=== PATIENT | female | born 1955 | race Caucasian/White ===

== ENCOUNTER 2017-02-18 10:53 | Emergency (ER) | payer MEDICAID, SELFPAY ==
[2017-02-18 10:53] VITALS: BP 112/59; PULSE 151; RESP 24; TEMP 36.2; O2SAT 91; BMI 18.6
--- NOTE | 2017-02-18 10:56 | PC.NURSE ---
fsbs 133
--- NOTE | 2017-02-18 10:58 | PC.NURSE ---
pt to ct
--- NOTE | 2017-02-18 11:04 | XR_ITS ---
XR chest AP HISTORY: ITS.REASON: abnormal heart rate ORDERING PHYSICIAN: Karo Shook MD PATIENT AGE: 61 years COMPARISON: 09/22/2015 FINDINGS: Normal heart size. Tripolar pacemaker is present from left subclavian approach.] Clip in Mediport catheter is present. The tip is difficult to visualize due to the overlying pacer wires.. There is some patchy density left lung base which may be due to an area of atelectasis or infiltrate. Clips present in the left supraclavicular region. There is an old left sixth rib fracture. No acute bony abnormalities. IMPRESSION: Left lower lobe atelectasis or infiltrate
--- NOTE | 2017-02-18 11:06 | CT_ITS ---
CT head/brain wo con HISTORY: Altered mental status, confusion, decreased consciousness, seizure versus CVA ITS.REASON: SEIZURE VS CVA ORDERING PHYSICIAN: Karo Shook MD PATIENT AGE: 61 years COMPARISON: 09/22/2015 TECHNIQUE: Axial images obtained without contrast. Brain and bone windows reviewed. FINDINGS: No midline shift, mass effect, intracranial hemorrhage, hydrocephalus, or extra-axial fluid collection is evident. There is generalized atrophy with periventricular ischemic gliotic change. There is slight increased cortical density in the right frontal area similar to the previous exam nonspecific. No acute intracranial hemorrhage. The calvarium has an unremarkable appearance. No mastoid effusion. No sinus air-fluid levels.. IMPRESSION: 1. No change from 09/22/2015 with no acute finding. 2. Atrophy with chronic ischemic change. 3. There is no evidence of intracranial hemorrhage, focal mass, or acute territorial infarction. A negative CT does not exclude an acute CVA. A follow-up head CT or MRI is recommended if neurological symptoms persist
[2017-02-18 11:09] LABS: POC Glucose,Bedside 133 mg/dL
--- NOTE | 2017-02-18 11:16 | HMH.EDGENADL ---
ED Disposition Clinical Impression: Defibrillator discharge, Sepsis, Seizure Pneumonia Qualifiers: Laterality: left Lung location: lower lobe of lung Disposition: Xfer Short-Term Hosp Condition on Discharge: Serious Instructions: DI for Altered Mental Status Referrals: Nickolas Pagan MD [Primary Care Provider] - Forms: Transfer Record - ED - Critical Care Critical Care Time: Yes Attestation: On , the high probability of a clinically significant, sudden or life threatening deterioration of the following system(s) required my full and direct attention, intervention and personal management. The time I documented below is in addition to time spent performing reported procedures but includes the following listed in this critical care notation. Total Critical Care Time: 60 Vital system(s) involved:: Circulatory Failure, Shock (Septic) My critical care processes included: Assessment & monitoring of V/S, Initial and Re-exams, Data Review/Interpretation, Coordinating Care, Medication Orders and management, Documentation Comment: consultation; d/w caregiver; d/w EMS; reassessments. Medical Decision Making Vital Signs: 02/18/17 10:53 02/18/17 11:48 02/18/17 12:00 Temperature 97.1 F L 100.3 F H Temperature Source Temporal Artery Scan Rectal Pulse Rate Pulse Rate [Apical] 151 H 133 H 125 H Respiratory Rate 24 20 20 Blood Pressure Blood Pressure [Left Arm] 112/59 116/80 117/71 Blood Pressure Mean [Left Arm] 76 92 86 Blood Pressure Source Blood Pressure Source [Left Arm] Automatic Cuff Automatic Cuff Automatic Cuff Blood Pressure Position Blood Pressure Position [Left Arm] Supine Supine Supine 02 Sat by Pulse Oximetry 91 L 97 97 Oxygen Delivery Method Room Air Room Air Room Air 02/18/17 13:01 Temperature 97.1 F L Temperature Source Temporal Artery Scan Pulse Rate 112 H Pulse Rate [Apical] Respiratory Rate 20 Blood Pressure 123/65 Blood Pressure [Left Arm] Blood Pressure Mean [Left Arm] Blood Pressure Source Automatic Cuff Blood Pressure Source [Left Arm] Blood Pressure Position Supine Blood Pressure Position [Left Arm] 02 Sat by Pulse Oximetry Oxygen Delivery Method Room Air - Lab Data Lab results reviewed: Yes: I reviewed the patient's lab results. Lab Results 02/18/17 10:55: POC Glucose 133 02/18/17 11:20: WBC 16.0 H, RBC 4.03 L, Hgb 14.8, Hct 45.1, MCV 112.0 H, MCH 36.7 H, MCHC 32.8, RDW 15.9, Plt Count 78 L, MPV 8.7, Neut % (Auto) 94.5 H, Lymph % (Auto) 3.1 L, [place] % (Auto) 1.5 L, Eos % (Auto) 0.7, Baso % (Auto) 0.3, Neut # (Auto) 15.1 H, Lymph # (Auto) 0.5 L, [place] # (Auto) 0.2, Eos # (Auto) 0.1, Baso # (Auto) 0.1, Total Counted 100, Neutrophils % (Manual) 71, Band Neutrophils % 20.0 H, Lymphocytes % (Manual) 7 L, Monocytes % (Manual) 2, Platelet Estimate Marked decrease, Macrocytosis 2+ 02/18/17 11:20: Sodium 136, Potassium 2.4 L*, Chloride 95 L, Carbon Dioxide 13 L, Anion Gap 30.4 H, BUN 18, Creatinine 1.55 H, Estimated Creat Clear 28, Estimated GFR 34 L, Est GFR ( Amer) 41 L, Glucose 142 H, Calcium 9.5, Magnesium 0.7 L, Total Bilirubin 1.0, AST 55 H, ALT 18, Alkaline Phosphatase 64, Troponin I 0.12 H, Total Protein 8.1, Albumin 3.0 L, Globulin 5.1 H, Albumin/Globulin Ratio 0.6 L, Plasma/Serum Alcohol 0 02/18/17 11:50: Urine Color Yellow, Urine Appearance Cloudy, Urine pH 6.0, Ur Specific [place] 1.020, Urine Protein 2+, Urine Glucose (UA) Negative, Urine Ketones Negative, Urine Blood 2+, Urine Nitrate Negative, Urine Bilirubin Negative, Urine Urobilinogen 0.2, Ur Leukocyte Esterase 2+ A, Urine RBC Occasional, Urine WBC 20-50, Ur Squamous Epith Cells 5-10, Urine Bacteria 4+ 02/18/17 11:53: Influenza Type A Ag Negative, Influenza Type B Ag Negative 02/18/17 : Urine Opiates Screen Negative, Ur Barbituates Screen Negative, Ur Phencyclidine Scrn Negative, Ur Amphetamines Screen Negative, U Methamphetamines Scrn Negative, U Benzodiazepines Scrn Negative, Urine Cocaine Screen Negative, U Marij
--- NOTE | 2017-02-18 11:21 | ED_ITS ---
ED Disposition Clinical Impression: Defibrillator discharge, Sepsis, Seizure Pneumonia Qualifiers: Laterality: left Lung location: lower lobe of lung Disposition: Xfer Short-Term Hosp Condition on Discharge: Serious Instructions: DI for Altered Mental Status Referrals: Nickolas Pagan MD [Primary Care Provider] - Forms: Transfer Record - ED - Critical Care Critical Care Time: Yes Attestation: On , the high probability of a clinically significant, sudden or life threatening deterioration of the following system(s) required my full and direct attention, intervention and personal management. The time I documented below is in addition to time spent performing reported procedures but includes the following listed in this critical care notation. Total Critical Care Time: 60 Vital system(s) involved:: Circulatory Failure, Shock (Septic) My critical care processes included: Assessment & monitoring of V/S, Initial and Re-exams, Data Review/Interpretation, Coordinating Care, Medication Orders and management, Documentation Comment: consultation; d/w caregiver; d/w EMS; reassessments. Medical Decision Making Vital Signs: 02/18/17 10:53 02/18/17 11:48 02/18/17 12:00 Temperature 97.1 F L 100.3 F H Temperature Source Temporal Artery Scan Rectal Pulse Rate Pulse Rate [Apical] 151 H 133 H 125 H Respiratory Rate 24 20 20 Blood Pressure Blood Pressure [Left Arm] 112/59 116/80 117/71 Blood Pressure Mean [Left Arm] 76 92 86 Blood Pressure Source Blood Pressure Source [Left Arm] Automatic Cuff Automatic Cuff Automatic Cuff Blood Pressure Position Blood Pressure Position [Left Arm] Supine Supine Supine 02 Sat by Pulse Oximetry 91 L 97 97 Oxygen Delivery Method Room Air Room Air Room Air 02/18/17 13:01 Temperature 97.1 F L Temperature Source Temporal Artery Scan Pulse Rate 112 H Pulse Rate [Apical] Respiratory Rate 20 Blood Pressure 123/65 Blood Pressure [Left Arm] Blood Pressure Mean [Left Arm] Blood Pressure Source Automatic Cuff Blood Pressure Source [Left Arm] Blood Pressure Position Supine Blood Pressure Position [Left Arm] 02 Sat by Pulse Oximetry Oxygen Delivery Method Room Air - Lab Data Lab results reviewed: Yes: I reviewed the patient's lab results. Lab Results 02/18/17 10:55: POC Glucose 133 02/18/17 11:20: WBC 16.0 H, RBC 4.03 L, Hgb 14.8, Hct 45.1, MCV 112.0 H, MCH 36.7 H, MCHC 32.8, RDW 15.9, Plt Count 78 L, MPV 8.7, Neut % (Auto) 94.5 H, Lymph % (Auto) 3.1 L, [place] % (Auto) 1.5 L, Eos % (Auto) 0.7, Baso % (Auto) 0.3, Neut # (Auto) 15.1 H, Lymph # (Auto) 0.5 L, [place] # (Auto) 0.2, Eos # (Auto) 0.1 , Baso # (Auto) 0.1, Total Counted 100, Neutrophils % (Manual) 71, Band Neutrophils % 20.0 H, Lymphocytes % (Manual) 7 L, Monocytes % (Manual) 2, Platelet Estimate Marked decrease, Macrocytosis 2+ 02/18/17 11:20: Sodium 136, Potassium 2.4 L*, Chloride 95 L, Carbon Dioxide 13 L , Anion Gap 30.4 H, BUN 18, Creatinine 1.55 H, Estimated Creat Clear 28, Estimated GFR 34 L, Est GFR ( Amer) 41 L, Glucose 142 H, Calcium 9.5, Magnesium 0.7 L, Total Bilirubin 1.0, AST 55 H, ALT 18, Alkaline Phosphatase 64 , Troponin I 0.12 H, Total Protein 8.1, Albumin 3.0 L, Globulin 5.1 H, Albumin/ Globulin Ratio 0.6 L, Plasma/Serum Alcohol 0 02/18/17 11:50: Urine Color Yellow, Urine Appearance Cloudy, Urine pH 6.0, Ur Specifi
--- NOTE | 2017-02-18 11:28 | PC.NURSE ---
Addendum entered by Mireille Adams RN 02/18/17 11:29: Pt return from ct at this time Original Note: pt to ct
[2017-02-18 11:31] LABS: Basophils # 0.1 K/mm3 (0-0.2); Basophils % 0.3 % (0.1-2.0); Eosinophils # 0.1 K/mm3 (0.0-0.4); Eosinophils % 0.7 % (0.1-12.0); Hematocrit 45.1 % (37.0-47.0); Hemoglobin 14.8 g/dL (12.2-16.2); Lymphocytes # 0.5 K/mm3 (0.7-4.5); Lymphocytes % 3.1 K/mm3 (10-50); Mean Corpuscular HGB Conc 32.8 g/dL (31.8-35.4); Mean Corpuscular Hemoglobin 36.7 pg (27.0-31.2); Mean Platelet Volume 8.7 fl (7.4-10.4); Monocytes # 0.2 K/mm3 (0.1-1.0); Monocytes % 1.5 % (1.7-9.3); Neutrophils # 15.1 K/mm3 (1.8-7.8); Neutrophils % 94.5 % (37.0-80.0); Platelet Count 78 K/mm3 (142-424); Red Blood Count 4.03 M/mm3 (4.20-5.40); Red Cell Distribution Width 15.9 % (11.5-17.5)
[2017-02-18 11:39] LABS: MANUAL DIFFERENTIAL MANUAL DIFFERENTIAL (MANUAL DIFF)
[2017-02-18 11:48] VITALS: BP 116/80; PULSE 133; RESP 20; TEMP 37.9; O2SAT 97
[2017-02-18 11:55] LABS: Microscopic, Urine URINE MICROSCOPIC (MICROSCOPIC)
[2017-02-18 12:00] VITALS: BP 117/71; PULSE 125; RESP 20; O2SAT 97
[2017-02-18 12:01] LABS: Appearance,Urine CLOUDY (Clear); Bilirubin,Urine Negative (Negative); Blood, Urine 2+ (Negative); Color,Urine YELLOW (Yellow); Glucose,Urine (UA) Negative (Negative); Ketones,Urine Negative (Negative); Leukocyte Esterase,Urine 2+ (Negative); Nitrate,Urine Negative (Negative); Protein,Urine 2+ (Negative); Urobilinogen,Urine 0.2 EU/dl (0.2)
--- NOTE | 2017-02-18 12:11 | PC.NURSE ---
contacting [facility] per ER MD request to speak with [facility]
--- NOTE | 2017-02-18 12:18 | PC.NURSE ---
Addendum entered by Mireille Adams RN 02/18/17 12:19: Speaking with Dr. Webster at [facility]. Original Note: ZEKE GAITAN speaking with Dr. Webster.
[2017-02-18 12:19] LABS: Albumin/Globulin Ratio 0.6 (1.1-1.8); Alkaline Phosphatase 64 U/L (46-116); Blood Urea Nitrogen 18 mg/dL (7-18); Calcium 9.5 mg/dL (8.5-10.1); Carbon Dioxide 13 mmol/L (21.0-32.0); Creatinine Clearance Estimated 28 mL/min (0-300); Creatinine,Serum 1.55 mg/dL (0.55-1.02); Estimated Glomerular Filt Rate 34 ml/min (>60); GFR (African American) 41 ML/MIN (>60); Globulin 5.1 gm/dl (1.3-3.2); Glucose 142 mg/dL (74-106); Total Protein,Serum 8.1 gm/dL (6.4-8.2); Troponin I 0.12 ng/ml (0.00-0.06)
--- NOTE | 2017-02-18 12:22 | PC.NURSE ---
Pt accepted to [facility]
[2017-02-18 12:23] LABS: Lactic Acid 13.5 mmol/L (0.4-2.0)
--- NOTE | 2017-02-18 12:31 | PC.NURSE ---
notified [facility] of transfer to er
[2017-02-18 12:32] LABS: Anion Gap 30.4 mEq/L (5-15); Aspartate Amino Transferase 55 U/L (15-37); Chloride 95 mmol/L (98-107); Sodium 136 mmol/L (136-145)
[2017-02-18 12:35] LABS: Ethyl Alcohol 0 mg/dL (0-99); Magnesium 0.7 mg/dL (1.4-2.2); Potassium 2.4 mmoL/L (3.5-5.1)
[2017-02-18 12:44] LABS: RBC,Urine Occasional #/hpf (0-3); WBC,Urine 20-50 #/hpf (0-3)
[2017-02-18 12:45] LABS: Bacteria,Urine 4+ /lpf
[2017-02-18 12:48] LABS: Amphetamine/Metha Screen,Urine Negative ng/mL (<1000); Barbiturates Screen,Urine Negative ng/mL (<200); Benzodiazepines Screen,Urine Negative ng/mL (200); Cannabinoid Screen,Urine Negative ng/mL (<50); Cocaine Screen,Urine Negative ng/g (<300); Methadone Screen,Urine Negative ng/mL (<300); Opiate Screen,Urine Negative ng/mL (<300); Phencyclidine Screen,Urine Negative ng/mL (<25)
[2017-02-18 12:59] LABS: Reflex Lactic Add Lactic Reflex
[2017-02-18 13:01] VITALS: BP 123/65; PULSE 112; RESP 20; TEMP 36.2; O2SAT 95
[2017-02-18 13:02] LABS: Lymphocytes % 7 % (10-50); Monocytes % 2 % (2-9); Neutrophils % 71 % (42-76); Total Cells Counted 100
[2017-02-18 13:03] LABS: Alanine Aminotransferase 18 U/L (12-78); Platelet Estimate Marked Decrease
[2017-02-18 13:04] LABS: Macrocytosis 2+
--- NOTE | 2017-02-18 13:05 | PC.NURSE ---
report given to [facility] at this time.
--- NOTE | 2017-02-18 13:08 | PC.NURSE ---
report called to YONI Tobar at [facility].
== END 2017-02-18 13:08 | disposition short-term general hospital (02) ==
PROVIDERS: Emergency Provider Emergency Medicine; Family Provider Family Medicine; PCP Family Medicine
DX: T82.118A Breakdown (mechanical) of other cardiac electronic device, initial encounter (principal); A41.9 Sepsis, unspecified organism; R56.9 Unspecified convulsions; R00.0 Tachycardia, unspecified; R41.82 Altered mental status, unspecified; F10.10 Alcohol abuse, uncomplicated; Z79.899 Other long term (current) drug therapy; Z88.0 Allergy status to penicillin; Z88.2 Allergy status to sulfonamides; Z91.040 Latex allergy status
CPT/HCPCS: 70450; 71045; 80053; 80305; 81001; 82962; 83605; 83735; 84484; 85007; 85025; 87040; 87077; 87086; 87088; 87186; 87275; 87276; 93005; 93041; 96365; 96367; 96374; 96375; 99285

== ENCOUNTER 2017-03-09 15:48 | Outpatient (CLI) | payer MEDICAID, SELFPAY ==
[2017-03-09 15:50] VITALS: BP 108/55; PULSE 68; RESP 20; TEMP 36.3; O2SAT 95
[2017-03-09 16:19] VITALS: BMI 16.4
[2017-03-09 18:35] LABS: Thyroid Stimulating Hormone 3.06 uIU/ml (0.358-3.740)
[2017-03-13 10:52] LABS: Vitamin B12 >2000 pg/mL (232-1245)
== END 2017-03-09 16:00 | disposition home or self-care (01) ==
LOC: INF 15:49
PROVIDERS: PCP Family Medicine; Visit Provider Family Medicine
DX: E03.9 Hypothyroidism, unspecified (principal); D64.9 Anemia, unspecified; I42.6 Alcoholic cardiomyopathy; I95.9 Hypotension, unspecified
CPT/HCPCS: 82607; 84443; J1642

== ENCOUNTER 2017-03-25 12:16 | Outpatient (CLI) | payer MEDICAID, SELFPAY ==
[2017-03-25 12:49] VITALS: BMI 16.9
[2017-03-25 13:38] LABS: Alanine Aminotransferase 15 U/L (12-78); Albumin Level 3.2 gm/dL (3.4-5.0); Albumin/Globulin Ratio 0.7 (1.1-1.8); Alkaline Phosphatase 64 U/L (46-116); Anion Gap 15.7 mEq/L (5-15); Aspartate Amino Transferase 12 U/L (15-37); Bilirubin,Total 0.4 mg/dL (0.2-1.0); Blood Urea Nitrogen 10 mg/dL (7-18); Calcium 8.4 mg/dL (8.5-10.1); Carbon Dioxide 24 mmol/L (21.0-32.0); Chloride 103 mmol/L (98-107); Creatinine Clearance Estimated 45 mL/min (0-300); Creatinine,Serum 0.61 mg/dL (0.55-1.02); Estimated Glomerular Filt Rate 99 ml/min (>60); GFR (African American) 120 ML/MIN (>60); Globulin 4.6 gm/dl (1.3-3.2); Glucose 89 mg/dL (74-106); Potassium 3.7 mmoL/L (3.5-5.1); Sodium 139 mmol/L (136-145); Total Protein,Serum 7.8 gm/dL (6.4-8.2)
== END 2017-03-25 13:35 | disposition home or self-care (01) ==
LOC: LAB 12:19 → INF 12:21
PROVIDERS: PCP Family Medicine; Visit Provider Family Medicine
DX: I95.9 Hypotension, unspecified (principal)
CPT/HCPCS: 80053; 93225; 93226; J1642

== ENCOUNTER 2018-04-16 13:50 | Outpatient (CLI) | payer MEDICAID, SELFPAY ==
[2018-04-16 14:05] VITALS: BMI 16.9
[2018-04-16 14:44] LABS: Alanine Aminotransferase 21 U/L (12-78); Albumin Level 3.6 gm/dL (3.4-5.0); Albumin/Globulin Ratio 0.8 (1.1-1.8); Alkaline Phosphatase 66 U/L (46-116); Anion Gap 18.7 mEq/L (5-15); Aspartate Amino Transferase 35 U/L (15-37); Bilirubin,Total 0.8 mg/dL (0.2-1.0); Blood Urea Nitrogen 18 mg/dL (7-18); Calcium 9.2 mg/dL (8.5-10.1); Carbon Dioxide 23 mmol/L (21.0-32.0); Chloride 93 mmol/L (98-107); Creatinine Clearance Estimated 44 mL/min (50-200); Creatinine,Serum 0.81 mg/dL (0.55-1.02); Estimated Glomerular Filt Rate 71 ml/min (>60); GFR (African American) 86 ML/MIN (>60); Globulin 4.3 gm/dl (1.3-3.2); Glucose 86 mg/dL (74-106); Potassium 4.7 mmoL/L (3.5-5.1); Sodium 130 mmol/L (136-145); Total Protein,Serum 7.9 gm/dL (6.4-8.2)
[2018-04-16 15:13] LABS: Thyroid Stimulating Hormone 6.49 uIU/ml (0.358-3.740)
[2018-04-19 08:01] LABS: Vitamin B12 353 pg/mL (232-1245)
== END 2018-04-16 14:25 | disposition home or self-care (01) ==
LOC: INF 14:01
PROVIDERS: Visit Provider Family Medicine
DX: E03.9 Hypothyroidism, unspecified (principal); I95.9 Hypotension, unspecified; D64.9 Anemia, unspecified; I42.6 Alcoholic cardiomyopathy
CPT/HCPCS: 80053; 82607; 84443; J1642

== ENCOUNTER 2018-04-27 00:52 | Inpatient (IN) ==
[2018-04-27 01:21] LABS: Basophils # 0.1 K/mm3 (0-0.2); Basophils % 0.6 % (0.1-2.0); Eosinophils # 0.3 K/mm3 (0.0-0.4); Eosinophils % 2.7 % (0.1-12.0); Hematocrit 36.5 % (37.0-47.0); Hemoglobin 12.4 g/dL (12.2-16.2); Lymphocytes # 3.7 K/mm3 (0.7-4.5); Lymphocytes % 33.6 % (10-50); Mean Corpuscular Hemoglobin 37.6 pg (27.0-31.2); Mean Corpuscular Volume 110.5 fl (81-99); Mean Platelet Volume 7.1 fl (7.4-10.4); Monocytes # 0.5 K/mm3 (0.1-1.0); Monocytes % 4.6 % (1.7-9.3); Neutrophils # 6.4 K/mm3 (1.8-7.8); Neutrophils % 58.5 % (37.0-80.0); Platelet Count 197 K/mm3 (142-424); Red Cell Distribution Width 15.9 % (11.5-17.5)
--- NOTE | 2018-04-27 01:39 | Emergency Department Note ---
ED Disposition Clinical Impression: Colitis, Alcoholism, Hyponatremia, Low body mass index (BMI) Pancreatitis, acute Qualifiers: Pancreatitis type: alcohol induced Acute pancreatitis complication: no infection or necrosis Qualified Code(s): K85.20 - Alcohol induced acute pancreatitis without necrosis or infection Disposition: Admitted as Observation Condition on Discharge: Fair Referrals: Provider,Referral, [Primary Care Provider] - - Critical Care Critical Care Time: No Attestation: On 04/27/18, the high probability of a clinically significant, sudden or life threatening deterioration of the following system(s) required my full and direct attention, intervention and personal management. The time I documented below is in addition to time spent performing reported procedures but includes the following listed in this critical care notation. Medical Decision Making - Medical Records Medical records reviewed: Yes: I reviewed the patient's medical records. - Juan José Inquiry Pt receiving controlled substance: No Vital Signs: 04/27/18 00:53 04/27/18 01:46 04/27/18 02:59 Temperature 97.8 F 98.7 F 97.9 F Temperature Source Oral Rectal Oral Pulse Rate [Right] 82 99 H Respiratory Rate 22 16 Blood Pressure [Right Arm] 178/98 H 135/82 Blood Pressure Mean [Right Arm] 124 99 Blood Pressure Source [Right Arm] Automatic Cuff Blood Pressure Position [Right Arm] Supine 02 Sat by Pulse Oximetry 100 89 L Oxygen Delivery Method Room Air 04/27/18 04:00 04/27/18 05:00 04/27/18 06:00 Temperature Temperature Source Pulse Rate [Right] 84 82 83 Respiratory Rate Blood Pressure [Right Arm] 124/84 131/74 133/79 Blood Pressure Mean [Right Arm] 97 93 97 Blood Pressure Source [Right Arm] Blood Pressure Position [Right Arm] 02 Sat by Pulse Oximetry 98 92 L 93 L Oxygen Delivery Method - Lab Data Lab results reviewed: Yes: I reviewed the patient's lab results. Lab Results 04/27/18 01:15: WBC 11.0 H, RBC 3.30 L, Hgb 12.4, Hct 36.5 L, MCV 110.5 H, MCH 37.6 H, MCHC 34.0, RDW 15.9, Plt Count 197, MPV 7.1 L, Neut % (Auto) 58.5, Lymph % (Auto) 33.6, [place] % (Auto) 4.6, Eos % (Auto) 2.7, Baso % (Auto) 0.6, Neut # (Auto) 6.4, Lymph # (Auto) 3.7, [place] # (Auto) 0.5, Eos # (Auto) 0.3, Baso # (Auto) 0.1 04/27/18 01:15: Sodium 128 L, Potassium 4.3, Chloride 91 L, Carbon Dioxide 21, Anion Gap 20.3 H, BUN 10, Creatinine 0.68, Estimated Creat Clear 41, Estimated GFR 87, Est GFR ( Amer) 105, Glucose 111 H, Calcium 9.6, Total Bilirubin 0.5, AST 30, ALT 13, Alkaline Phosphatase 72, C-Reactive Protein 3.1 H, Total Protein 8.3 H, Albumin 3.8, Globulin 4.5 H, Albumin/Globulin Ratio 0.8 L, Amylase 140 H, Plasma/Serum Alcohol 45 04/27/18 01:15: ESR 34 H 04/27/18 01:15: Lipase 1072 H 04/27/18 01:45: Urine Color Yellow, Urine Appearance Clear, Urine pH 7.5, Ur Specific [place] 1.015, Urine Protein 2+, Urine Glucose (UA) Negative, Urine Ketones Negative, Urine Blood 1+, Urine Nitrate Negative, Urine Bilirubin Negative, Urine Urobilinogen 0.2, Ur Leukocyte Esterase Trace, Urine RBC 10-20, Urine WBC 3-5, Ur Squamous Epith Cells Occasional, Urine Bacteria 1+ 04/27/18 01:45: Stool Occult Blood Positive A Result diagrams: 04/27/18 01:15 04/27/18 01:15 Orders (Tests/Meds): ED MEDICATIONS Generic Name Dose Route Start Last Admin Trade Name Freq PRN Reason Stop Dose Admin Sodium Chloride 1,000 mls @ 999 mls/hr 04/27/18 01:15 04/27/18 01:22 Sod Chlor 0.9% 1000ml Bag IV 04/27/18 02:15 999 mls/hr .[id number] CORBIN Administration Discontinued Medications Generic Name Dose Route Start Last Admin Trade Name Freq PRN Reason Stop Dose Admin Diatrizoate Meglum/Diatrizoate Sod 30 ml 04/27/18 01:34 04/27/18 01:48 Gastrografin 66%-10% 30ml PO 04/27/18 01:35 30 ml ONCE ONE Administration Ioversol 75 ml 04/27/18 05:03 04/27/18 05:04 Rad-Optiray 350 100ml Vial IV 04/27/18 05:04 75 ml ONCE ONE Administration Ondansetron HCl 4 mg 04/27/18 01:46 04/27/18 01:47 Zofran 4mg/2ml Vial IV 04/27/18 01:47 4 mg ONCE ONE Administration Sodium Chloride 10 ml 04/27/18 05:03 04/27/18 05:04 Rad-Saline Flush 10ml Syringe IV 04/27/18 05:04 10 ml ONCE ONE Administration ORDERS Category Date Time Status CT abdomen pelvis w con Stat Cat Scan 04/27/18 01:34 Taken Lactic Acid Stat Lab 04/27/18 06:08 Ordered Magnesium Stat Lab 04/27/18 06:13 Ordered - CT Data CT Scan: Abdomen, Pelvis Time Received: 06:[address] Reviewed: Yes: I have viewed the radiologist's interpretation Preliminary Findings: Abnormal (colitis ) - Physician Consults Physician Consulted: ayesha Reason -: Admission General Adult HPI - General Chief complaint: PAIN Stated complaint: rectal bleeding Time Seen by Provider: 04/27/18 01:10 Mode of Arrival: EMS Source of Information: Patient, EMS, Medical Record Limitations: No Limitations Description of Symptoms (Recalled from ER Triage Doc. by RN): Pt states she had pain inher rectum with bleeding for a month, worse tonight - History of Present Illness HPI narrative: pt with c/o of rectal bleeding and rectal pain worse tonight but has hx of sx over the last few weeks - also has hx of etoh daily use- Onset (ago): day(s) Location: buttocks Severity: moderate Associated symptoms: denies other symptoms Treatments prior to arrival: none - Related Data Home Medications Medication Instructions Recorded Confirmed Carvedilol [Carvedilol 12.5mg Tab] 12.5 mg PO BID 02/18/17 04/27/18 Cholecalciferol (Vitamin D3) 2,000 iunits PO DAILY 02/18/17 04/27/18 [Vitamin D3] Estradiol 1 mg PO DAILY 02/18/17 04/27/18 Gabapentin [Gabapentin 300mg Cap] 300 mg PO TID 02/18/17 04/27/18 Levothyroxine Sodium 125 mcg PO DAILY 02/18/17 04/27/18 [Levothyroxine 125mcg (0.125mg) Tab] Oxazepam [Serax 10mg Capsule] 10 mg PO BID 02/18/17 04/27/18 Oxybutynin Chloride [Ditropan 5mg 10 mg PO TID 04/16/18 04/27/18 tablet] Allergies Allergy/AdvReac Type Severity Reaction Status Date / Time lisinopril [LISINOPRIL] Allergy Severe S-SWELLS-OR Verified 04/27/18 01:05 AL/THROAT Penicillins [PENICILLINS] Allergy Severe S-SWELLS-OR Verified 04/27/18 01:05 AL/THROAT Sulfa (Sulfonamide Allergy Severe S-SKIN Verified 04/27/18 01:05 Antibiotics) ERUPTIONS [SULFA (SULFONAMIDE ANTIBIOTICS)] sulfamethoxazole Allergy Severe S-SKIN Verified 04/27/18 01:05 [From BACTRIM] ERUPTIONS trimethoprim [From BACTRIM] Allergy Severe S-SKIN Verified 04/27/18 01:05 ERUPTIONS latex [LATEX] Allergy Intermediate I-RASH Verified 04/27/18 01:05 BANANAS (FOOD) Allergy Severe THROAT Uncoded 01/27/17 15:12 SWELLS [facility] History - Hepatitis A Screen Drug use history?: No High risk sexual behaviors?: No History of sexually transmitted infection?: No Currently employed?: No Childcare worker?: No Do you have indoor plumbing?: Yes Do you have electricity?: Yes Attestation statement:: This patient has been screened for Hepatitis A risk factors. I have reviewed the patient's past medical history: Yes Medical History: Denies:: Diabetes Mellitus Type 1, Diabetes Mellitus Type 2 - Social History Smoking Status: Current every day smoker Tobacco Type: cigarettes # Packs/Day (cigarettes): 1 Alcohol Intake: current Alcohol Intake Frequency:: 3 or more drinks per day Occupational Status: disabled - Psychiatric History Expresses thoughts of harming self/others: None Suicide Plan Description: No Plan ROS Obtained: Yes All systems reviewed & no additional complaints - Constitutional Constitutional: Denies fever(s), Reports weakness - Eyes Eyes: Denies change in vision - ENT Ears, Nose, Mouth, and Throat: Denies dizziness - Cardiovascular Cardiovascular: Denies chest pain - Respiratory Respiratory: No cough - Gastrointestinal Gastrointestingal: Reports: bright red blood in stools, other (rectal pain). Denies: abdominal pain, diarrhea - Genitourinary Female Genitourinary: Denies dysuria - Musculoskeletal Musculoskeletal: Denies joint swelling - Integumentary/Breasts Skin/Breast: Denies rash - Neurologic Neurologic: Denies seizure-like activity Physical Exam - General General appearance: in no apparent distress, cachectic - Head Head exam: normocephalic - Eye Eye exam: Present: PERRL, EOMI. Absent: scleral icterus - ENT ENT exam: Present: mucous membranes dry - Neck Neck exam: Present: trachea midline - Respiratory Respiratory exam: Present: normal lung sounds bilaterally. Absent: respiratory distress - Cardiovascular Cardiovascular exam: Present: regular rate, systolic murmur, +S4 - Abdominal Exam Abdominal exam: Present: soft Abdominal tenderness: Present: LLQ, moderate - Rectal Exam Rectal exam: Present: heme (+) stool. Absent: hemorrhoids - Extremities Exam Extremities exam: Absent: calf tenderness - Neurological Exam Neurological exam: Present: alert, CN II-XII intact - Psychiatric Psychiatric exam: Present: anxious - Skin Skin exam: Absent: rash
[2018-04-27 01:40] LABS: Albumin Level 3.8 gm/dL (3.4-5.0); Albumin/Globulin Ratio 0.8 (1.1-1.8); Anion Gap 20.3 mEq/L (5-15); Bilirubin,Total 0.5 mg/dL (0.2-1.0); Calcium 9.6 mg/dL (8.5-10.1); Globulin 4.5 gm/dl (1.3-3.2); Potassium 4.3 mmoL/L (3.5-5.1); Total Protein,Serum 8.3 gm/dL (6.4-8.2)
[2018-04-27 01:51] LABS: C-Reactive Protein 3.1 mg/L (0.0-0.9)
[2018-04-27 01:54] LABS: Microscopic, Urine URINE MICROSCOPIC (MICROSCOPIC)
[2018-04-27 01:55] LABS: Appearance,Urine CLEAR (Clear); Bilirubin,Urine Negative (Negative); Blood, Urine 1+ (Negative); Color,Urine YELLOW (Yellow); Glucose,Urine (UA) Negative (Negative); Ketones,Urine Negative (Negative); Leukocyte Esterase,Urine TRACE (Negative); PH,Urine 7.5 (5.0-8.5); Protein,Urine 2+ (Negative); Specific Gravity, Urine 1.015 (1.005-1.030); Urobilinogen,Urine 0.2 EU/dl (0.2)
[2018-04-27 02:02] LABS: Bacteria,Urine 1+ /lpf; Squamous Epithelial Cell,Urine Occasional #/hpf (0-5)
--- NOTE | 2018-04-27 07:41 | Pharmacy Consult Notes ---
[facility] Pharmacy VTE Monitoring - Patient Demographics Admission date: 04/27/18 Report Date: 04/27/18 Time: 07:41 Allergies/Adverse Reactions: Patient Allergies lisinopril [LISINOPRIL] Allergy (Severe, Verified 04/27/18 01:05) [id number]/THROAT Penicillins [PENICILLINS] Allergy (Severe, Verified 04/27/18 01:05) [id number]/THROAT Sulfa (Sulfonamide Antibiotics) [SULFA (SULFONAMIDE ANTIBIOTICS)] Allergy (Severe, Verified 04/27/18 01:05) S-SKIN ERUPTIONS sulfamethoxazole [From BACTRIM] Allergy (Severe, Verified 04/27/18 01:05) S-SKIN ERUPTIONS trimethoprim [From BACTRIM] Allergy (Severe, Verified 04/27/18 01:05) S-SKIN ERUPTIONS latex [LATEX] Allergy (Intermediate, Verified 04/27/18 01:05) I-RASH BANANAS (FOOD) Allergy (Severe, Uncoded 01/27/17 15:12) THROAT SWELLS Height: 1.7 m Weight: 45.359 kg Patient Problems: Current Active Problems Alcoholism (Acute) Pancreatitis, acute (Acute) Colitis (Acute) Hyponatremia (Acute) Low body mass index (BMI) (Acute) - VTE Risk Labs: VTE Related Lab Results Hgb 12.4 g/dL (12.2-16.2) 04/27/18 01:15 Hct 36.5 % (37.0-47.0) L 04/27/18 01:15 Plt Count 197 K/mm3 (142-424) 04/27/18 01:15 BUN 10 mg/dL (7-18) 04/27/18 01:15 Creatinine 0.68 mg/dL (0.55-1.02) 04/27/18 01:15 Estimated Creat Clear 41 mL/min (50-200) 04/27/18 01:15 Clinical Trial Participant: No - Prophylaxis VTE Prophylaxis Ordered?: Yes Types of VTE Prophylaxis: TEDS Knee High
--- NOTE | 2018-04-27 10:29 | History & Physical Report ---
*Admission Date: 04/27/18 *Chief complaint: Rectal bleeding *History of present illness: Ms. Ramirez is a 62-year-old female with a history of hypertension, alcohol abuse, peripheral neuropathy, cardiomyopathy, biventricular ICD implant, hypothyroidism, COPD, history of oral cancer, and anxiety and depression who presented to [facility] about 12 midnight complaining of rectal bleeding. She states she has been having rectal bleeding intermittently for the last month and she noticed yesterday an increase in the bleeding. She states the blood filled the toilet and was also on the toilet paper after wiping. She states she she had pain around the rectum which extended up through her abdomen to her lower chest. She ate and drank as usual yesterday. She did have some dry heaves from sinus drainage. Patient is noted to be an alcoholic. She states she drinks from the time she gets up until the time she goes to bed. Her choice is vodka with water and ice. She does smoke a pack and half of cigarettes a day. After admission patient denies any rectal pain. Rectal per Dr. Pagan revealed no hemorrhoids and no blood. Pancreatic enzymes are elevated. Patient denies any nausea or vomiting at present. She states she has been constipated and with the blood she has had some hard stool. CT of the abdomen revealed colitis of the distal descending colon and rectum. She was thus admitted and started on Flagyl, IV fluids, potassium and Levaquin. [facility] History Medical History: Reports:: Anxiety, Cancer (Mouth), Cardiomyopathy, Depression, Internal Pacemaker Denies:: Diabetes Mellitus Type 1, Diabetes Mellitus Type 2, MRSA *Have you ever received a pneumonia vaccine?: No *Have you received a flu vaccine this season?: Yes Other Medical History: Reports: Thyroid Disease Laterality Cases: Bilateral: Cataract, Myringotomy (Ear Tubes) Other Surgeries: Yes: Hysterectomy-Total, Pacemaker Amputation: No Comment: Bottom teeth extraction: Needle biopsy of both breast; Bartholin's duct cyst removal of the left labia; left radical neck dissection with trach; explor atory lap with right colon; incision and drainage of the left neck; biopsy on jaw; bilateral left. - *Social History Educational Level: Attended High School Smoking Status: Current every day smoker Tobacco Type: cigarettes # Packs/Day (cigarettes): 2 Alcohol Intake: current Alcohol Intake Frequency:: 3 or more drinks per day (Drinks from the time she gets up until the time she goes to bed; drinks vodka with water and ice) *Occupational Status:: disabled *Travel in the last 8 weeks: None - Psychiatric History Expresses thoughts of harming self/others: None Suicide Plan Description: No Plan Family Hx:: Cancer Review of Systems - Constitutional Denies body ache(s), Denies fever(s), Denies headache(s) - ENT Reports nasal congestion, Reports post nasal drip, Reports sore throat, Denies ear pain Comments: States she has terrible sinus issues with postnasal drainage, rhinorrhea, and thus a sore throat. - *Cardiovascular Denies chest pain, Denies shortness of breath - *Respiratory Reports cough (Chronic), Reports shortness of breath (Wears oxygen at night), Denies chest congestion - *Gastrointestinal Reports abdominal pain (Along with rectal pain), Reports change in bowel habits, Reports change in stools, Reports constipation, Reports nausea, Denies bloating, Denies coffee ground vomit, Denies heartburn, Denies vomiting blood, Denies black, tarry stools, Denies vomiting - *Genitourinary Reports urinary incontinence, Denies painful urination - *Musculoskeletal Reports decreased muscle mass, Reports muscle weakness - *Neurologic Reports weakness, Denies dizziness, Denies seizure-like activity - Psychiatric Reports depression Meds Home Medications Medication Instructions Recorded Confirmed Type Carvedilol [Carvedilol 12.5mg Tab] 12.5 mg PO BID 02/18/17 04/27/18 History Estradiol 1 mg PO DAILY 02/18/17 04/27/18 History Levothyroxine Sodium 125 mcg PO DAILY 02/18/17 04/27/18 History [Levothyroxine 125mcg (0.125mg) Tab] Oxybutynin Chloride [Ditropan 5mg 5 mg PO TID 04/16/18 04/27/18 History tablet] Albuterol Sulfate [Albuterol HFA 2 puffs IH Q6HP PRN 04/27/18 04/27/18 History Inhaler] Ergocalciferol (Vitamin D2) 2,000 unit PO DAILY 04/27/18 04/27/18 History [Vitamin D2] Ferrous Sulfate 325 mg PO BID 04/27/18 04/27/18 History Gabapentin [Gabapentin 300mg Cap] 300 mg PO TID 04/27/18 04/27/18 History Oxazepam [Serax 10mg Capsule] 10 mg PO BID 04/27/18 04/27/18 History Raloxifene HCl 60 mg PO DAILY 04/27/18 04/27/18 History Sertraline HCl [Zoloft 100mg 100 mg PO BID 04/27/18 04/27/18 History tablet] Spironolactone 25 mg PO DAILY 04/27/18 04/27/18 History Sucralfate [Sucralfate 1gm 2 gm PO BID 04/27/18 04/27/18 History Tab] Allergies Allergy/AdvReac Type Severity Reaction Status Date / Time lisinopril [LISINOPRIL] Allergy Severe S-SWELLS-OR Verified 04/27/18 01:05 AL/THROAT Penicillins [PENICILLINS] Allergy Severe S-SWELLS-OR Verified 04/27/18 01:05 AL/THROAT Sulfa (Sulfonamide Allergy Severe S-SKIN Verified 04/27/18 01:05 Antibiotics) ERUPTIONS [SULFA (SULFONAMIDE ANTIBIOTICS)] sulfamethoxazole Allergy Severe S-SKIN Verified 04/27/18 01:05 [From BACTRIM] ERUPTIONS trimethoprim [From BACTRIM] Allergy Severe S-SKIN Verified 04/27/18 01:05 ERUPTIONS latex [LATEX] Allergy Intermediate I-RASH Verified 04/27/18 01:05 BANANAS (FOOD) Allergy Severe THROAT Uncoded 01/27/17 15:12 SWELLS Exam Vital signs and Labs for Last 24 Hours: Temp Pulse Resp BP Pulse Ox 97.7 F 92 H 20 112/41 L 98 04/27/18 07:20 04/27/18 07:20 04/27/18 07:20 04/27/18 07:20 04/27/18 08:02 Laboratory Results - last 24 hr 04/27/18 01:15: WBC 11.0 H, RBC 3.30 L, Hgb 12.4, Hct 36.5 L, MCV 110.5 H, MCH 37.6 H, MCHC 34.0, RDW 15.9, Plt Count 197, MPV 7.1 L, Neut % (Auto) 58.5, Lymph % (Auto) 33.6, [place] % (Auto) 4.6, Eos % (Auto) 2.7, Baso % (Auto) 0.6, Neut # (Auto) 6.4, Lymph # (Auto) 3.7, [place] # (Auto) 0.5, Eos # (Auto) 0.3, Baso # (Auto) 0.1 04/27/18 01:15: Sodium 128 L, Potassium 4.3, Chloride 91 L, Carbon Dioxide 21, Anion Gap 20.3 H, BUN 10, Creatinine 0.68, Estimated Creat Clear 41, Estimated GFR 87, Est GFR ( Amer) 105, Glucose 111 H, Calcium 9.6, Total Bilirubin 0.5, AST 30, ALT 13, Alkaline Phosphatase 72, C-Reactive Protein 3.1 H, Total Protein 8.3 H, Albumin 3.8, Globulin 4.5 H, Albumin/Globulin Ratio 0.8 L, Amylase 140 H, Plasma/Serum Alcohol 45 04/27/18 01:15: ESR 34 H 04/27/18 01:15: Lipase 1072 H 04/27/18 01:40: Magnesium 0.6 L, TSH 5.00 H, Thyroxine (T4) 12.3 04/27/18 01:45: Urine Color Yellow, Urine Appearance Clear, Urine pH 7.5, Ur Specific [place] 1.015, Urine Protein 2+, Urine Glucose (UA) Negative, Urine Ketones Negative, Urine Blood 1+, Urine Nitrate Negative, Urine Bilirubin Negative, Urine Urobilinogen 0.2, Ur Leukocyte Esterase Trace, Urine RBC 10-20, Urine WBC 3-5, Ur Squamous Epith Cells Occasional, Urine Bacteria 1+ 04/27/18 01:45: Stool Occult Blood Positive A 04/27/18 06:15: Lactate 0.7 I & O for Last 24 hours: Intake & Output 04/24/18 04/25/18 04/26/18 04/27/18 11:59 11:59 11:59 11:59 Intake Total 3600 / 3600 Output Total 900 / 900 Balance 2700 / 2700 Weight 100 lb Radiology Reports for the Last 24 Hours: 04/27/2018 CT of abdomen and pelvis IMPRESSION: 1. Aranda catheter present with suspected cystitis 2. Colitis of the distal descending, colon, and rectum 3. Prior right hemicolectomy with pulmonary stool filled distal segment of the small bowel at the ileocolic anastomosis which could be related to an atonic segment or stricture at the ileocolic anastomosis 04/27/2018 chest x-ray IMPRESSION: COPD, no change with no acute finding. - Constitutional no acute distress Comments: Appears comfortable and is conversant - *Routine HEENT Exam Head: Present: atraumatic Eye: Present: PERRL. Absent: conjunctival icterus, scleral injection, conjunctivae pink ENT: Present: mucous membranes moist, oropharynx clear - *Routine Neck Exam Absent: carotid bruit, lymphadenopathy, thyromegaly, tenderness - *Routine Respiratory Exam Present: CTA bilaterally (Anteriorly and posteriorly) - *Routine Cardiovascular Exam Present: RRR - *Routine Abdominal Exam Present: soft, normoactive bowel sounds, tenderness (Epigastrium). Absent: distended - *Routine Rectal Exam Comments: Rectal exam per Dr. Pagan revealed no blood and no hemorrhoids - *Routine Extremities Exam Absent: edema, calf tenderness - *Routine Neurological Exam Present: alert, oriented X3 Assessment and Plan (1) Alcoholism Current visit: Yes Status: Acute Category: Medical Code(s): F10.20 - Alcohol dependence, uncomplicated (2) Colitis Current visit: Yes Status: Acute Category: Medical Code(s): K52.9 - Noninfective gastroenteritis and colitis, unspecified (3) Hyponatremia Current visit: Yes Status: Acute Category: Medical Code(s): E87.1 - Hypo- osmolality and hyponatremia (4) Low body mass index (BMI) Current visit: Yes Status: Acute Category: Medical (5) Pancreatitis, acute Current visit: Yes Status: Acute Qualifiers: Pancreatitis type: alcohol induced Acute pancreatitis complication: no infection or necrosis Qualified Code(s): K85.20 - Alcohol induced acute pancreatitis without necrosis or infection Category: Medical Code(s): K85.90 - Acute pancreatitis without necrosis or infection, unspecified (6) Alcohol intoxication Current visit: No Status: Acute Category: Medical Code(s): F10.929 - Alcohol use, unspecified with intoxication, unspecified (7) Hypothyroidism Current visit: Yes Status: Chronic Category: Medical Code(s): E03.9 - Hypothyroidism, unspecified (8) Peripheral neuropathy Current visit: Yes Status: Chronic Category: Medical Code(s): G62.9 - Polyneuropathy, unspecified (9) Cardiomyopathy Current visit: Yes Status: Chronic Category: Medical Code(s): I42.9 - Cardiomyopathy, unspecified - Assessment and plan all Dx Assessment and Plan for all problems:: TSH was found to be high and Synthroid was increased to 150 mcg daily. She will remain on Levaquin and Flagyl for now as well as NS IV fluids at 100 cc/h to increase sodium. She will be started back on her carvedilol, Ventolin, sertrali ne, sucralfate and Aldactone. Will monitor H&H as well as stools. We will start a low-fat diet.
--- NOTE | 2018-04-28 08:08 | Progress Note ---
Internal Medicine - PN: Subj *Date: 04/28/18 *Time: 08:05 Interval history: Patient states she has been awake most of the night. She states she is then on the bedside commode for about 4 hours with frequent diarrhea. She noted blood in the stool and blood when she wiped. She did have an episode with a prolapsed rectum which she says happens all the time at home. If she sits on a firm surface is reduced. She said some nausea and dry heaves due to her sinus drainage. She describes leg cramps and soreness. She has had abdominal cramping as well. She denies chest pain and shortness of breath. She did not want to eat her breakfast this morning due to the nausea. Exam Vital signs and Labs for Last 24 Hours: Temp Pulse Resp BP Pulse Ox 98.0 F 95 H 16 103/63 L 95 04/28/18 04:00 04/28/18 04:00 04/28/18 04:00 04/28/18 04:00 04/28/18 04:00 I & O for Last 24 hours: Intake & Output 04/25/18 04/26/18 04/27/18 04/28/18 11:59 11:59 11:59 11:59 Intake Total 3600 / 3600 2520 / 2520 Output Total 900 / 900 1200 / 1200 Balance 2700 / 2700 1320 / 1320 Weight 100 lb 110 lb 6 oz - Constitutional no acute distress Comments: Frail - *Routine Respiratory Exam Comments: Rhonchi which clear with cough - *Routine Cardiovascular Exam Present: RRR - *Routine Abdominal Exam Present: soft, normoactive bowel sounds, tenderness (Diffuse). Absent: distended - *Routine Extremities Exam Present: calf tenderness. Absent: edema, palpable cord - *Routine Neurological Exam Present: alert, oriented X3 Assessment and Plan (1) Alcoholism Current visit: Yes Status: Acute Category: Medical Code(s): F10.20 - Alcohol dependence, uncomplicated (2) Colitis Current visit: Yes Status: Acute Category: Medical Code(s): K52.9 - Noninfective gastroenteritis and colitis, unspecified (3) Hyponatremia Current visit: Yes Status: Acute Category: Medical Code(s): E87.1 - Hypo- osmolality and hyponatremia (4) Low body mass index (BMI) Current visit: Yes Status: Acute Category: Medical (5) Pancreatitis, acute Current visit: Yes Status: Acute Qualifiers: Pancreatitis type: alcohol induced Acute pancreatitis complication: no infection or necrosis Qualified Code(s): K85.20 - Alcohol induced acute pancreatitis without necrosis or infection Category: Medical Code(s): K85.90 - Acute pancreatitis without necrosis or infection, unspecified (6) Alcohol intoxication Current visit: No Status: Acute Category: Medical Code(s): F10.929 - Alcohol use, unspecified with intoxication, unspecified (7) Hypothyroidism Current visit: Yes Status: Chronic Category: Medical Code(s): E03.9 - Hypothyroidism, unspecified (8) Peripheral neuropathy Current visit: Yes Status: Chronic Category: Medical Code(s): G62.9 - Polyneuropathy, unspecified (9) Cardiomyopathy Current visit: Yes Status: Chronic Category: Medical Code(s): I42.9 - Cardiomyopathy, unspecified - Assessment and plan all Dx Assessment and Plan for all problems:: Stat labs ordered. We will continue with IV fluids and antibiotics
[2018-04-28 08:57] LABS: Basophils % 0.5 % (0.1-2.0); Eosinophils # 0.2 K/mm3 (0.0-0.4); Eosinophils % 3.1 % (0.1-12.0); Hematocrit 30.7 % (37.0-47.0); Hemoglobin 10.2 g/dL (12.2-16.2); Lymphocytes # 1.4 K/mm3 (0.7-4.5); Lymphocytes % 21.2 % (10-50); Mean Corpuscular HGB Conc 33.2 g/dL (31.8-35.4); Mean Corpuscular Hemoglobin 37.5 pg (27.0-31.2); Mean Corpuscular Volume 112.9 fl (81-99); Mean Platelet Volume 8.2 fl (7.4-10.4); Monocytes # 0.4 K/mm3 (0.1-1.0); Monocytes % 5.7 % (1.7-9.3); Neutrophils # 4.6 K/mm3 (1.8-7.8); Neutrophils % 69.4 % (37.0-80.0); Platelet Count 125 K/mm3 (142-424); Red Blood Count 2.72 M/mm3 (4.20-5.40); Red Cell Distribution Width 15.7 % (11.5-17.5); White Blood Count 6.7 K/mm3 (4.8-10.8)
[2018-04-28 09:08] LABS: Albumin Level 2.6 gm/dL (3.4-5.0); Albumin/Globulin Ratio 0.7 (1.1-1.8); Anion Gap 14.2 mEq/L (5-15); Bilirubin,Total 0.5 mg/dL (0.2-1.0); Globulin 3.9 gm/dl (1.3-3.2); Potassium 4.2 mmoL/L (3.5-5.1); Total Protein,Serum 6.5 gm/dL (6.4-8.2)
--- NOTE | 2018-04-29 08:31 | Progress Note ---
Internal Medicine - PN: Subj *Date: 04/29/18 *Time: 08:29 Interval history: Patient states she is still nauseated this morning and does not want to eat her breakfast. She still complaining of some pain in her upper abdomen. She denies any vomiting. She still has had some diarrhea. She states she did rest last night. Exam Vital signs and Labs for Last 24 Hours: Temp Pulse Resp BP Pulse Ox 98.9 F 103 H 18 135/73 93 L 04/29/18 08:00 04/29/18 08:00 04/29/18 08:00 04/29/18 08:00 04/29/18 08:00 Laboratory Results - last 24 hr 04/28/18 08:40: WBC 6.7 D, RBC 2.72 L, Hgb 10.2 L, Hct 30.7 L, MCV 112.9 H, MCH 37.5 H, MCHC 33.2, RDW 15.7, Plt Count 125 L D, MPV 8.2, Neut % (Auto) 69.4, Lymph % (Auto) 21.2, [place] % (Auto) 5.7, Eos % (Auto) 3.1, Baso % (Auto) 0.5, Neut # (Auto) 4.6, Lymph # (Auto) 1.4, [place] # (Auto) 0.4, Eos # (Auto) 0.2, Baso # (Auto) 0.0 04/28/18 08:40: Sodium 130 L, Potassium 4.2, Chloride 97 L, Carbon Dioxide 23, Anion Gap 14.2, BUN 8, Creatinine 0.67, Estimated Creat Clear 45, Estimated GFR 89, Est GFR ( Amer) 107, Glucose 97, Calcium 8.0 L D, Total Bilirubin 0.5, AST 19 D, ALT 9 L D, Alkaline Phosphatase 49, Total Protein 6.5, Albumin 2.6 L D, Globulin 3.9 H, Albumin/Globulin Ratio 0.7 L, Amylase 84 04/28/18 08:40: Lipase 498 H 04/28/18 10:43: Stl Aeromonas (PCR) Not detected, Stl C. cayetanensis PCR Not detected, Stool Rotavirus (PCR) Not detected, Stl Adenov F 40/41 PCR Not detecte d, Stool Astrovirus (PCR) Not detected, Stool Campylobacter PCR Not detected, Stl C.difficile Tox PCR Not detected, Stool Cryptosporidium PCR Not detected, Stl E.coli Shiga Tox PCR Not detected, Stool E coli O157 PCR Not detected, Stl Enterotoxigenic E PCR Not detected, Stool EPEC (PCR) Not detected, Stool EAEC (PCR) Not detected, Stl E. histolytica PCR Not detected, Stool Giardia Lamblia PCR Not detected, Stool Salmonella PCR Not detected, Stool Sapovirus (PCR) Not detected, Stl P. shigelloides PCR Not detected, Stl Shigella/EIEC PCR Not detected, St Y.enterocolitica PCR Not detected, Stool Vibrio (PCR) Not detected, Stl Vibrio cholerae PCR Not detected, Stl Norovirus GI/GII PCR Not detected I & O for Last 24 hours: Intake & Output 04/26/18 04/27/18 04/28/18 04/29/18 11:59 11:59 11:59 11:59 Intake Total 3600 / 3600 2840 / 2840 3211 / 3211 Output Total 900 / 900 1200 / 1200 400 / 400 Balance 2700 / 2700 1640 / 1640 2811 / 2811 Weight 100 lb 110 lb 6 oz 110 lb 5.991 oz - Constitutional no acute distress - *Routine Respiratory Exam Present: rhonchi (clears with cough). Absent: crackles - *Routine Cardiovascular Exam Present: RRR - *Routine Abdominal Exam Present: soft, normoactive bowel sounds, tenderness (epigastric area) - *Routine Extremities Exam Absent: cyanosis, clubbing, edema Assessment and Plan (1) Alcoholism Current visit: Yes Status: Acute Category: Medical Code(s): F10.20 - Alcohol dependence, uncomplicated (2) Colitis Current visit: Yes Status: Acute Category: Medical Code(s): K52.9 - Noninfective gastroenteritis and colitis, unspecified (3) Hyponatremia Current visit: Yes Status: Acute Category: Medical Code(s): E87.1 - Hypo- osmolality and hyponatremia (4) Low body mass index (BMI) Current visit: Yes Status: Acute Category: Medical (5) Pancreatitis, acute Current visit: Yes Status: Acute Qualifiers: Pancreatitis type: alcohol induced Acute pancreatitis complication: no infection or necrosis Qualified Code(s): K85.20 - Alcohol induced acute pancreatitis without necrosis or infection Category: Medical Code(s): K85.90 - Acute pancreatitis without necrosis or inf ection, unspecified (6) Alcohol intoxication Current visit: No Status: Acute Category: Medical Code(s): F10.929 - Alcohol use, unspecified with intoxication, unspecified (7) Hypothyroidism Current visit: Yes Status: Chronic Category: Medical Code(s): E03.9 - Hypothyroidism, unspecified (8) Peripheral neuropathy Current visit: Yes Status: Chronic Category: Medical Code(s): G62.9 - Polyneuropathy, unspecified (9) Cardiomyopathy Current visit: Yes Status: Chronic Category: Medical Code(s): I42.9 - Cardiomyopathy, unspecified - Assessment and plan all Dx Assessment and Plan for all problems:: Will continue antibiotics and discuss further care with Dr. urbina.
--- NOTE | 2018-04-29 21:43 | Discharge Summary ---
General - General Admission date:: 04/27/18 Discharge date: 04/29/18 HPI HPI: Ms. Ramirez is a 62-year-old female with a history of hypertension, alcohol abuse, peripheral neuropathy, cardiomyopathy, biventricular ICD implant, hypothyroidism, COPD, history of oral cancer, and anxiety and depression who presented to [facility] about 12 midnight complaining of rectal bleeding. She states she has been having rectal bleeding intermittently for the last month and she noticed yesterday an increase in the bleeding. She states the blood filled the toilet and was also on the toilet paper after wiping. She states she she had pain around the rectum which extended up through her abdomen to her lower chest. She ate and drank as usual yesterday. She did have some dry heaves from sinus drainage. Patient is noted to be an alcoholic. She states she drinks from the time she gets up until the time she goes to bed. Her choice is vodka with water and ice. She does smoke a pack and half of cigarettes a day. After admission patient denies any rectal pain. Rectal per Dr. Pagan revealed no hemorrhoids and no blood. Pancreatic enzymes are elevated. Patient denies any nausea or vomiting at present. She states she has been constipated and with the blood she has had some hard stool. CT of the abdomen revealed colitis of the distal descending colon and rectum. She was thus admitted and started on Flagyl, IV fluids, potassium and Levaquin. Hospital Course Hospital Course: The patient's CT scan showed colitis of the distal descending colon and rectum. She was started on Levaquin and Flagyl as well as IV fluids due to hyponatremia. Her TSH was found to be elevated, therefore her Synthroid was increased to 150 mcg daily. She was started back on some of her home medications. She was also started on a low-fat diet. Her amylase and lipase were found to be elevated and her stool was positive for blood. The patient stated she was unable to sleep and had been having frequent diarrhea with blood in the stool. She did have an episode with a prolapsed rectum, which she said happens all the time at home, and if she sits on a firm surface, it is reduced. She complained of nausea and dry heaves as well as leg cramps and soreness. She had abdominal cramping as well. IV fluids and antibiotics were continued. Lorazepam and Phenergan were scheduled. Her amylase normalized and her lipase decreased. Her sodium improved and her white blood cell count normalized. A diarrhea panel was negative. She began feeling better and was able to rest and eat a small amount. She denied any further nausea and vomiting but still had some diarrhea. She was stable to be discharged home on continued Levaquin for her colitis and will follow-up in the office with Dr. Pagan. Objective Vital signs: Temp Pulse Resp BP Pulse Ox 98.9 F 103 H 18 135/73 93 L 04/29/18 08:00 04/29/18 08:00 04/29/18 08:00 04/29/18 08:00 04/29/18 08:00 Narrative: - Constitutional no acute distress Comments: Appears comfortable and is conversant - *Routine HEENT Exam Head: Present: atraumatic Eye: Present: PERRL. Absent: conjunctival icterus, scleral injection, conjunctivae pink ENT: Present: mucous membranes moist, oropharynx clear - *Routine Neck Exam Absent: carotid bruit, lymphadenopathy, thyromegaly, tenderness - *Routine Respiratory Exam Present: CTA bilaterally (Anteriorly and posteriorly) - *Routine Cardiovascular Exam Present: RRR - *Routine Abdominal Exam Present: soft, normoactive bowel sounds, tenderness (Epigastrium). Absent: distended - *Routine Rectal Exam Comments: Rectal exam per Dr. Pagan revealed no blood and no hemorrhoids - *Routine Extremities Exam Absent: edema, calf tenderness - *Routine Neurological Exam Present: alert, oriented X3 DS: Diagnosis - Discharge Diagnosis (1) Alcoholism Status: Acute (2) Colitis Status: Acute (3) Hyponatremia Status: Acute (4) Low body mass index (BMI) Status: Acute (5) Pancreatitis, acute Status: Acute (6) Alcohol intoxication Status: Acute (7) Hypothyroidism Status: Chronic (8) Peripheral neuropathy Status: Chronic (9) Cardiomyopathy Status: Chronic Discharge Plan - Patient Discharge Instructions ACTIVITY: Limited activity DIET: low fat, low cholesterol Patient Instructions: Peripheral Neuropathy, DI for Pancreatitis, DI for Alcohol Abuse, DI for Hyponatremia, DI for Rectal Bleeding, DI for Colitis - Follow up Plan Follow up with: Berta Pagan MD [Staff Physician] - 05/04/18 Disposition: Home, Self-Nursing Home Medications: Home Medications Medication Instructions Recorded Confirmed Type Carvedilol [Carvedilol 12.5mg Tab] 12.5 mg PO BID 02/18/17 04/27/18 History Estradiol 1 mg PO DAILY 02/18/17 04/27/18 History Oxybutynin Chloride [Ditropan 5mg 5 mg PO TID 04/16/18 04/27/18 History tablet] Albuterol Sulfate [Albuterol HFA 2 puffs IH Q6HP PRN 04/27/18 04/27/18 History Inhaler] Ergocalciferol (Vitamin D2) 2,000 unit PO DAILY 04/27/18 04/27/18 History [Vitamin D2] Ferrous Sulfate 325 mg PO BID 04/27/18 04/27/18 History Gabapentin [Gabapentin 300mg Cap] 300 mg PO TID 04/27/18 04/27/18 History Oxazepam [Serax 10mg Capsule] 10 mg PO BID 04/27/18 04/27/18 History Raloxifene HCl 60 mg PO DAILY 04/27/18 04/27/18 History Sertraline HCl [Zoloft 100mg 100 mg PO BID 04/27/18 04/27/18 History tablet] Spironolactone 25 mg PO DAILY 04/27/18 04/27/18 History Sucralfate [Sucralfate 1gm 2 gm PO BID 04/27/18 04/27/18 History Tab] Levothyroxine Sodium [Synthroid 150 mcg PO DAILYDM #30 tablet 04/29/18 Rx 150mcg (0.15mg) tablet] Promethazine HCl [Phenergan 25mg 25 mg PO TID #30 tablet 04/29/18 Rx tab] levoFLOXacin [Levaquin 500mg 500 mg PO DAILY #5 tab 04/29/18 Rx tab] Prescriptions/Medication Reconciliation: New Levothyroxine Sodium [Synthroid 150mcg (0.15mg) tablet] 150 mcg PO DAILYDM #30 tablet Promethazine HCl [Phenergan 25mg tab] 25 mg PO TID #30 tablet levoFLOXacin [Levaquin 500mg tab] 500 mg PO DAILY #5 tab Continue Carvedilol [Carvedilol 12.5mg Tab] 12.5 mg PO BID Estradiol 1 mg PO DAILY Spironolactone 25 mg PO DAILY Sertraline HCl [Zoloft 100mg tablet] 100 mg PO BID Ergocalciferol (Vitamin D2) [Vitamin D2] 2,000 unit PO DAILY Ferrous Sulfate 325 mg PO BID Albuterol Sulfate [Albuterol HFA Inhaler] 2 puffs IH Q6HP PRN PRN Reason: Shortness Of Breath Or Wheezing Gabapentin [Gabapentin 300mg Cap] 300 mg PO TID Oxybutynin Chloride [Ditropan 5mg tablet] 5 mg PO TID Sucralfate [Sucralfate 1gm Tab] 2 gm PO BID Raloxifene HCl 60 mg PO DAILY Oxazepam [Serax 10mg Capsule] 10 mg PO BID Discontinued Levothyroxine Sodium [Levothyroxine 125mcg (0.125mg) Tab] 125 mcg PO DAILY
== END 2018-04-29 10:50 | disposition home or self-care (01) | DRG 391 ==
LOC: 2ND 00:52 → ER 00:52 → 2ND 07:27
PROVIDERS: ADMIT Emergency Medicine; ATTEND Family Medicine
CPT/HCPCS: 71010; 71045; 74177; 80053; 81001; 82150; 82272; 83605; 83690; 83735; 84436; 84443; 85025; 85651; 86140; 87507; 93005; 96365; 96367; 96375; 99285; G0328; J1642; J1956; J2405; Q9967

== ENCOUNTER → 2018-05-18 10:00 | Outpatient (CLI) | payer MEDICAID, SELFPAY | PROVIDERS: PCP Family Medicine; Visit Provider Family Medicine | DX: D64.9 Anemia, unspecified (principal) | CPT/HCPCS: 88305 ==

== ENCOUNTER 2018-06-13 16:30 | Inpatient (IN) ==
--- NOTE | 2018-06-13 16:42 | Emergency Department Note ---
ED Disposition Clinical Impression: Hypomagnesemia, Dehydration Alcohol withdrawal Qualifiers: Complication of substance-induced condition: with unspecified complication Qualified Code(s): F10.239 - Alcohol dependence with withdrawal, unspecified Vomiting Qualifiers: Vomiting type: unspecified Vomiting Intractability: non-intractable Nausea presence: with nausea Qualified Code(s): R11.2 - Nausea with vomiting, unspecified Aspiration pneumonia Qualifiers: Aspiration pneumonia type: unspecified Laterality: right Lung location: lower lobe of lung Qualified Code(s): J69.0 - Pneumonitis due to inhalation of food and vomit Disposition: Admitted as Observation Condition on Discharge: [facility] - Critical Care Critical Care Time: No Attestation: On 06/13/18, the high probability of a clinically significant, sudden or life threatening deterioration of the following system(s) required my full and direct attention, intervention and personal management. The time I documented below is in addition to time spent performing reported procedures but includes the following listed in this critical care notation. Medical Decision Making - Juan José Inquiry Pt receiving controlled substance: Yes Juan José was queried for this patient: No Reason not queried -: Emergent pt cond-no time Risks and benefits of using a controlled substance: were not discussed with pt by me Comment: Ativan for Etoh withdrawal Vital Signs: 06/13/18 16:30 06/13/18 16:46 06/13/18 17:00 Pulse Rate [Right Brachial] 75 75 77 Respiratory Rate 18 16 Blood Pressure [Right Arm] 98/67 L 99/62 L Blood Pressure Mean [Right Arm] 77 74 Blood Pressure Source [Right Arm] Automatic Cuff Blood Pressure Position [Right Arm] Sitting 02 Sat by Pulse Oximetry 95 98 94 L Oxygen Delivery Method Room Air Room Air Oxygen Flow Rate (LPM) 06/13/18 18:00 06/13/18 18:30 06/13/18 19:00 Pulse Rate [Right Brachial] 73 77 73 Respiratory Rate 16 Blood Pressure [Right Arm] 92/55 L 94/70 L 102/70 L Blood Pressure Mean [Right Arm] 67 78 80 Blood Pressure Source [Right Arm] Automatic Cuff Automatic Cuff Blood Pressure Position [Right Arm] Sitting Sitting 02 Sat by Pulse Oximetry 94 L 100 100 Oxygen Delivery Method Nasal Cannula Nasal Cannula Oxygen Flow Rate (LPM) 2 2 - Lab Data Lab Results 06/13/18 16:45: WBC 8.6, RBC 3.39 L, Hgb 12.0 L, Hct 35.7 L, MCV 105.5 H, MCH 35.6 H, MCHC 33.7, RDW 16.3, Plt Count 107 L, MPV 7.7, Neut % (Auto) 63.6, Lymph % (Auto) 27.4, [place] % (Auto) 5.1, Eos % (Auto) 3.2, Baso % (Auto) 0.7, Neut # (Auto) 5.5, Lymph # (Auto) 2.4, [place] # (Auto) 0.4, Eos # (Auto) 0.3, Baso # (Auto) 0.1 06/13/18 16:45: PT 10.0, INR 0.97 06/13/18 17:15: Sodium 127 L, Potassium 3.5, Chloride 89 L, Carbon Dioxide 25, Anion Gap 16.5 H, BUN 20 H, Creatinine 1.64 H, Estimated Creat Clear 25, Estimated GFR 32 L, Est GFR ( Amer) 38 L, Glucose 74, Calcium 8.2 L, Total Bilirubin 0.8, AST 46 H, ALT 23, Alkaline Phosphatase 59, Total Protein 7.6, Albumin 3.2 L, Globulin 4.4 H, Albumin/Globulin Ratio 0.7 L, Plasma/Serum Alcohol 87 06/13/18 17:15: Magnesium 0.5 L Result diagrams: 06/13/18 16:45 06/13/18 17:15 Orders (Tests/Meds): ED MEDICATIONS Generic Name Dose Route Start Last Admin Trade Name Freq PRN Reason Stop Dose Admin Multivitamins 10 ml/ Thiamine 1,015 mls @ 150 mls/hr 06/13/18 17:15 06/13/18 17:15 HCl 100 mg/ Magnesium Sulfate IV 06/14/18 00:00 150 mls/hr 2 gm/ Lactated Ringer's .[id number] CORBIN Administration Levofloxacin/Dextrose 750 mg in 150 mls @ 100 mls/hr 06/13/18 19:15 Levofloxacin 750mg/150ml Premix IV 06/27/18 19:14 Q24H [facility] Protocol Clindamycin Phosphate 900 mg/ 106 mls @ 100 mls/hr 06/13/18 19:15 Sodium Chloride IV 06/27/18 19:14 Q8H [facility] Protocol Discontinued Medications Generic Name Dose Route Start Last Admin Trade Name Freq PRN Reason Stop Dose Admin Folic Acid 1 mg 06/13/18 17:01 06/13/18 17:15 Folic Acid 1mg Tablet PO 06/13/18 17:02 1 mg ONCE ONE Administration Lorazepam 1 mg 06/13/18 17:02 06/13/18 17:15 Ativan 2mg/Ml Vial IV 06/13/18 17:03 1 mg ONCE ONE Administration Sodium Chloride 1,000 ml 06/13/18 17:49 Sod Chlor 0.9% 1000ml Bag IV 06/13/18 17:50 BOLUS ONE ORDERS Category Date Time Status CT head/brain wo con Stat Cat Scan 06/13/18 17:00 Taken Chest XR 2 view (NOT portable) [XR chest 2V] Stat Exams 06/13/18 18:24 Taken XR chest portable Stat Exams 06/13/18 18:12 Taken - Radiology Data #1 Image(s): Chest Image Reviewed: Yes I reviewed the patient's radiology image Atelectasis and airspace disease right base - CT Data CT Scan: Head Time Received: 17:[address] Reviewed: Yes: I have viewed the radiologist's interpretation Findings Narrative: CT scan interpreted by [facility] radiologist. Faxed report received and reviewed: Negative for acute intracranial pathology. - ECG Data Tracing #1 EKG interpreted by Miller Wei MD: Rhythm: Ventricular paced rhythm Rate: 72 No evidence of acute ischemia or injury - Physician Consults Physician Consulted: Ej Time: 18:17 Reason -: Admission Comment/Response: Agrees to admit the patient to the hospital. We discussed the patient's clinical information, including history, exam, laboratory and radiology results and ED course. Per hospital procedure, I will write temporary bridge inpatient orders on the patient. Specific orders requested by the admitting physician: Continue IV fluids. Alcohol withdrawal protocol. Additional Consult: Ej Time: 19:12 Reason -: Pt condition Comment/Response: Discussed x-ray findings, risk for aspiration given seizures and vomiting and an alcoholic. Will start Levaquin and clindamycin. Medical Decision Narrative: 6:25 PM: O2 saturation 80s on room air with good waveform. Patient denies shortness of breath. Says she has oxygen that she wears at home at night, 4 L. Placed on nasal cannula oxygen. Chest x-ray ordered. General Adult HPI - General Stated complaint: Seizure Time Seen by Provider: 06/13/18 16:44 - History of Present Illness HPI narrative: Patient states that she had 3 or 4 seizures this morning. She has had alcohol- related seizures in the past, but she says usually just one at a time. States she has been sick for about 3 days with vomiting. Trying to replenish with water. She is an alcoholic with chronic daily alcohol consumption. She says she was only able to drink 1 shot today. She was having the shakes today and feels like she is having withdrawal. Possibly some diarrhea, "some people my call it that". - Related Data Home Medications Medication Instructions Recorded Confirmed Carvedilol [Carvedilol 12.5mg Tab] 12.5 mg PO BID 02/18/17 06/13/18 Gabapentin [Gabapentin 300mg Cap] 300 mg PO TID 04/27/18 06/13/18 Spironolactone 25 mg PO DAILY 04/27/18 06/13/18 Levothyroxine Sodium [Synthroid 150 mcg PO DAILYDM 06/13/18 06/13/18 150mcg (0.15mg) tablet] Allergies Allergy/AdvReac Type Severity Reaction Status Date / Time lisinopril [LISINOPRIL] Allergy Severe S-SWELLS-OR Verified 04/27/18 01:05 AL/THROAT Penicillins [PENICILLINS] Allergy Severe S-SWELLS-OR Verified 04/27/18 01:05 AL/THROAT Sulfa (Sulfonamide Allergy Severe S-SKIN Verified 04/27/18 01:05 Antibiotics) ERUPTIONS [SULFA (SULFONAMIDE ANTIBIOTICS)] sulfamethoxazole Allergy Severe S-SKIN Verified 04/27/18 01:05 [From BACTRIM] ERUPTIONS trimethoprim [From BACTRIM] Allergy Severe S-SKIN Verified 04/27/18 01:05 ERUPTIONS latex [LATEX] Allergy Intermediate I-RASH Verified 04/27/18 01:05 metronidazole AdvReac Severe Gastrointestinal Verified 04/29/18 10:12 Upset BANANAS (FOOD) Allergy Severe THROAT Uncoded 01/27/17 15:12 [facility] History - Hepatitis A Screen Attestation statement:: This patient has been screened for Hepatitis A risk factors. I have reviewed the patient's past medical history: Yes Medical History: Reports:: Anxiety, Cancer (Mouth), Cardiomyopathy, Depression, Internal Pacemaker Denies:: Diabetes Mellitus Type 1, Diabetes Mellitus Type 2, MRSA Other Medical History: Reports: Thyroid Disease Laterality Cases: Bilateral: Myringotomy (Ear Tubes) Other Surgeries: Yes: Hysterectomy-Total, Pacemaker Amputation: No Comment: Bottom teeth extraction: Needle biopsy of both breast; Bartholin's duct cyst removal of the left labia; left radical neck dissection with trach; exploratory lap with right colon; incision and drainage of the left neck; biopsy on jaw; bilateral left. - Social History Smoking Status: Current every day smoker Tobacco Type: cigarettes # Packs/Day (cigarettes): 2 Alcohol Intake: current Alcohol Intake Frequency:: 3 or more drinks per day (Drinks from the time she ge ts up until the time she goes to bed; drinks vodka with water and ice) Occupational Status: disabled - Psychiatric History Pschychiatric History:: Reports:: Anxiety, Depression Family Hx:: Cancer ROS Obtained: Yes All systems reviewed & no additional complaints - Constitutional Constitutional: Denies fever(s) - ENT Ears, Nose, Mouth, and Throat: Denies nasal discharge, Denies sore throat - Cardiovascular Cardiovascular: Denies chest pain - Respiratory Respiratory: No cough, No dyspnea - Gastrointestinal Gastrointestingal: Reports: diarrhea, bright red blood in stools (Admitted to this hospital 04/27/2018 for rectal bleeding/colitis. Continues), nausea, vomiting. Denies: abdominal pain - Neurologic Neurologic: Reports convulsions, Denies headache(s) Physical Exam - General General appearance: alert, in no apparent distress - Head Head exam: atraumatic, normocephalic - Eye Eye exam: Present: normal appearance, EOMI - ENT ENT exam: Present: mucous membranes moist - Neck Neck exam: Present: normal inspection, trachea midline - Chest Chest inspection: Present: normal inspection, symmetric chest wall rise - Respiratory Respiratory exam: Present: normal lung sounds bilaterally. Absent: respiratory distress - Cardiovascular Cardiovascular exam: Present: regular rate, normal rhythm, normal heart sounds - Abdominal Exam Abdominal exam: Present: soft. Absent: distention, tenderness - Extremities Exam Extremities exam: Present: normal inspection - Neurological Exam Neurological exam: Present: alert, oriented X3, CN II-XII intact. Absent: motor sensory deficit - Psychiatric Psychiatric exam: Present: normal affect, normal mood - Skin Skin exam: Present: warm, dry
[2018-06-13 16:59] LABS: Basophils # 0.1 K/mm3 (0-0.2); Basophils % 0.7 % (0.1-2.0); Eosinophils # 0.3 K/mm3 (0.0-0.4); Eosinophils % 3.2 % (0.1-12.0); Hematocrit 35.7 % (37.0-47.0); Lymphocytes # 2.4 K/mm3 (0.7-4.5); Lymphocytes % 27.4 % (10-50); Mean Corpuscular HGB Conc 33.7 g/dL (31.8-35.4); Mean Corpuscular Hemoglobin 35.6 pg (27.0-31.2); Mean Corpuscular Volume 105.5 fl (81-99); Mean Platelet Volume 7.7 fl (7.4-10.4); Monocytes # 0.4 K/mm3 (0.1-1.0); Monocytes % 5.1 % (1.7-9.3); Neutrophils # 5.5 K/mm3 (1.8-7.8); Neutrophils % 63.6 % (37.0-80.0); Platelet Count 107 K/mm3 (142-424); Red Blood Count 3.39 M/mm3 (4.20-5.40); Red Cell Distribution Width 16.3 % (11.5-17.5); White Blood Count 8.6 K/mm3 (4.8-10.8)
[2018-06-13 17:15] LABS: INR 0.97 (0.9-1.1)
[2018-06-13 17:45] LABS: Albumin Level 3.2 gm/dL (3.4-5.0); Albumin/Globulin Ratio 0.7 (1.1-1.8); Anion Gap 16.5 mEq/L (5-15); Bilirubin,Total 0.8 mg/dL (0.2-1.0); Calcium 8.2 mg/dL (8.5-10.1); Globulin 4.4 gm/dl (1.3-3.2); Potassium 3.5 mmoL/L (3.5-5.1); Total Protein,Serum 7.6 gm/dL (6.4-8.2)
[2018-06-13 23:20] LABS: Amphetamine/Metha Screen,Urine Negative ng/mL (<1000); Barbiturates Screen,Urine Negative ng/mL (<200); Benzodiazepines Screen,Urine Negative ng/mL (<200); Cannabinoid Screen,Urine Negative ng/mL (<50); Cocaine Screen,Urine Negative ng/mL (<300); Methadone Screen,Urine Negative ng/mL (<300); Opiate Screen,Urine Negative ng/mL (<300); Phencyclidine Screen,Urine Negative ng/mL (<25)
[2018-06-14 05:48] LABS: Anion Gap 13.3 mEq/L (5-15); Potassium 3.3 mmoL/L (3.5-5.1)
[2018-06-14 05:50] LABS: Calcium 6.9 mg/dL (8.5-10.1)
--- NOTE | 2018-06-14 07:39 | Pharmacy Consult Notes ---
[facility] Pharmacy VTE Monitoring - Patient Demographics Admission date: 06/13/18 Report Date: 06/14/18 Time: 07:39 Allergies/Adverse Reactions: Patient Allergies lisinopril [LISINOPRIL] Allergy (Severe, Verified 04/27/18 01:05) [id number]/THROAT Penicillins [PENICILLINS] Allergy (Severe, Verified 04/27/18 01:05) [id number]/THROAT Sulfa (Sulfonamide Antibiotics) [SULFA (SULFONAMIDE ANTIBIOTICS)] Allergy (Severe, Verified 04/27/18 01:05) S-SKIN ERUPTIONS sulfamethoxazole [From BACTRIM] Allergy (Severe, Verified 04/27/18 01:05) S-SKIN ERUPTIONS trimethoprim [From BACTRIM] Allergy (Severe, Verified 04/27/18 01:05) S-SKIN ERUPTIONS latex [LATEX] Allergy (Intermediate, Verified 04/27/18 01:05) I-RASH metronidazole Adverse Reaction (Severe, Verified 04/29/18 10:12) Gastrointestinal Upset BANANAS (FOOD) Allergy (Severe, Uncoded 01/27/17 15:12) THROAT SWELLS Height: 1.7 m Weight: 48.081 kg Patient Problems: Current Active Problems (Updated 06/13/18 @ 19:13 by Miller Wei MD) Alcohol withdrawal (Acute) Hypomagnesemia (Acute) Vomiting (Acute) Dehydration (Acute) Aspiration pneumonia (Acute) - VTE Risk Labs: VTE Related Lab Results Hgb 12.0 g/dL (12.2-16.2) L 06/13/18 16:45 Hct 35.7 % (37.0-47.0) L 06/13/18 16:45 Plt Count 107 K/mm3 (142-424) L 06/13/18 16:45 PT 10.0 seconds (9.4-11.8) 06/13/18 16:45 INR 0.97 (0.9-1.1) 06/13/18 16:45 APTT 27.7 seconds (23.6-34.0) 06/13/18 17:15 BUN 21 mg/dL (7-18) H 06/14/18 05:30 Creatinine 1.11 mg/dL (0.55-1.02) H D 06/14/18 05:30 Estimated Creat Clear 39 mL/min (50-200) 06/14/18 05:30 Clinical Trial Participant: No - Prophylaxis VTE Prophylaxis Ordered?: Yes Types of VTE Prophylaxis: TEDS Knee High
--- NOTE | 2018-06-14 09:07 | History & Physical Report ---
*Admission Date: 06/13/18 *Chief complaint: Seizure activity *History of present illness: Mr. Ramirez is a 62-year-old female with a history of alcoholism, hypertension, peripheral neuropathy, cardiomyopathy, biventricular ICD implant, and tobacco abuse who presented to [facility] after having 3-4 seizures at home. Her significant other who is caring for her and assisting her to the bathroom witnessed the seizures. He states that every time he tried to get her she would again begin to have another seizure. After the fourth seizure she requested to be taken to the emergency room. Patient states she has been sick for the last 2 to 3 days with nausea and vomiting. She denies having any diarrhea or fever or upper respiratory signs or symptoms. She has been able to retain water and continue to drink although much less. Her normal drink is vodka and water. In the emergency room with evaluation she received IV fluid bolus, clindamycin and Levaquin IV for pneumonia, and then admitted for further evaluation and treatment. During the night patient did develop hypotension and received additional IV fluid boluses after which her blood pressure did respond and is normal this a.m. This a.m. patient is requesting to go home. She states she did eat breakfast without nausea or vomiting. She denies diarrhea. She has voided without problems. She states the abscess in her left perineum is barely draining and only when trying to express fluid. [facility] History Medical History: Reports:: Anxiety, Cancer (MOUTH CANCER), Cardiomyopathy, Chronic Obstructive Pulmonary Disease (COPD), Depression, Hypertension, Internal Pacemaker Denies:: Diabetes Mellitus Type 1, Diabetes Mellitus Type 2, MRSA *Have you ever received a pneumonia vaccine?: No *Have you received a flu vaccine this season?: Yes Other Medical History: Reports: Anemia, Hypothyroidism, Thyroid Disease Comment:: Peripheral neuropathy, biventricular ICD pacemaker Laterality Cases: Bilateral: Cataract, Myringotomy (Ear Tubes) Other Surgeries: Yes: Hysterectomy-Total, Pacemaker Amputation: No Fractures: No Comment: Bottom teeth extracted, pathologists cyst of the left labia surgery, surgery on her gums in 2009, left radical neck dissection, exploratory laparotomy with right colon 2011, cardiac pacemaker with replacement in 2013, bilateral eye lift 2015 - *Social History Educational Level: Attended High School Smoking Status: Current every day smoker Tobacco Type: cigarettes # Packs/Day (cigarettes): 1 Alcohol Intake: current Alcohol Intake Frequency:: 3 or more drinks per day *Occupational Status:: disabled Housing: house *Travel in the last 8 weeks: None - Psychiatric History Expresses thoughts of harming self/others: None Suicide Plan Description: No Plan Pschychiatric History:: Reports:: Anxiety, Depression Family Hx:: Cancer, Hyperlipidemia, Hypertension Review of Systems - Constitutional Reports headache(s), Reports weakness - ENT Denies ear pain, Denies sore throat - *Cardiovascular Denies chest pain, Denies shortness of breath - *Respiratory Denies chest congestion, Denies cough, Denies shortness of breath - *Gastrointestinal Reports nausea, Reports vomiting, Denies change in bowel habits - *Genitourinary Denies difficulty urinating - *Musculoskeletal Denies body aches - *Neurologic Reports seizure-like activity, Denies behavioral changes, Denies confusion, Denies headache(s) Meds Home Medications Medication Instructions Recorded Confirmed Type Carvedilol [Carvedilol 12.5mg Tab] 12.5 mg PO BID 02/18/17 06/13/18 History Spironolactone 25 mg PO DAILY 04/27/18 06/13/18 History Levothyroxine Sodium [Synthroid 150 mcg PO DAILY 06/13/18 06/14/18 History 150mcg (0.15mg) tablet] Albuterol Sulfate [Albuterol HFA 2 puffs IH QIDP PRN 06/14/18 06/14/18 History Inhaler] Cholecalciferol (Vitamin D3) 2,000 units PO DAILY 06/14/18 06/14/18 History [Vitamin D3] Estradiol 1 mg PO DAILY 06/14/18 06/14/18 History Ferrous Sulfate 325 mg PO BID 06/14/18 06/14/18 History Gabapentin [Gabapentin 100mg Cap] 100 mg PO TID 06/14/18 06/14/18 History Oxybutynin Chloride [Ditropan 5mg 5 mg PO TID 06/14/18 06/14/18 History tablet] Raloxifene HCl 60 mg PO DAILY 06/14/18 06/14/18 History Sertraline HCl [Zoloft] 100 mg PO BID 06/14/18 06/14/18 History Sucralfate [Carafate 1gm Tab] 2 gm PO BID 06/14/18 06/14/18 History Allergies Allergy/AdvReac Type Severity Reaction Status Date / Time lisinopril [LISINOPRIL] Allergy Severe S-SWELLS-OR Verified 04/27/18 01:05 AL/THROAT Penicillins [PENICILLINS] Allergy Severe S-SWELLS-OR Verified 04/27/18 01:05 AL/THROAT Sulfa (Sulfonamide Allergy Severe S-SKIN Verified 04/27/18 01:05 Antibiotics) ERUPTIONS [SULFA (SULFONAMIDE ANTIBIOTICS)] sulfamethoxazole Allergy Severe S-SKIN Verified 04/27/18 01:05 [From BACTRIM] ERUPTIONS trimethoprim [From BACTRIM] Allergy Severe S-SKIN Verified 04/27/18 01:05 ERUPTIONS latex [LATEX] Allergy Intermediate I-RASH Verified 04/27/18 01:05 metronidazole AdvReac Severe Gastrointestinal Verified 04/29/18 10:12 Upset BANANAS (FOOD) Allergy Severe THROAT Uncoded 01/27/17 15:12 SWELLS Exam Vital signs and Labs for Last 24 Hours: Temp Pulse Resp BP Pulse Ox 97.5 F L 73 16 111/62 100 06/14/18 04:00 06/14/18 04:00 06/14/18 04:00 06/14/18 04:00 06/14/18 04:00 Laboratory Results - last 24 hr 06/13/18 16:45: WBC 8.6, RBC 3.39 L, Hgb 12.0 L, Hct 35.7 L, MCV 105.5 H, MCH 35.6 H, MCHC 33.7, RDW 16.3, Plt Count 107 L, MPV 7.7, Neut % (Auto) 63.6, Lymph % (Auto) 27.4, [place] % (Auto) 5.1, Eos % (Auto) 3.2, Baso % (Auto) 0.7, Neut # (Auto) 5.5, Lymph # (Auto) 2.4, [place] # (Auto) 0.4, Eos # (Auto) 0.3, Baso # (Auto) 0.1 06/13/18 16:45: PT 10.0, INR 0.97 06/13/18 17:15: Sodium 127 L, Potassium 3.5, Chloride 89 L, Carbon Dioxide 25, Anion Gap 16.5 H, BUN 20 H, Creatinine 1.64 H, Estimated Creat Clear 25, Estimated GFR 32 L, Est GFR ( Amer) 38 L, Glucose 74, Calcium 8.2 L, Total Bilirubin 0.8, AST 46 H, ALT 23, Alkaline Phosphatase 59, Total Protein 7.6, Albumin 3.2 L, Globulin 4.4 H, Albumin/Globulin Ratio 0.7 L, Plasma/Serum Alcohol 87 06/13/18 17:15: Magnesium 0.5 L 06/13/18 17:15: APTT 27.7 06/13/18 17:15: Phosphorus 5.6 H 06/13/18 19:35: Lactate 2.9 H 06/13/18 23:05: Urine Opiates Screen Negative, Urine Methadone Screen Negative, Ur Barbituates Screen Negative, Ur Phencyclidine Scrn Negative, Ur Amphetamines Screen Negative, U Benzodiazepines Scrn Negative, Urine Cocaine Screen Negative, U Marijuana (THC) Screen Negative 06/13/18 23:30: Lactate 1.4 06/14/18 05:30: Sodium 130 L, Potassium 3.3 L, Chloride 96 L, Carbon Dioxide 24, Anion Gap 13.3, BUN 21 H, Creatinine 1.11 H D, Estimated Creat Clear 39, Estimated GFR 49 L, Est GFR ( Amer) 60 D, Glucose 65 L, Calcium 6.9 L D I & O for Last 24 hours: Intake & Output 06/11/18 06/12/18 06/13/18 06/14/18 11:59 11:59 11:59 11:59 Intake Total 3350 / 3350 Output Total 500 / 500 Balance 2850 / 2850 Weight 106 lb Radiology Reports for the Last 24 Hours: 06/13/2018 chest x-ray IMPRESSION: No change COPD, right middle lobe infiltrate, cardiac pacemaker, and right subclavian Mediport catheter Chest x-ray 06/13/2018 There is a small area of lucency noted involving the shaft of the proximal aspect of the right humeral shaft nonspecific. A small lytic lesion is not excluded patient with history of tongue cancer. Dedicated films of the humerus may be of further value. Addendum Dictated By: Noah Andrews MD Addendum Signed By: <Electronically signed by Noah Andrews MD in [place]> Date/Time: 06/14/18 0440 Addendum Cosigned By: Date/Time: DD/ /28/438 XR chest portable HISTORY: Hypoxia, smoker, tongue cancer ITS.REASON: hypoxia ORDERING PHYSICIAN: Berta Pagan MD PATIENT AGE: 62 years COMPARISON: 04/27/2018 FINDINGS: COPD. Normal heart size. Right subclavian Mediport catheter present. The tip is in the region of the superior vena cava. Tripolar pacemaker present from left subclavian approach. The lung bases are underpenetrated. There is consolidation in the right middle lobe. Surgical clips are present in the left neck. No acute bony anomalies. IMPRESSION: Right middle lobe infiltrate with COPD 06/13/2018 CT of the head IMPRESSION: No acute intracranial findings - Constitutional no acute distress, thin - *Routine HEENT Exam Head: Present: normocephalic, atraumatic Eye: Present: PERRL. Absent: conjunctival icterus, scleral injection ENT: Present: mucous membranes moist, oropharynx clear - *Routine Neck Exam Present: supple, thyromegaly. Absent: carotid bruit, lymphadenopathy - *Routine Respiratory Exam Present: CTA bilaterally - *Routine Cardiovascular Exam Present: RRR - *Routine Abdominal Exam Present: soft, normoactive bowel sounds. Absent: tenderness, distended - *Routine Extremities Exam Present: pulses intact. Absent: edema, calf tenderness - *Routine Neurological Exam Present: alert, oriented X3 Assessment and Plan (1) Hypotension Current visit: Yes Status: Acute Category: Medical Code(s): I95.9 - Hypotension, unspecified (2) Aspiration pneumonia Current visit: Yes Status: Acute Qualifiers: Aspiration pneumonia type: unspecified Laterality: right Lung location: lower lobe of lung Qualified Code(s): J69.0 - Pneumonitis due to inhalation of food and vomit Category: Medical Code(s): J69.0 - Pneumonitis due to inhalation of food and vomit (3) Dehydration Current visit: Yes Status: Acute Category: Medical Code(s): E86.0 - Dehydration (4) Hypomagnesemia Current visit: Yes Status: Acute Category: Medical Code(s): E83.42 - Hyp omagnesemia (5) Vomiting Current visit: Yes Status: Acute Qualifiers: Vomiting type: unspecified Vomiting Intractability: non-intractable Nausea presence: with nausea Qualified Code(s): R11.2 - Nausea with vomiting, unspecified Category: Medical Code(s): R11.10 - Vomiting, unspecified (6) Hyponatremia Current visit: No Status: Acute Category: Medical Code(s): E87.1 - Hypo- osmolality and hyponatremia (7) Low body mass index (BMI) Current visit: No Status: Acute Category: Medical (8) Seizure Current visit: No Status: Acute Category: Medical Code(s): R56.9 - Unspecified convulsions (9) Cardiomyopathy Current visit: No Status: Chronic Category: Medical Code(s): I42.9 - Cardiomyopathy, unspecified (10) Hypothyroidism Current visit: No Status: Chronic Category: Medical Code(s): E03.9 - Hypothyroidism, unspecified (11) Peripheral neuropathy Current visit: No Status: Chronic Category: Medical Code(s): G62.9 - Polyneuropathy, unspecified - Assessment and plan all Dx Assessment and Plan for all problems:: Continue with IV fluids and antibiotics. P.o. potassium added. Some of home meds have been started.
--- NOTE | 2018-06-15 09:22 | Progress Note ---
Internal Medicine - PN: Subj *Date: 06/15/18 *Time: :19 Interval history: Her blood pressure is low this morning and she is already received her carvedilol. I wonder if she needs steroids due to some adrenal insufficiency. I will give Solu-Medrol and continue on prednisone 20 mg a day. We will continue other treatments at present. Exam Vital signs and Labs for Last 24 Hours: Temp Pulse Resp BP Pulse Ox 97.7 F 82 18 105/61 L 94 L 06/15/18 04:00 06/15/18 04:00 06/15/18 04:00 06/15/18 04:00 06/15/18 04:00 I & O for Last 24 hours: Intake & Output 06/12/18 06/13/18 06/14/18 06/15/18 11:59 11:59 11:59 11:59 Intake Total 3470 / 3470 3440 / 3440 Output Total 500 / 500 250 / 250 Balance 2970 / 2970 3190 / 3190 Weight 106 lb 117 lb - Constitutional Comments: Appears weak pale. - *Routine Respiratory Exam Present: CTA bilaterally - *Routine Cardiovascular Exam Present: RRR - *Routine Abdominal Exam Present: soft - *Routine Extremities Exam Present: edema (Normal) Assessment and Plan (1) Hypotension Current visit: Yes Status: Acute Category: Medical Code(s): I95.9 - Hypotension, unspecified (2) Aspiration pneumonia Current visit: Yes Status: Acute Qualifiers: Aspiration pneumonia type: unspecified Laterality: right Lung location: lower lobe of lung Qualified Code(s): J69.0 - Pneumonitis due to inhalation of food and vomit Category: Medical Code(s): J69.0 - Pneumonitis due to inhalation of food and vomit (3) Dehydration Current visit: Yes Status: Acute Category: Medical Code(s): E86.0 - Dehydration (4) Hypomagnesemia Current visit: Yes Status: Acute Category: Medical Code(s): E83.42 - Hypomagnesemia (5) Vomiting Current visit: Yes Status: Acute Qualifiers: Vomiting type: unspecified Vomiting Intractability: non-intractable Nausea presence: with nausea Qualified Code(s): R11.2 - Nausea with vomiting, unspecified Category: Medical Code(s): R11.10 - Vomiting, unspecified (6) Hyponatremia Current visit: No Status: Acute Category: Medical Code(s): E87.1 - Hypo- osmolality and hyponatremia (7) Low body mass index (BMI) Current visit: No Status: Acute Category: Medical (8) Seizure Current visit: No Status: Acute Category: Medical Code(s): R56.9 - Unspecified convulsions (9) Cardiomyopathy Current visit: No Status: Chronic Category: Medical Code(s): I42.9 - Cardi omyopathy, unspecified (10) Hypothyroidism Current visit: No Status: Chronic Category: Medical Code(s): E03.9 - Hypothyroidism, unspecified (11) Peripheral neuropathy Current visit: No Status: Chronic Category: Medical Code(s): G62.9 - Polyneuropathy, unspecified - Assessment and plan all Dx Assessment and Plan for all problems:: See orders.
[2018-06-15 14:24] LABS: Basophils % 0.2 % (0.1-2.0); Eosinophils # 0.1 K/mm3 (0.0-0.4); Eosinophils % 3.6 % (0.1-12.0); Hematocrit 26.9 % (37.0-47.0); Hemoglobin 9.2 g/dL (12.2-16.2); Lymphocytes # 0.4 K/mm3 (0.7-4.5); Lymphocytes % 13.3 % (10-50); Mean Corpuscular HGB Conc 34.2 g/dL (31.8-35.4); Mean Corpuscular Hemoglobin 36.5 pg (27.0-31.2); Mean Corpuscular Volume 106.7 fl (81-99); Mean Platelet Volume 7.7 fl (7.4-10.4); Monocytes # 0.1 K/mm3 (0.1-1.0); Monocytes % 3.9 % (1.7-9.3); Neutrophils # 2.6 K/mm3 (1.8-7.8); Platelet Count 72 K/mm3 (142-424); Red Blood Count 2.52 M/mm3 (4.20-5.40); Red Cell Distribution Width 16.9 % (11.5-17.5); White Blood Count 3.2 K/mm3 (4.8-10.8)
[2018-06-15 14:32] LABS: Anion Gap 12.2 mEq/L (5-15); Potassium 4.2 mmoL/L (3.5-5.1)
[2018-06-15 14:33] LABS: Calcium 6.7 mg/dL (8.5-10.1)
[2018-06-16 06:32] LABS: Basophils % 0.1 % (0.1-2.0); Eosinophils % 0.7 % (0.1-12.0); Hematocrit 25.5 % (37.0-47.0); Hemoglobin 8.6 g/dL (12.2-16.2); Lymphocytes # 0.6 K/mm3 (0.7-4.5); Lymphocytes % 16.7 % (10-50); Mean Corpuscular HGB Conc 33.9 g/dL (31.8-35.4); Mean Corpuscular Hemoglobin 35.8 pg (27.0-31.2); Mean Corpuscular Volume 105.5 fl (81-99); Mean Platelet Volume 8.4 fl (7.4-10.4); Monocytes # 0.3 K/mm3 (0.1-1.0); Monocytes % 7.4 % (1.7-9.3); Neutrophils # 2.5 K/mm3 (1.8-7.8); Neutrophils % 75.2 % (37.0-80.0); Platelet Count 80 K/mm3 (142-424); Red Blood Count 2.41 M/mm3 (4.20-5.40); Red Cell Distribution Width 16.7 % (11.5-17.5); White Blood Count 3.4 K/mm3 (4.8-10.8)
[2018-06-16 06:53] LABS: Anion Gap 12.2 mEq/L (5-15); Calcium 7.1 mg/dL (8.5-10.1); Potassium 4.2 mmoL/L (3.5-5.1)
--- NOTE | 2018-06-16 08:25 | Progress Note ---
Internal Medicine - PN: Subj *Date: 06/16/18 *Time: 08:21 Interval history: Patient states she wants to go home today. She ate some of her breakfast but states it was not very good. She rested off and on throughout the night. She denies any pain today. She states he does have a cough. Exam Vital signs and Labs for Last 24 Hours: Temp Pulse Resp BP Pulse Ox 97.7 F 83 16 145/81 H 93 L 06/16/18 08:00 06/16/18 08:00 06/16/18 08:00 06/16/18 08:00 06/16/18 08:00 Laboratory Results - last 24 hr 06/15/18 13:59: WBC 3.2 L D, RBC 2.52 L D, Hgb 9.2 L, Hct 26.9 L, MCV 106.7 H, MCH 36.5 H, MCHC 34.2, RDW 16.9, Plt Count 72 L D, MPV 7.7, Neut % (Auto) 79.0, Lymph % (Auto) 13.3, [place] % (Auto) 3.9, Eos % (Auto) 3.6, Baso % (Auto) 0.2, Neut # (Auto) 2.6, Lymph # (Auto) 0.4 L, [place] # (Auto) 0.1, Eos # (Auto) 0.1, Baso # (Auto) 0.0 06/15/18 13:59: Sodium 129 L, Potassium 4.2 D, Chloride 100, Carbon Dioxide 21, Anion Gap 12.2, BUN 19 H, Creatinine 0.92, Estimated Creat Clear 48, Estimated GFR 61, Est GFR ( Amer) 74 D, Glucose 150 H, Calcium 6.7 L 06/16/18 05:38: WBC 3.4 L, RBC 2.41 L, Hgb 8.6 L, Hct 25.5 L, MCV 105.5 H, MCH 35.8 H, MCHC 33.9, RDW 16.7, Plt Count 80 L, MPV 8.4, Neut % (Auto) 75.2, Lymph % (Auto) 16.7, [place] % (Auto) 7.4, Eos % (Auto) 0.7, Baso % (Auto) 0.1, Neut # (Auto) 2.5, Lymph # (Auto) 0.6 L, [place] # (Auto) 0.3, Eos # (Auto) 0.0, Baso # (Auto) 0.0 06/16/18 05:38: Sodium 129 L, Potassium 4.2, Chloride 100, Carbon Dioxide 21, Anion Gap 12.2, BUN 19 H, Creatinine 0.77, Estimated Creat Clear 48, Estimated GFR 75, Est GFR ( Amer) 91 D, Glucose 173 H, Calcium 7.1 L I & O for Last 24 hours: Intake & Output 06/13/18 06/14/18 06/15/18 06/16/18 11:59 11:59 11:59 11:59 Intake Total 3470 / 3470 3440 / 3440 2467 / 2467 Output Total 500 / 500 250 / 250 Balance 2970 / 2970 3190 / 3190 2467 / 2467 Weight 106 lb 117 lb 116 lb Microbiology Reports for the Last 24 Hours: Microbiology 06/13/18 19:35 Blood Blood Culture - Preliminary NO GROWTH AFTER 48 HOURS 06/13/18 19:35 Blood Blood Culture - Preliminary NO GROWTH AFTER 48 HOURS - Constitutional no acute distress - *Routine Respiratory Exam Present: rales (bibasilar), wheezes - *Routine Cardiovascular Exam Present: RRR - *Routine Abdominal Exam Present: soft, normoactive bowel sounds. Absent: tenderness - *Routine Extremities Exam Absent: cyanosis, clubbing, edema Assessment and Plan (1) Hypotension Current visit: Yes Status: Acute Category: Medical Code(s): I95.9 - Hypotension, unspecified (2) Aspiration pneumonia Current visit: Yes Status: Acute Qualifiers: Aspiration pneumonia type: unspecified Laterality: right Lung location: lower lobe of lung Qualified Code(s): J69.0 - Pneumonitis due to inhalation of food and vomit Category: Medical Code(s): J69.0 - Pneumonitis due to inhalation of food and vomit (3) Dehydration Current visit: Yes Status: Acute Category: Medical Code(s): E86.0 - Dehydration (4) Hypomagnesemia Current visit: Yes Status: Acute Category: Medical Code(s): E83.42 - Hypomagnesemia (5) Vomiting Current visit: Yes Status: Acute Qualifiers: Vomiting type: unspecified Vomiting Intractability: non-intractable Nausea presence: with nausea Qualified Code(s): R11.2 - Nausea with vomiting, unspecified Category: Medical Code(s): R11.10 - Vomiting, unspecified (6) Hyponatremia Current visit: No Status: Acute Category: Medical Code(s): E87.1 - Hypo- osmolality and hyponatremia (7) Low body mass index (BMI) Current visit: No Status: Acute Category: Medical (8) Seizure Current visit: No Status: Acute Category: Medical Code(s): R56.9 - Unspecified convulsions (9) Cardiomyopathy Current visit: No Status: Chronic Category: Medical Code(s): I42.9 - Cardiomyopathy, unspecified (10) Hypothyroidism Current visit: No Status: Chronic Category: Medical Code(s): E03.9 - Hypothyroidism, unspecified (11) Peripheral neuropathy Current visit: No Status: Chronic Category: Medical Code(s): G62.9 - Polyneuropathy, unspecified - Assessment and plan all Dx Assessment and Plan for all problems:: Hemoglobin is decreasing. It was 8.6 today. Will repeat an H&H tomorrow. Will continue antibiotics for pneumonia and discuss further care with Dr. urbina.
--- NOTE | 2018-06-17 06:37 | Consult Report ---
*Admission Date: 06/13/18 *Chief complaint: anemia *History of present illness: This is a 62-year-old female seen in consultation from the service of Dr. Pagan for evaluation regarding anemia and heme positive stools. She was recently admitted for further evaluation and management of seizure/possible alcohol withdrawal. She was found to be somewhat anemic. Her stool was also found to be heme positive. She states that she has noticed "some dark stool over the past few weeks or so". Please see forwarded copy of HPI from admission H&P below: Mr. Ramirez is a 62-year-old female with a history of alcoholism, hypertension, peripheral neuropathy, cardiomyopathy, biventricular ICD implant, and tobacco abuse who presented to [facility] after having 3-4 seizures at home. Her significant other who is caring for her and assisting her to the bathroom witnessed the seizures. He states that every time he tried to get her she would again begin to have another seizure. After the fourth seizure she requested to be taken to the emergency room. Patient states she has been sick for the last 2 to 3 days with nausea and vomiting. She denies having any diarrhea or fever or upper respiratory signs or symptoms. She has been able to retain water and continue to drink although much less. Her normal drink is vodka and water. In the emergency room with evaluation she received IV fluid bolus, clindamycin and Levaquin IV for pneumonia, and then admitted for further evaluation and tr eatment. During the night patient did develop hypotension and received additional IV fluid boluses after which her blood pressure did respond and is normal this a.m. This a.m. patient is requesting to go home. She states she did eat breakfast without nausea or vomiting. She denies diarrhea. She has voided without problems. She states the abscess in her left perineum is barely draining and on ly when trying to express fluid. Review of Systems - Constitutional Denies fever(s) - *Cardiovascular Denies chest pain - *Gastrointestinal Reports nausea, Denies abdominal pain - *Neurologic Reports seizure-like activity, Reports headache(s), Reports weakness, Denies behavioral changes, Denies confusion [facility] History Medical History: Reports:: Anxiety, Cancer (MOUTH CANCER), Cardiomyopathy, Chronic Obstructive Pulmonary Disease (COPD), Depression, Hypertension, Internal Pacemaker Denies:: Diabetes Mellitus Type 1, Diabetes Mellitus Type 2, MRSA *Have you ever received a pneumonia vaccine?: No *Have you received a flu vaccine this season?: Yes Other Medical History: Reports: Anemia, Hypothyroidism, Thyroid Disease Laterality Cases: Bilateral: Cataract, Myringotomy (Ear Tubes) Other Surgeries: Yes: Hysterectomy-Total, Pacemaker Amputation: No Fractures: No - *Social History Educational Level: Attended High School Smoking Status: Current every day smoker Tobacco Type: cigarettes # Packs/Day (cigarettes): 1 Alcohol Intake: current Alcohol Intake Frequency:: 3 or more drinks per day *Occupational Status:: disabled Housing: house *Travel in the last 8 weeks: None - Psychiatric History Expresses thoughts of harming self/others: None Suicide Plan Description: No Plan Pschychiatric History:: Reports:: Anxiety, Depression Family Hx:: Cancer, Hyperlipidemia, Hypertension Meds Home Medications Medication Instructions Recorded Confirmed Type Carvedilol [Carvedilol 12.5mg Tab] 12.5 mg PO BID 02/18/17 06/13/18 History Spironolactone 25 mg PO DAILY 04/27/18 06/13/18 History Levothyroxine Sodium [Synthroid 150 mcg PO DAILY 06/13/18 06/14/18 History 150mcg (0.15mg) tablet] Albuterol Sulfate [Albuterol HFA 2 puffs IH QIDP PRN 06/14/18 06/14/18 History Inhaler] Cholecalciferol (Vitamin D3) 2,000 units PO DAILY 06/14/18 06/14/18 History [Vitamin D3] Estradiol 1 mg PO DAILY 06/14/18 06/14/18 History Ferrous Sulfate 325 mg PO BID 06/14/18 06/14/18 History Gabapentin [Gabapentin 100mg Cap] 100 mg PO TID 06/14/18 06/14/18 History Oxybutynin Chloride [Ditropan 5mg 5 mg PO TID 06/14/18 06/14/18 History tablet] Raloxifene HCl 60 mg PO DAILY 06/14/18 06/14/18 History Sertraline HCl [Zoloft] 100 mg PO BID 06/14/18 06/14/18 History Sucralfate [Carafate 1gm Tab] 2 gm PO BID 06/14/18 06/14/18 History Allergies Allergy/AdvReac Type Severity Reaction Status Date / Time lisinopril [LISINOPRIL] Allergy Severe S-SWELLS-OR Verified 04/27/18 01:05 AL/THROAT Penicillins [PENICILLINS] Allergy Severe S-SWELLS-OR Verified 04/27/18 01:05 AL/THROAT Sulfa (Sulfonamide Allergy Severe S-SKIN Verified 04/27/18 01:05 Antibiotics) ERUPTIONS [SULFA (SULFONAMIDE ANTIBIOTICS)] sulfamethoxazole Allergy Severe S-SKIN Verified 04/27/18 01:05 [From BACTRIM] ERUPTIONS trimethoprim [From BACTRIM] Allergy Severe S-SKIN Verified 04/27/18 01:05 ERUPTIONS latex [LATEX] Allergy Intermediate I-RASH Verified 04/27/18 01:05 metronidazole AdvReac Severe Gastrointestinal Verified 04/29/18 10:12 Upset BANANAS (FOOD) Allergy Severe THROAT Uncoded 01/27/17 15:12 SWELLS Exam Vital signs and Labs for Last 24 Hours: Temp Pulse Resp BP Pulse Ox 98.0 F 86 15 121/79 93 L 06/17/18 00:00 06/17/18 00:00 06/17/18 00:00 06/17/18 00:00 06/17/18 00:00 Laboratory Results - last 24 hr 06/16/18 05:38: WBC 3.4 L, RBC 2.41 L, Hgb 8.6 L, Hct 25.5 L, MCV 105.5 H, MCH 35.8 H, MCHC 33.9, RDW 16.7, Plt Count 80 L, MPV 8.4, Neut % (Auto) 75.2, Lymph % (Auto) 16.7, [place] % (Auto) 7.4, Eos % (Auto) 0.7, Baso % (Auto) 0.1, Neut # (Auto) 2.5, Lymph # (Auto) 0.6 L, [place] # (Auto) 0.3, Eos # (Auto) 0.0, Baso # (Auto) 0.0 06/16/18 05:38: Sodium 129 L, Potassium 4.2, Chloride 100, Carbon Dioxide 21, Anion Gap 12.2, BUN 19 H, Creatinine 0.77, Estimated Creat Clear 48, Estimated GFR 75, Est GFR ( Amer) 91 D, Glucose 173 H, Calcium 7.1 L 06/16/18 10:15: Blood Type Confirm A Negative 06/16/18 11:32: Blood Type A Negative, Antibody Screen Negative, Crossmatch (AHG) See Detail 06/16/18 15:17: Stool Occult Blood Positive A 06/16/18 15:17: Stl Aeromonas (PCR) Not detected, Stl C. cayetanensis PCR Not detected, Stool Rotavirus (PCR) Not detected, Stl Adenov F 40/41 PCR Not detected, Stool Astrovirus (PCR) Not detected, Stool Campylobacter PCR Not detected, Stl C.difficile Tox PCR Not detected, Stool Cryptosporidium PCR Not detected, Stl E.coli Shiga Tox PCR Not detected, Stool E coli O157 PCR Not detected, Stl Enterotoxigenic E PCR Not detected, Stool EPEC (PCR) Not detected, Stool EAEC (PCR) Not detected, Stl E. histolytica PCR Not detected, Stool Giardia Lamblia PCR Not detected, Stool Salmonella PCR Not detected, Stool Sapovirus (PCR) Not detected, Stl P. shigelloides PCR Not detected, Stl Shigella/EIEC PCR Not detected, St Y.enterocolitica PCR Not detected, Stool Vib clarke (PCR) Not detected, Stl Vibrio cholerae PCR Not detected, Stl Norovirus GI/GII PCR Not detected I & O for Last 24 hours: Intake & Output 06/14/18 06/15/18 06/16/18 06/17/18 11:59 11:59 11:59 11:59 Intake Total 3470 / 3470 3440 / 3440 2467 / 2467 4419 / 4419 Output Total 500 / 500 250 / 250 Balance 2970 / 2970 3190 / 3190 2467 / 2467 4419 / 4419 Weight 106 lb 117 lb 116 lb - Constitutional no acute distress - *Routine Respiratory Exam Absent: respiratory distress - *Routine Cardiovascular Exam Present: RRR - *Routine Abdominal Exam Present: soft Results - Labs 06/16/18 05:38 06/16/18 05:38 Laboratory Results - last 24 hr 06/16/18 05:38: WBC 3.4 L, RBC 2.41 L, Hgb 8.6 L, Hct 25.5 L, MCV 105.5 H, MCH 35.8 H, MCHC 33.9, RDW 16.7, Plt Count 80 L, MPV 8.4, Neut % (Auto) 75.2, Lymph % (Auto) 16.7, [place] % (Auto) 7.4, Eos % (Auto) 0.7, Baso % (Auto) 0.1, Neut # (Auto) 2.5, Lymph # (Auto) 0.6 L, [place] # (Auto) 0.3, Eos # (Auto) 0.0, Baso # (Auto) 0.0 06/16/18 05:38: Sodium 129 L, Potassium 4.2, Chloride 100, Carbon Dioxide 21, Anion Gap 12.2, BUN 19 H, Creatinine 0.77, Estimated Creat Clear 48, Estimated GFR 75, Est GFR ( Amer) 91 D, Glucose 173 H, Calcium 7.1 L 06/16/18 10:15: Blood Type Confirm A Negative 06/16/18 11:32: Blood Type A Negative, Antibody Screen Negative, Crossmatch (AHG) See Detail 06/16/18 15:17: Stool Occult Blood Positive A 06/16/18 15:17: Stl Aeromonas (PCR) Not detected, Stl C. cayetanensis PCR Not detected, Stool Rotavirus (PCR) Not detected, Stl Adenov F 40/41 PCR Not detected, Stool Astrovirus (PCR) Not detected, Stool Campylobacter PCR Not detected, Stl C.difficile Tox PCR Not detected, Stool Cryptosporidium PCR Not detected, Stl E.coli Shiga Tox PCR Not detected, Stool E coli O157 PCR Not detected, Stl Enterotoxigenic E PCR Not detected, Stool EPEC (PCR) Not detected, Stool EAEC (PCR) Not detected, Stl E. histolytica PCR Not detected, Stool Giardia Lamblia PCR Not detected, Stool Salmonella PCR Not detected, Stool Sapovirus (PCR) Not detected, Stl P. shigelloides PCR Not detected, Stl Shigella/EIEC PCR Not detected, St Y.enterocolitica PCR Not detected, Stool Vibrio (PCR) Not detected, Stl Vibrio cholerae PCR Not detected, Stl Norovirus GI/GII PCR Not detected Assessment and Plan (1) Hypotension Current visit: Yes Status: Acute Category: Medical Code(s): I95.9 - Hypotension, unspecified (2) Aspiration pneumonia Current visit: Yes Status: Acute Qualifiers: Aspiration pneumonia type: unspecified Laterality: right Lung location: lower lobe of lung Qualified Code(s): J69.0 - Pneumonitis due to inhalation of food and vomit Category: Medical Code(s): J69.0 - Pneumonitis due to inhalation of food and vomit (3) Dehydration Current visit: Yes Status: Acute Category: Medical Code(s): E86.0 - Dehydration (4) Hypomagnesemia Current visit: Yes Status: Acute Category: Medical Code(s): E83.42 - Hypomagnesemia (5) Vomiting Current visit: Yes Status: Acute Qualifiers: Vomiting type: unspecified Vomiting Intractability: non-intractable Nausea presence: with nausea Qualified Code(s): R11.2 - Nausea with vomiting, unspecified Category: Medical Code(s): R11.10 - Vomiting, unspecified (6) Hyponatremia Current visit: No Status: Acute Category: Medical Code(s): E87.1 - Hypo- osmolality and hyponatremia (7) Low body mass index (BMI) Current visit: No Status: Acute Category: Medical (8) Seizure Current visit: No Status: Acute Category: Medical Code(s): R56.9 - Unspecified convulsions (9) Cardiomyopathy Current visit: No Status: Chronic Category: Medical Code(s): I42.9 - Cardiomyopathy, unspecified (10) Hypothyroidism Current visit: No Status: Chronic Category: Medical Code(s): E03.9 - Hypothyroidism, unspecified (11) Peripheral neuropathy Current visit: No Status: Chronic Category: Medical Code(s): G62.9 - Polyneuropathy, unspecified (12) Anemia Current visit: Yes Status: Acute Category: Medical Code(s): D64.9 - Anemia, unspecified EGD this AM I have discussed the risks and benefits including, but not limited to: Bleeding Infection Damage to surrounding tissue Inherent risks of sedation The patient agrees to proceed. Colonoscopy in the very near future if EGD negative. Otherwise...treatment of EGD findings and colonoscopy in the near future. (13) Heme positive stool Current visit: Yes Status: Acute Category: Medical Code(s): R19.5 - Other fecal abnormalities
[2018-06-17 06:57] LABS: Albumin Level 2.2 gm/dL (3.4-5.0); Albumin/Globulin Ratio 0.6 (1.1-1.8); Bilirubin,Total 0.3 mg/dL (0.2-1.0); Calcium 7.1 mg/dL (8.5-10.1); Globulin 3.5 gm/dl (1.3-3.2); Total Protein,Serum 5.7 gm/dL (6.4-8.2)
[2018-06-17 07:01] LABS: Basophils % 0.2 % (0.1-2.0); Eosinophils # 0.1 K/mm3 (0.0-0.4); Eosinophils % 1.7 % (0.1-12.0); Hematocrit 25.3 % (37.0-47.0); Hemoglobin 8.6 g/dL (12.2-16.2); Lymphocytes # 1.6 K/mm3 (0.7-4.5); Lymphocytes % 31.9 % (10-50); Mean Corpuscular Volume 105.8 fl (81-99); Mean Platelet Volume 7.9 fl (7.4-10.4); Monocytes # 0.3 K/mm3 (0.1-1.0); Monocytes % 6.1 % (1.7-9.3); Neutrophils % 60.1 % (37.0-80.0); Platelet Count 89 K/mm3 (142-424); Red Cell Distribution Width 17.3 % (11.5-17.5); White Blood Count 4.9 K/mm3 (4.8-10.8)
--- NOTE | 2018-06-17 08:18 | Progress Note ---
Internal Medicine - PN: Subj *Date: 06/17/18 *Time: 08:17 Exam Vital signs and Labs for Last 24 Hours: Temp Pulse Resp BP Pulse Ox 98.0 F 79 18 118/77 94 L 06/17/18 08:00 06/17/18 08:00 06/17/18 08:00 06/17/18 08:00 06/17/18 08:00 Laboratory Results - last 24 hr 06/16/18 10:15: Blood Type Confirm A Negative 06/16/18 11:32: Blood Type A Negative, Antibody Screen Negative, Crossmatch (AHG) See Detail 06/16/18 15:17: Stool Occult Blood Positive A 06/16/18 15:17: Stl Aeromonas (PCR) Not detected, Stl C. cayetanensis PCR Not detected, Stool Rotavirus (PCR) Not detected, Stl Adenov F 40/41 PCR Not detected, Stool Astrovirus (PCR) Not detected, Stool Campylobacter PCR Not detected, Stl C.difficile Tox PCR Not detected, Stool Cryptosporidium PCR Not detected, Stl E.coli Shiga Tox PCR Not detected, Stool E coli O157 PCR Not detected, Stl Enterotoxigenic E PCR Not detected, Stool EPEC (PCR) Not detected, Stool EAEC (PCR) Not detected, Stl E. histolytica PCR Not detected, Stool Giardia Lamblia PCR Not detected, Stool Salmonella PCR Not detected, Stool Sapovirus (PCR) Not detected, Stl P. shigelloides PCR Not detected, Stl Shigella/EIEC PCR Not detected, St Y.enterocolitica PCR Not detected, Stool Vibrio (PCR) Not detected, Stl Vibrio cholerae PCR Not detected, Stl Norovirus GI/GII PCR Not detected 06/17/18 06:03: WBC 4.9 D, RBC 2.40 L, Hgb 8.6 L, Hct 25.3 L, MCV 105.8 H, MCH 36.0 H, MCHC 34.0, RDW 17.3, Plt Count 89 L, MPV 7.9, Neut % (Auto) 60.1, Lymph % (Auto) 31.9, [place] % (Auto) 6.1, Eos % (Auto) 1.7, Baso % (Auto) 0.2, Neut # (Auto) 3.0, Lymph # (Auto) 1.6, [place] # (Auto) 0.3, Eos # (Auto) 0.1, Baso # (Auto) 0.0 06/17/18 06:03: Sodium 135 L, Potassium 4.0, Chloride 105, Carbon Dioxide 23, Anion Gap 11.0, BUN 14 D, Creatinine 0.58 D, Estimated Creat Clear 47, Estimated GFR 105, Est GFR ( Amer) 127 D, Glucose 83, Calcium 7.1 L, Total Bilirubin 0.3, AST 21, ALT 23, Alkaline Phosphatase 40 L, Total Protein 5.7 L, Albumin 2.2 L, Globulin 3.5 H, Albumin/Globulin Ratio 0.6 L I & O for Last 24 hours: Intake & Output 06/14/18 06/15/18 06/16/18 06/17/18 23:59 23:59 23:59 23:59 Intake Total 4496 / 4496 1414 / 1414 4131 / 4131 2755 / 2755 Output Total 450 / 450 400 / 400 Balance 4046 / 4046 1414 / 1414 4131 / 4131 2355 / 2355 Weight 48.081 kg 53.07 kg 52.617 kg 52.305 kg Microbiology Reports for the Last 24 Hours: Microbiology 06/13/18 19:35 Blood Blood Culture - Preliminary Assessment and Plan (1) Hypotension Current visit: Yes Status: Acute Category: Medical Code(s): I95.9 - Hypotension, unspecified (2) Aspiration pneumonia Current visit: Yes Status: Acute Qualifiers: Aspiration pneumonia type: unspecified Laterality: right Lung location: lower lobe of lung Qualified Code(s): J69.0 - Pneumonitis due to inhalation of food and vomit Category: Medical Code(s): J69.0 - Pneumonitis due to inhalation of food and vomit (3) Dehydration Current visit: Yes Status: Acute Category: Medical Code(s): E86.0 - Dehydration (4) Hypomagnesemia Current visit: Yes Status: Acute Category: Medical Code(s): E83.42 - Hypomagnesemia (5) Vomiting Current visit: Yes Status: Acute Qualifiers: Vomiting type: unspecified Vomiting Intractability: non-intractable Nausea presence: with nausea Qualified Code(s): R11.2 - Nausea with vomiting, unspecified Category: Medical Code(s): R11.10 - Vomiting, unspecified (6) Hyponatremia Current visit: No Status: Acute Category: Medical Code(s): E87.1 - Hypo- osmolality and hyponatremia (7) Low body mass index (BMI) Current visit: No Status: Acute Category: Medical (8) Seizure Current visit: No Status: Acute Category: Medical Code(s): R56.9 - Unspecified convulsions (9) Cardiomyopathy Current visit: No Status: Chronic Category: Medical Code(s): I42.9 - Cardiomyopathy, unspecified (10) Hypothyroidism Current visit: No Status: Chronic Category: Medical Code(s): E03.9 - Hypothyroidism, unspecified (11) Peripheral neuropathy Current visit: No Status: Chronic Category: Medical Code(s): G62.9 - Polyneuropathy, unspecified (12) Anemia Current visit: Yes Status: Acute Category: Medical Code(s): D64.9 - Anemia, unspecified (13) Heme positive stool Current visit: Yes Status: Acute Category: Medical Code(s): R19.5 - Other fecal abnormalities The patient's infection will respond to the chosen ABx?: Yes Is the patient receiving the right drug, dose, and route?: Yes Could a more targeted ABx be ordered?: No (WBC WNL, AFEBRILE)
--- NOTE | 2018-06-17 08:35 | Progress Note ---
Internal Medicine - PN: Frieda *Date: 06/17/18 *Time: 08:33 Interval history: Patient states she is tired this morning. She says she did sleep throughout the night. She is having some epigastric discomfort. She is n.p.o. today for an EGD. Exam Vital signs and Labs for Last 24 Hours: Temp Pulse Resp BP Pulse Ox 98.0 F 79 18 118/77 94 L 06/17/18 08:00 06/17/18 08:00 06/17/18 08:00 06/17/18 08:00 06/17/18 08:00 Laboratory Results - last 24 hr 06/16/18 10:15: Blood Type Confirm A Negative 06/16/18 11:32: Blood Type A Negative, Antibody Screen Negative, Crossmatch (AHG) See Detail 06/16/18 15:17: Stool Occult Blood Positive A 06/16/18 15:17: Stl Aeromonas (PCR) Not detected, Stl C. cayetanensis PCR Not detected, Stool Rotavirus (PCR) Not detected, Stl Adenov F 40/41 PCR Not detected, Stool Astrovirus (PCR) Not detected, Stool Campylobacter PCR Not detected, Stl C.difficile Tox PCR Not detected, Stool Cryptosporidium PCR Not detected, Stl E.coli Shiga Tox PCR Not detected, Stool E coli O157 PCR Not detected, Stl Enterotoxigenic E PCR Not detected, Stool EPEC (PCR) Not detected, Stool EAEC (PCR) Not detected, Stl E. histolytica PCR Not detected, Stool Giardia Lamblia PCR Not detected, Stool Salmonella PCR Not detected, Stool Sapovirus (PCR) Not detected, Stl P. shigelloides PCR Not detected, Stl Shigella/EIEC PCR Not detected, St Y.enterocolitica PCR Not detected, Stool Vibrio (PCR) Not detected, Stl Vibrio cholerae PCR Not detected, Stl Norovirus GI/GII PCR Not detected 06/17/18 06:03: WBC 4.9 D, RBC 2.40 L, Hgb 8.6 L, Hct 25.3 L, MCV 105.8 H, MCH 36.0 H, MCHC 34.0, RDW 17.3, Plt Count 89 L, MPV 7.9, Neut % (Auto) 60.1, Lymph % (Auto) 31.9, [place] % (Auto) 6.1, Eos % (Auto) 1.7, Baso % (Auto) 0.2, Neut # (Auto) 3.0, Lymph # (Auto) 1.6, [place] # (Auto) 0.3, Eos # (Auto) 0.1, Baso # (Auto) 0.0 06/17/18 06:03: Sodium 135 L, Potassium 4.0, Chloride 105, Carbon Dioxide 23, Anion Gap 11.0, BUN 14 D, Creatinine 0.58 D, Estimated Creat Clear 47, Estimated GFR 105, Est GFR ( Amer) 127 D, Glucose 83, Calcium 7.1 L, Total Bilirubin 0.3, AST 21, ALT 23, Alkaline Phosphatase 40 L, Total Protein 5.7 L, Albumin 2.2 L, Globulin 3.5 H, Albumin/Globulin Ratio 0.6 L I & O for Last 24 hours: Intake & Output 06/14/18 06/15/18 06/16/18 06/17/18 11:59 11:59 11:59 11:59 Intake Total 3470 / 3470 3440 / 3440 2467 / 2467 4419 / 4419 Output Total 500 / 500 250 / 250 400 / 400 Balance 2970 / 2970 3190 / 3190 2467 / 2467 4019 / 4019 Weight 106 lb 117 lb 116 lb 115 lb 5 oz Microbiology Reports for the Last 24 Hours: Microbiology 06/13/18 19:35 Blood Blood Culture - Preliminary - Constitutional no acute distress - *Routine Respiratory Exam Present: rhonchi, wheezes - *Routine Cardiovascular Exam Present: RRR - *Routine Abdominal Exam Present: soft, normoactive bowel sounds, tenderness (epigastric area) - *Routine Extremities Exam Absent: cyanosis, clubbing, edema Assessment and Plan (1) Hypotension Current visit: Yes Status: Acute Category: Medical Code(s): I95.9 - Hypotension, unspecified (2) Aspiration pneumonia Current visit: Yes Status: Acute Qualifiers: Aspiration pneumonia type: unspecified Laterality: right Lung location: lower lobe of lung Qualified Code(s): J69.0 - Pneumonitis due to inhalation of food and vomit Category: Medical Code(s): J69.0 - Pneumonitis due to inhalation of food and vomit (3) Dehydration Current visit: Yes Status: Acute Category: Medical Code(s): E86.0 - Dehydration (4) Hypomagnesemia Current visit: Yes Status: Acute Category: Medical Code(s): E83.42 - Hypomagnesemia (5) Vomiting Current visit: Yes Status: Acute Qualifiers: Vomiting type: unspecified Vomiting Intractability: non-intractable Nausea presence: with nausea Qualified Code(s): R11.2 - Nausea with vomiting, unspecified Category: Medical Code(s): R11.10 - Vomiting, unspecified (6) Hyponatremia Current visit: No Status: Acute Category: Medical Code(s): E87.1 - Hypo- osmolality and hyponatremia (7) Low body mass index (BMI) Current visit: No Status: Acute Category: Medical (8) Seizure Current visit: No Status: Acute Category: Medical Code(s): R56.9 - Unspecified convulsions (9) Cardiomyopathy Current visit: No Status: Chronic Category: Medical Code(s): I42.9 - Cardiomyopathy, unspecified (10) Hypothyroidism Current visit: No Status: Chronic Category: Medical Code(s): E03.9 - Hypothyroidism, unspecified (11) Peripheral neuropathy Current visit: No Status: Chronic Category: Medical Code(s): G62.9 - Polyneuropathy, unspecified (12) Anemia Current visit: Yes Status: Acute Category: Medical Code(s): D64.9 - Anemia, unspecified (13) Heme positive stool Current visit: Yes Status: Acute Category: Medical Code(s): R19.5 - Other fecal abnormalities - Assessment and plan all Dx Assessment and Plan for all problems:: Preliminary blood culture is positive for gram-positive bacilli. ID and sensitivities are still pending. Patient is n.p.o. this morning for an EGD by Dr. Escudero. Her H&H is low but stable. Stool was positive for blood.
--- NOTE | 2018-06-17 09:30 | Progress Note ---
[facility] Anesthesia Checklist - Patient Identification Patient Identification: Arm Band, Verbal (Name & ) - Structural Data Admitted From: Inpatient Planned Operative Procedure/s: EGD Consent for Planned Operative Procedure(s) Verified: Yes Verified Documents: Surgical Consent, History and Physical - NPO Status Verified Time NPO: 00:00 - Chart Verification Results Verified: CBC, BMP - Additional verifications Anesthesia Reactions: No - Airway Assessment C-Spine Mobility Assessed: Yes (Limited Neck ROM) TMJ Mobility Assessed: Yes Dentition: Edentulous - Neurological Assessment Level of Consciousness: Awake Hx Seizures: Yes Numbness or tingling in extremities: No - Anesthesia Plan Anesthesia Risk discussed: Yes Anesthesia Plan: Verified ASA Class: IV Anesthesia Type: MAC [facility] History I have reviewed the patient's past medical history: Yes Medical History: Reports:: Anxiety, Cancer (MOUTH CANCER), Cardiomyopathy, Chronic Obstructive Pulmonary Disease (COPD), Depression, Hypertension, Internal Pacemaker Denies:: Diabetes Mellitus Type 1, Diabetes Mellitus Type 2, MRSA *Have you ever received a pneumonia vaccine?: No *Have you received a flu vaccine this season?: Yes Other Medical History: Reports: Anemia, Hypothyroidism Comment:: Peripheral neuropathy, Home 02 Laterality Cases: Bilateral: Cataract, Myringotomy (Ear Tubes) Other Surgeries: Yes: Hysterectomy-Total, Pacemaker Amputation: No Fractures: No - *Social History Educational Level: Attended High School Smoking Status: Current every day smoker Tobacco Type: cigarettes # Packs/Day (cigarettes): 1 Alcohol Intake: current Alcohol Intake Frequency:: 3 or more drinks per day *Occupational Status:: disabled Housing: house *Travel in the last 8 weeks: None - Psychiatric History Expresses thoughts of harming self/others: None Suicide Plan Description: No Plan Pschychiatric History:: Reports:: Anxiety, Depression Family Hx:: Cancer, Hyperlipidemia, Hypertension
--- NOTE | 2018-06-17 09:57 | Procedure Note ---
- Procedure: Date: 06/17/18 Procedure Performed:: Esophagogastroduodenoscopy with biopsy Indications:: Anemia Hemoccult positive stool Performing Provider:: Denis Escudero MD Referring Provider:: Dr. Pagan Sedation:: Monitored anesthesia care Procedure:: After informed consent was obtained the patient was taken to the endoscopy suite. Sedation ensued after the patient was transferred to the left lateral decubitus position. Pulse, blood pressure, and oxygen saturation were monitored throughout the procedure. The endoscope was advanced beyond the duodenal bulb. Retroflexion within the gastric lumen was accomplished. The gastroscope was carefully removed and the patient was transferred to recovery in stable condition. Please see "findings" and "specimens" below for detail. Findings:: Gastroesophageal junction at 40 cm Moderate to severe patchy gastritis with streaking gastritis proximally Shallow non-bleeding antral ulcer Shallow non-bleeding duodenal bulb ulcer No definitive sign of active or recent hemorrhage Specimens:: Shallow antral ulcer Recommendations:: Follow-up pending pathology Begin Protonix/Carafate Repeat EGD in 6-8 weeks Colonoscopy at time a repeat EGD Complications:: No immediate Estimated blood obtained (mL): 1
--- NOTE | 2018-06-18 09:02 | Progress Note ---
Internal Medicine - PN: Subj *Date: 06/18/18 *Time: 09:05 Interval history: Pt is sitting up in the chair watching tv. She tolerated her breakfast well and denies nausea at this time. She has been up to the bathroom with assistance. She denies any pain or SOB and is eager to go home today. EGD yesterday showed gastritis with two shallow, non-bleeding ulcers without evidence of hemorrhage. She was started on protonix and carafate with recommendation for repeat EGD with colonoscopy in 6-8 weeks. Exam Vital signs and Labs for Last 24 Hours: Temp Pulse Resp BP Pulse Ox 97.5 F L 86 20 140/92 H 95 06/18/18 08:00 06/18/18 08:00 06/18/18 08:00 06/18/18 08:00 06/18/18 08:00 Laboratory Results - last 24 hr 06/16/18 09:30: Vitamin B12 416 I & O for Last 24 hours: Intake & Output 06/15/18 06/16/18 06/17/18 06/18/18 11:59 11:59 11:59 11:59 Intake Total 3440 / 3440 2467 / 2467 5089 / 5089 1868 / 1868 Output Total 250 / 250 400 / 400 Balance 3190 / 3190 2467 / 2467 4689 / 4689 1868 / 1868 Weight 117 lb 116 lb 115 lb 5 oz 117 lb Microbiology Reports for the Last 24 Hours: Microbiology 06/13/18 19:35 Blood Blood Culture - Preliminary - Constitutional no acute distress - *Routine HEENT Exam Head: Present: normocephalic ENT: Present: mucous membranes moist - *Routine Respiratory Exam Comments: good air movement with few scattered rhonchi - *Routine Cardiovascular Exam Present: RRR - *Routine Abdominal Exam Present: soft, normoactive bowel sounds. Absent: tenderness, distended, rebound, guarding, firm, rigid - *Routine Extremities Exam Present: full ROM, pulses intact. Absent: edema, calf tenderness Assessment and Plan (1) Hypotension Current visit: Yes Status: Acute Category: Medical Code(s): I95.9 - Hypotension, unspecified (2) Aspiration pneumonia Current visit: Yes Status: Acute Qualifiers: Aspiration pneumonia type: unspecified Laterality: right Lung location: lower lobe of lung Qualified Code(s): J69.0 - Pneumonitis due to inhalation of food and vomit Category: Medical Code(s): J69.0 - Pneumonitis due to inhalation of food and vomit (3) Dehydration Current visit: Yes Status: Acute Category: Medical Code(s): E86.0 - Dehydration (4) Hypomagnesemia Current visit: Yes Status: Acute Category: Medical Code(s): E83.42 - Hypomagnesemia (5) Vomiting Current visit: Yes Status: Acute Qualifiers: Vomiting type: unspecified Vomiting Intractability: non-intractable Nausea presence: with nausea Qualified Code(s): R11.2 - Nausea with vomiting, unspecified Category: Medical Code(s): R11.10 - Vomiting, unspecified (6) Hyponatremia Current visit: No Status: Acute Category: Medical Code(s): E87.1 - Hypo- osmolality and hyponatremia (7) Low body mass index (BMI) Current visit: No Status: Acute Category: Medical (8) Seizure Current visit: No Status: Acute Category: Medical Code(s): R56.9 - Unspecified convulsions (9) Cardiomyopathy Current visit: No Status: Chronic Category: Medical Code(s): I42.9 - Cardiomyopathy, unspecified (10) Hypothyroidism Current visit: No Status: Chronic Category: Medical Code(s): E03.9 - Hypothyroidism, unspecified (11) Peripheral neuropathy Current visit: No Status: Chronic Category: Medical Code(s): G62.9 - Polyneuropathy, unspecified (12) Anemia Current visit: Yes Status: Acute Category: Medical Code(s): D64.9 - Anemia, unspecified (13) Heme positive stool Current visit: Yes Status: Acute Category: Medical Code(s): R19.5 - Other fecal abnormalities - Assessment and plan all Dx Assessment and Plan for all problems:: Pt is feeling better. Further per Dr. Pagan.
[2018-06-18 09:39] LABS: Basophils % 0.4 % (0.1-2.0); Eosinophils # 0.2 K/mm3 (0.0-0.4); Eosinophils % 2.9 % (0.1-12.0); Hematocrit 30.9 % (37.0-47.0); Hemoglobin 10.2 g/dL (12.2-16.2); Lymphocytes # 1.8 K/mm3 (0.7-4.5); Lymphocytes % 26.6 % (10-50); Mean Corpuscular HGB Conc 32.9 g/dL (31.8-35.4); Mean Corpuscular Hemoglobin 35.7 pg (27.0-31.2); Mean Corpuscular Volume 108.5 fl (81-99); Mean Platelet Volume 7.6 fl (7.4-10.4); Monocytes # 0.4 K/mm3 (0.1-1.0); Monocytes % 5.8 % (1.7-9.3); Neutrophils # 4.4 K/mm3 (1.8-7.8); Neutrophils % 64.2 % (37.0-80.0); Platelet Count 141 K/mm3 (142-424); Red Blood Count 2.85 M/mm3 (4.20-5.40); Red Cell Distribution Width 17.3 % (11.5-17.5); White Blood Count 6.8 K/mm3 (4.8-10.8)
[2018-06-18 10:15] LABS: Anion Gap 13.8 mEq/L (5-15); Potassium 3.8 mmoL/L (3.5-5.1)
--- NOTE | 2018-06-18 21:30 | Discharge Summary ---
General - General Admission date:: 06/13/18 Discharge date: 06/18/18 HPI HPI: Mr. Ramirez is a 62-year-old female with a history of alcoholism, hypertension, peripheral neuropathy, cardiomyopathy, biventricular ICD implant, and tobacco abuse who presented to [facility] after having 3-4 seizures at home. Her significant other who is caring for her and assisting her to the bathroom witnessed the seizures. He states that every time he tried to get her she would again begin to have another seizure. After the fourth seizure she requested to be taken to the emergency room. Patient states she has been sick for the last 2 to 3 days with nausea and vomiting. She denies having any diarrhea or fever or upper respiratory signs or symptoms. She has been able to retain water and continue to drink although much less. Her normal drink is vodka and water. In the emergency room with evaluation she received IV fluid bolus, clindamycin and Levaquin IV for pneumonia, and then admitted for further evaluation and treatment. During the night patient did develop hypotension and received additional IV fluid boluses after which her blood pressure did respond and is normal this a.m. This a.m. patient is requesting to go home. She states she did eat breakfast without nausea or vomiting. She denies diarrhea. She has voided without problems. She states the abscess in her left perineum is barely draining and only when trying to express fluid. Hospital Course Hospital Course: The patient's sodium was low and her renal function was elevated. Her lactic acid was also elevated. She had a chest x-ray which showed COPD and a right middle lobe infiltrate. There was also a small lucency noted involving the shaft of the proximal aspect of the right humeral shaft. A small lytic lesion w as not excluded in the patient with her history of tongue cancer. Radiology felt she would need dedicated films of the humerus. The patient had a head CT which showed nothing acute. She was continued on IV fluids and IV antibiotics. Her potassium was low, therefore potassium supplementation was added. Some of her home medications were restarted. Her blood pressure continued to remain low and Dr. Urbina felt she might have some adrenal insufficiency, therefore he started her on steroids. Patient's hemoglobin began decreasing, therefore surgery was consulted. She was seen by Dr. Escudero and a stool for blood was positive. A diarrhea panel was negative. He recommended an EGD. This was performed on 06/13/2018 and the patient had moderate to severe patchy gastritis, a shallow nonbleeding antral ulcer, a shallow nonbleeding duodenal bulb ulcer, and no active sign of hemorrhage. Dr. Escudero did take biopsies and recommended the patient be started on Protonix and Carafate and have a repeat EGD in 6 to 8 weeks as well as a colonoscopy. She was able to tolerate her breakfast after her EGD and denied any nausea. She was able to get up and about in her room. She was started on Protonix and Carafate she was stable to be discharged home and will follow-up with Dr. urbina and Dr. Escudero in the office. Of note, patient's preliminary blood culture was positive for gram-positive bacilli. Objective Vital signs: Temp Pulse Resp BP Pulse Ox 97.5 F L 81 20 138/86 94 L 06/18/18 11:40 06/18/18 11:40 06/18/18 11:40 06/18/18 11:40 06/18/18 11:40 Narrative: - Constitutional no acute distress, thin - *Routine HEENT Exam Head: Present: normocephalic, atraumatic Eye: Present: PERRL. Absent: conjunctival icterus, scleral injection ENT: Present: mucous membranes moist, oropharynx clear - *Routine Neck Exam Present: supple, thyromegaly. Absent: carotid bruit, lymphadenopathy - *Routine Respiratory Exam Present: CTA bilaterally - *Routine Cardiovascular Exam Present: RRR - *Routine Abdominal Exam Present: soft, normoactive bowel sounds. Absent: tenderness, distended - *Routine Extremities Exam Present: pulses intact. Absent: edema, calf tenderness - *Routine Neurological Exam Present: alert, oriented X3 Results Labs on day of discharge: Labs from last 24 hours 06/18/18 06/18/18 06/16/18 09:25 09:25 09:30 WBC 6.8 D RBC 2.85 L Hgb 10.2 L Hct 30.9 L MCV 108.5 H MCH 35.7 H MCHC 32.9 RDW 17.3 Plt Count 141 L D MPV 7.6 Neut % (Auto) 64.2 Lymph % (Auto) 26.6 [place] % (Auto) 5.8 Eos % (Auto) 2.9 Baso % (Auto) 0.4 Neut # (Auto) 4.4 Lymph # (Auto) 1.8 [place] # (Auto) 0.4 Eos # (Auto) 0.2 Baso # (Auto) 0.0 Sodium 136 Potassium 3.8 Chloride 102 Carbon Dioxide 24 Anion Gap 13.8 BUN 7 D Creatinine 0.58 Estimated Creat Clear 48 Estimated GFR 105 Est GFR ( Amer) 127 Glucose 156 H Calcium 7.0 L Vitamin B12 416 Preliminary micro results at discharge 06/13/18 19:35 Blood Culture - Preliminary Blood DS: Diagnosis - Discharge Diagnosis (1) Hypotension Status: Acute (2) Aspiration pneumonia Status: Acute (3) Dehydration Status: Acute (4) Hypomagnesemia Status: Acute (5) Vomiting Status: Acute (6) Hyponatremia Status: Acute (7) Low body mass index (BMI) Status: Acute (8) Seizure Status: Acute (9) Cardiomyopathy Status: Chronic (10) Hypothyroidism Status: Chronic (11) Peripheral neuropathy Status: Chronic (12) Anemia Status: Acute (13) Heme positive stool Status: Acute Discharge Plan - Patient Discharge Instructions ACTIVITY: Limited activity DIET: continue same diet Additional Instructions: Avoid alcohol Patient Instructions: Blood Alcohol Level, Dehydration, Alcohol Use Disorder, Upper GI Endoscopy, DI for Dehydration -- Adult, DI for Pneumonia -- Adult, DI for Alcohol Abuse, Drug and Alcohol Withdrawal, DI for Drug or Alcohol Withdrawal - Follow up Plan Follow up with: Denis Escudero MD [Staff Physician] - 1 week Unknown provider or service follow up:: 06/18/18 13:[address] Urbina in 2 weeks Disposition: Home, [facility] Medications: Home Medications Medication Instructions Recorded Confirmed Type Spironolactone 25 mg PO DAILY 04/27/18 06/13/18 History Levothyroxine Sodium [Synthroid 150 mcg PO DAILY 06/13/18 06/14/18 History 150mcg (0.15mg) tablet] Albuterol Sulfate [Albuterol HFA 2 puffs IH QIDP PRN 06/14/18 06/14/18 History Inhaler] Cholecalciferol (Vitamin D3) 2,000 units PO DAILY 06/14/18 06/14/18 History [Vitamin D3] Estradiol 1 mg PO DAILY 06/14/18 06/14/18 History Ferrous Sulfate 325 mg PO BID 06/14/18 06/14/18 History Gabapentin [Gabapentin 100mg Cap] 100 mg PO TID 06/14/18 06/14/18 History Oxybutynin Chloride [Ditropan 5mg 5 mg PO TID 06/14/18 06/14/18 History tablet] Raloxifene HCl 60 mg PO DAILY 06/14/18 06/14/18 History Sertraline HCl [Zoloft] 100 mg PO BID 06/14/18 06/14/18 History Carvedilol [Coreg 6.25mg 6.25 mg PO BID #60 tab 06/18/18 Rx Tablet] Gabapentin [Neurontin 100mg 100 mg PO TID #90 cap 06/18/18 Rx cap] Sucralfate [Carafate 1gm Tab] 2 gm PO BID #120 tab 06/18/18 Rx predniSONE [Deltasone 20mg 20 mg PO DAILY #20 tab 06/18/18 Rx tablet] Prescriptions/Medication Reconciliation: New Carvedilol [Coreg 6.25mg Tablet] 6.25 mg PO BID #60 tab predniSONE [Deltasone 20mg tablet] 20 mg PO DAILY #20 tab Gabapentin [Neurontin 100mg cap] 100 mg PO TID #90 cap Continued Spironolactone 25 mg PO DAILY Levothyroxine Sodium [Synthroid 150mcg (0.15mg) tablet] 150 mcg PO DAILY Albuterol Sulfate [Albuterol HFA Inhaler] 2 puffs IH QIDP PRN PRN Reason: Shortness Of Breath Or Wheezing Estradiol 1 mg PO DAILY Ferrous Sulfate 325 mg PO BID Gabapentin [Gabapentin 100mg Cap] 100 mg PO TID Oxybutynin Chloride [Ditropan 5mg tablet] 5 mg PO TID Raloxifene HCl 60 mg PO DAILY Sertraline HCl [Zoloft] 100 mg PO BID Sucralfate [Carafate 1gm Tab] 2 gm PO BID #120 tab Cholecalciferol (Vitamin D3) [Vitamin D3] 2,000 units PO DAILY Discontinued Carvedilol [Carvedilol 12.5mg Tab] 12.5 mg PO BID
== END 2018-06-18 14:20 | disposition home or self-care (01) | DRG 178 ==
LOC: ER 16:30 → 2ND 16:30 → OBSVTOIN 19:48 → 2ND 19:49
PROVIDERS: ADMIT Family Medicine; ATTEND Family Medicine
CPT/HCPCS: 36415; 70450; 71010; 71020; 71045; 71046; 80048; 80053; 80305; 82272; 82607; 83605; 83735; 84100; 85025; 85610; 85730; 86850; 87040; 87077; 87506; 93005; 94640; 94761; 96365; 96375; 99285; G0328; J1642; J1956; S0077

== ENCOUNTER 2018-06-20 10:36 | Inpatient (IN) | payer MEDICAID, SELFPAY ==
[2018-06-20] VITALS (11 sets, daily range): BP systolic 128–155; BP diastolic 81–91; PULSE 89–102; RESP 15–18; TEMP 37–37.1; O2SAT 91–98; BMI 18.8; BMI 15.7
--- NOTE | 2018-06-20 10:41 | HMH.EDGENADL ---
ED Disposition Clinical Impression: Recurrent seizures, Alcoholism, UTI (urinary tract infection) Disposition: Admitted as Observation Condition on Discharge: Fair Referrals: Berta Pagan MD [Primary Care Provider] - Time of Disposition: 13:27 - Critical Care Critical Care Time: No Attestation: On 06/20/18, the high probability of a clinically significant, sudden or life threatening deterioration of the following system(s) required my full and direct attention, intervention and personal management. The time I documented below is in addition to time spent performing reported procedures but includes the following listed in this critical care notation. Medical Decision Making - Medical Records Medical records reviewed: Yes: I reviewed the patient's medical records. - Juan José Inquiry Pt receiving controlled substance: No Juan José was queried for this patient: No Vital Signs: 06/20/18 10:40 06/20/18 11:06 06/20/18 11:58 Temperature 98.6 F Temperature Source Oral Pulse Rate [Right Radial] 91 H 89 91 H Respiratory Rate 16 Blood Pressure [Right Arm] 155/91 H 149/91 H 128/82 Blood Pressure Mean [Right Arm] 112 110 97 Blood Pressure Source [Right Arm] Automatic Cuff Automatic Cuff Automatic Cuff Blood Pressure Position [Right Arm] Supine Supine Sitting 02 Sat by Pulse Oximetry 91 L 98 92 L Oxygen Delivery Method Room Air 06/20/18 12:36 Temperature Temperature Source Pulse Rate [Right Radial] 96 H Respiratory Rate Blood Pressure [Right Arm] 135/85 Blood Pressure Mean [Right Arm] 101 Blood Pressure Source [Right Arm] Automatic Cuff Blood Pressure Position [Right Arm] Supine 02 Sat by Pulse Oximetry 94 L Oxygen Delivery Method - Lab Data Lab results reviewed: Yes: I reviewed the patient's lab results. Lab Results 06/20/18 10:55: WBC 7.3, RBC 3.10 L, Hgb 11.2 L, Hct 32.1 L, MCV 103.5 H, MCH 36.0 H, MCHC 34.8, RDW 16.7, Plt Count 169, MPV 7.5, Neut % (Auto) 64.8, Lymph % (Auto) 25.2, [place] % (Auto) 7.4, Eos % (Auto) 2.1, Baso % (Auto) 0.5, Neut # (Auto) 4.7, Lymph # (Auto) 1.9, [place] # (Auto) 0.5, Eos # (Auto) 0.2, Baso # (Auto) 0.0 06/20/18 10:55: Sodium 126 L, Potassium 3.4 L, Chloride 89 L, Carbon Dioxide 26, Anion Gap 14.4, BUN 6 L, Creatinine 0.80 D, Estimated Creat Clear 41, Estimated GFR 72, Est GFR ( Amer) 87 D, Glucose 98, Calcium 8.5 D, Total Bilirubin 0.5, AST 23, ALT 22, Alkaline Phosphatase 46, Total Protein 7.8 D, Albumin 3.3 L, Globulin 4.5 H, Albumin/Globulin Ratio 0.7 L, Plasma/Serum Alcohol 0 06/20/18 10:55: Magnesium 0.3 L 06/20/18 10:55: Urine Opiates Screen Negative, Urine Methadone Screen Negative, Ur Barbituates Screen Negative, Ur Phencyclidine Scrn Negative, Ur Amphetamines Screen Negative, U Benzodiazepines Scrn Negative, Urine Cocaine Screen Negative, U Marijuana (THC) Screen Negative 06/20/18 10:55: Lactate 1.8 06/20/18 11:04: Urine Color Yellow, Urine Appearance Cloudy, Urine pH 7.5, Ur Specific [place] 1.020, Urine Protein 2+, Urine Glucose (UA) Negative, Urine Ketones Negative, Urine Blood 1+, Urine Nitrate Positive, Urine Bilirubin Negative, Urine Urobilinogen 0.2, Ur Leukocyte Esterase 2+ A, Urine RBC 3-5, Urine WBC Tntc, Ur Squamous Epith Cells 20-50, Urine Bacteria 4+ Result diagrams: 06/20/18 10:55 06/20/18 10:55 Orders (Tests/Meds): ED MEDICATIONS Generic Name Dose Route Start Last Admin Trade Name Freq PRN Reason Stop Dose Admin Multivitamins 10 ml/ Thiamine 1,015 mls @ 150 mls/hr 06/20/18 11:00 06/20/18 11:16 HCl 100 mg/ Magnesium Sulfate IV 06/20/18 17:45 150 mls/hr 2 gm/ Lactated Ringer's .[id number] CORBIN Administration Cefepime HCl 2 gm/ Sodium 100 mls @ 200 mls/hr 06/20/18 12:15 06/20/18 12:38 Chloride IV 07/04/18 12:14 200 mls/hr Q12H CORBIN Administration Protocol Discontinued Medications Generic Name Dose Route Start Last Admin Trade Name Freq PRN Reason Stop Dose Admin Folic Acid 1 mg 06/20/18 10:58 Folic Ac
--- NOTE | 2018-06-20 10:52 | PC.NURSE ---
ZEKE GAITAN at
--- NOTE | 2018-06-20 10:56 | CT_ITS ---
CT head/brain wo con COMPARISON: Noncontrast CT scan of brain 06/13/2018 HISTORY: Seizure activity TECHNIQUE: Multiple axial scans obtained from base skull to the vertex and were performed without IV contrast. FINDINGS: The base of skull is grossly normal, the mastoids are clear. The basilar cisterns are prominent. There is diffuse reticular megaly. The sylvian fissures and cortical sulci are markedly prominent for a lady of this age. There is no definite ischemic infarct or bleed and there are no extra-axial fluid collections. There are mild periventricular hypodensities consistent with chronic ischemic white matter changes. Bony calvarium appears intact. IMPRESSION: Findings of prominent cortical atrophy for a patient this age but not totally unexpected with a history of chronic alcoholism. I see no acute intracranial pathology
--- NOTE | 2018-06-20 10:57 | XR_ITS ---
XR chest portable HISTORY: Follow-up pneumonia ITS.REASON: recent pneumonia ORDERING PHYSICIAN: Ricki Lopez MD PATIENT AGE: 62 years COMPARISON: Portable upright chest 06/13/2018 FINDINGS: The cardiomediastinal silhouette and pulmonary vascularity are within normal limits. Underlying emphysematous changes are noted with hyperexpansion lung [place]. There is been partial clearing of the ill-defined infiltrate right middle lobe with minimal residual infiltrate and/or scarring present. The cardiac pacemaker and dual chamber electrodes are again noted with electrodes in good position. There is a Mediport catheter entering the right subclavian vein with the tip in the SVC above the right atrium. IMPRESSION: Mild to moderate COPD, almost completely resolved right middle lobe pneumonia
--- NOTE | 2018-06-20 11:00 | ED_ITS ---
ED Disposition Clinical Impression: Recurrent seizures, Alcoholism, UTI (urinary tract infection) Disposition: Admitted as Observation Condition on Discharge: Fair Referrals: Berta Pagan MD [Primary Care Provider] - Time of Disposition: 13:27 - Critical Care Critical Care Time: No Attestation: On 06/20/18, the high probability of a clinically significant, sudden or life threatening deterioration of the following system(s) required my full and direct attention, intervention and personal management. The time I documented below is in addition to time spent performing reported procedures but includes the following listed in this critical care notation. Medical Decision Making - Medical Records Medical records reviewed: Yes: I reviewed the patient's medical records. - Juan José Inquiry Pt receiving controlled substance: No Juan José was queried for this patient: No Vital Signs: 06/20/18 10:40 06/20/18 11:06 06/20/18 11:58 Temperature 98.6 F Temperature Source Oral Pulse Rate [Right Radial] 91 H 89 91 H Respiratory Rate 16 Blood Pressure [Right Arm] 155/91 H 149/91 H 128/82 Blood Pressure Mean [Right Arm] 112 110 97 Blood Pressure Source [Right Arm] Automatic Cuff Automatic Cuff Automatic Cuff Blood Pressure Position [Right Arm] Supine Supine Sitting 02 Sat by Pulse Oximetry 91 L 98 92 L Oxygen Delivery Method Room Air 06/20/18 12:36 Temperature Temperature Source Pulse Rate [Right Radial] 96 H Respiratory Rate Blood Pressure [Right Arm] 135/85 Blood Pressure Mean [Right Arm] 101 Blood Pressure Source [Right Arm] Automatic Cuff Blood Pressure Position [Right Arm] Supine 02 Sat by Pulse Oximetry 94 L Oxygen Delivery Method - Lab Data Lab results reviewed: Yes: I reviewed the patient's lab results. Lab Results 06/20/18 10:55: WBC 7.3, RBC 3.10 L, Hgb 11.2 L, Hct 32.1 L, MCV 103.5 H, MCH 36.0 H, MCHC 34.8, RDW 16.7, Plt Count 169, MPV 7.5, Neut % (Auto) 64.8, Lymph % (Auto) 25.2, [place] % (Auto) 7.4, Eos % (Auto) 2.1, Baso % (Auto) 0.5, Neut # (Auto) 4.7, Lymph # (Auto) 1.9, [place] # (Auto) 0.5, Eos # (Auto) 0.2, Baso # (Auto) 0.0 06/20/18 10:55: Sodium 126 L, Potassium 3.4 L, Chloride 89 L, Carbon Dioxide 26, Anion Gap 14.4, BUN 6 L, Creatinine 0.80 D, Estimated Creat Clear 41, Estimated GFR 72, Est GFR ( Amer) 87 D, Glucose 98, Calcium 8.5 D, Total Bilirubin 0.5, AST 23, ALT 22, Alkaline Phosphatase 46, Total Protein 7.8 D, Albumin 3.3 L, Globulin 4.5 H, Albumin/Globulin Ratio 0.7 L, Plasma/Serum Alcohol 0 06/20/18 10:55: Magnesium 0.3 L 06/20/18 10:55: Urine Opiates Screen Negative, Urine Methadone Screen Negative, Ur Barbituates Screen Negative, Ur Phencyclidine Scrn Negative, Ur Amphetamines Screen Negative, U Benzodiazepines Scrn Negative, Urine Cocaine Screen Negative, U Marijuana (THC) Screen Negative 06/20/18 10:55: Lactate 1.8 06/20/18 11:04: Urine Color Yellow, Urine Appearance Cloudy, Urine pH 7.5, Ur Specific [place] 1.020, Urine Protein 2+, Urine Glucose (UA) Negative, Urine Ketones Negative, Urine Blood 1+, Urine Nitrate Positive, Urine Bilirubin Negative, Urine Urobilinogen 0.2, Ur Leukocyte Esterase 2+ A, Urine RBC 3-5, Urine WBC Tntc, Ur Squamous Epith Cells 20-50, Urine Bacteria 4+ Result diagrams: 06/20/18 10:55
--- NOTE | 2018-06-20 11:00 | PC.NURSE ---
Pt reports last alcohol intake was a couple days ago , pt reports trying to quit drinking alcohol. notified ER
--- NOTE | 2018-06-20 11:03 | PC.NURSE ---
contacted pharmacy to mix Rally pack for pt
--- NOTE | 2018-06-20 11:04 | PC.NURSE ---
seizure pads in place on bed
--- NOTE | 2018-06-20 11:05 | PC.NURSE ---
Inserted by matteo
[2018-06-20 11:10] LABS: Microscopic, Urine URINE MICROSCOPIC (MICROSCOPIC)
[2018-06-20 11:12] LABS: Appearance,Urine CLOUDY (Clear); Bilirubin,Urine Negative (Negative); Blood, Urine 1+ (Negative); Color,Urine YELLOW (Yellow); Glucose,Urine (UA) Negative (Negative); Ketones,Urine Negative (Negative); Leukocyte Esterase,Urine 2+ (Negative); Nitrate,Urine POSITIVE (Negative); PH,Urine 7.5 (5.0-8.5); Protein,Urine 2+ (Negative); Urobilinogen,Urine 0.2 EU/dl (0.2)
[2018-06-20 11:14] LABS: Basophils % 0.5 % (0.1-2.0); Eosinophils # 0.2 K/mm3 (0.0-0.4); Eosinophils % 2.1 % (0.1-12.0); Hematocrit 32.1 % (37.0-47.0); Hemoglobin 11.2 g/dL (12.2-16.2); Lymphocytes # 1.9 K/mm3 (0.7-4.5); Lymphocytes % 25.2 % (10-50); Mean Corpuscular HGB Conc 34.8 g/dL (31.8-35.4); Mean Corpuscular Volume 103.5 fl (81-99); Mean Platelet Volume 7.5 fl (7.4-10.4); Monocytes # 0.5 K/mm3 (0.1-1.0); Monocytes % 7.4 % (1.7-9.3); Neutrophils # 4.7 K/mm3 (1.8-7.8); Neutrophils % 64.8 % (37.0-80.0); Platelet Count 169 K/mm3 (142-424); Red Cell Distribution Width 16.7 % (11.5-17.5); White Blood Count 7.3 K/mm3 (4.8-10.8)
--- NOTE | 2018-06-20 11:16 | PC.NURSE ---
pt to CT
[2018-06-20 11:20] LABS: Amphetamine/Metha Screen,Urine Negative ng/mL (<1000); Barbiturates Screen,Urine Negative ng/mL (<200); Benzodiazepines Screen,Urine Negative ng/mL (<200); Cannabinoid Screen,Urine Negative ng/mL (<50); Cocaine Screen,Urine Negative ng/mL (<300); Methadone Screen,Urine Negative ng/mL (<300); Opiate Screen,Urine Negative ng/mL (<300); Phencyclidine Screen,Urine Negative ng/mL (<25)
[2018-06-20 11:21] LABS: Bacteria,Urine 4+ /lpf; Squamous Epithelial Cell,Urine 20-50 #/hpf (0-5); WBC,Urine TNTC #/hpf (0-3)
[2018-06-20 11:29] LABS: Lactic Acid 1.8 mmol/L (0.4-2.0)
--- NOTE | 2018-06-20 11:30 | PC.NURSE ---
informed of mag level 0.3
[2018-06-20 11:32] LABS: Magnesium 0.3 mg/dL (1.4-2.2)
[2018-06-20 11:35] LABS: Alanine Aminotransferase 22 U/L (12-78); Albumin Level 3.3 gm/dL (3.4-5.0); Albumin/Globulin Ratio 0.7 (1.1-1.8); Alkaline Phosphatase 46 U/L (46-116); Anion Gap 14.4 mEq/L (5-15); Aspartate Amino Transferase 23 U/L (15-37); Bilirubin,Total 0.5 mg/dL (0.2-1.0); Blood Urea Nitrogen 6 mg/dL (7-18); Carbon Dioxide 26 mmol/L (21.0-32.0); Chloride 89 mmol/L (98-107); Creatinine Clearance Estimated 41 mL/min (50-200); Estimated Glomerular Filt Rate 72 ml/min (>60); GFR (African American) 87 ML/MIN (>60); Globulin 4.5 gm/dl (1.3-3.2); Glucose 98 mg/dL (74-106); Potassium 3.4 mmoL/L (3.5-5.1); Sodium 126 mmol/L (136-145); Total Protein,Serum 7.8 gm/dL (6.4-8.2)
[2018-06-20 11:36] LABS: Ethyl Alcohol 0 mg/dL (0-99)
--- NOTE | 2018-06-20 11:42 | PC.NURSE ---
pt return from CT
[2018-06-20 11:45] LABS: Calcium 8.5 mg/dL (8.5-10.1)
--- NOTE | 2018-06-20 12:03 | PC.NURSE ---
pt friend at [facility], states he and his check in out pt frequently and help take care of her, friend states his states pt had a seizure yesterday. Notified ZEKE GAITAN
--- NOTE | 2018-06-20 13:10 | PC.NURSE ---
ZEKE GAITAN contacted lab to check on status of urine culture on 06/13/18, lab stated they had to send to culture out for ID and sensitivity
--- NOTE | 2018-06-20 13:12 | PC.NURSE ---
ZEKE GAITAN speaking with Dr. Retana who is precision grinder external for Dr. urbina
--- NOTE | 2018-06-20 13:23 | PC.NURSE ---
contacting smokehouse operator for bed assignment
--- NOTE | 2018-06-20 13:36 | PC.NURSE ---
house wirer helper called back with bed assignment notified registration staff of admission information
--- NOTE | 2018-06-20 14:06 | PC.NURSE ---
report to RoulaRN on second floor at this time
--- NOTE | 2018-06-20 14:21 | PC.NURSE ---
Pt arrived to floor at this time.
--- NOTE | 2018-06-20 15:35 | PC.NURSE ---
This nurse was called into pt room at approx 1455 by primary RN. RN was concerned about pt showing signs of possible posturing . upon entering the room pt was having what appears to be a seizure. Nasal trumpet and ambu bag were obtained and placed at bedside. pt o2 was stable at this time, seizure lasted approximately 30- 45 seconds. nasal trumpet was not used at this time. pt was noted to start seizing again following the apparent postictal period following first seizure like episode. Primary RN contacted MD argon tester to update on pt condition as she was a new admit to the floor. RN Enzo administered ativan per apr and md orders, MD also states to administer Keppra 1000mg. Med obtained and mixed by this rn. verified with Ferny Hernandez in pharmacy at 1520 1000mg keppra ok to give. dilute in 100ml of ns and admin over 15 minutes.
--- NOTE | 2018-06-20 15:50 | PC.NURSE ---
patient laying in bed asleep. ice and trash done
[2018-06-21] VITALS (9 sets, daily range): BP systolic 103–134; BP diastolic 60–86; PULSE 78–94; RESP 16–18; TEMP 36.7–37.4; O2SAT 93–99; BMI 15.5
--- NOTE | 2018-06-21 03:22 | PC.NURSE ---
PT SLEPT T/O MOST OF THE SHIFT. DURING ASSESSMENT PT WAS ALERT TO PERSON ONLY AND AROUSABLE TO NAME. PT WOULD ANSWER A FEW QUESTIONS WITH ONE WORD ANSWERS BUT NOT RESPOND TO PHYSICAL COMMANDS. PT WAS UNABLE TO DRINK ANYTHING OR TAKE ANY MEDICATION BY MOUTH. CIWA ASSESSMENT WAS PERFORMED EVERY 4HRS THIS SHIFT. SEIZURE PADS REMAINED IN PLACE T/O THE SHIFT. CLEAR, EQUAL BREATH SOUNDS PER AUSCULTATION. PT REMAINED ON 2L NC. TOLERATED WELL. SOFT AND FLAT ABDOMEN PRESENT PER PALPATION. PT DENIED ANY PAIN T/O THE SHIFT. PT REMAINED BED RIDDEN THIS SHIFT BUT WAS ABLE TO TURN AND REPOSITION HERSELF INDEPENDENTLY T/O THE NIGHT. PT PORT IS ASSESSED. PORT WAS PATENT WHEN FLUSHED AND DRESSING WAS CDI WITH NO S/S OF INFECTION PRESENT. VSS. WILL CONTINUE TO MONITOR.
[2018-06-21 06:40] LABS: Basophils % 0.4 % (0.1-2.0); Eosinophils # 0.1 K/mm3 (0.0-0.4); Eosinophils % 2.1 % (0.1-12.0); Hematocrit 28.7 % (37.0-47.0); Lymphocytes # 1.7 K/mm3 (0.7-4.5); Lymphocytes % 24.3 % (10-50); Mean Corpuscular Hemoglobin 34.9 pg (27.0-31.2); Mean Corpuscular Volume 102.7 fl (81-99); Mean Platelet Volume 7.3 fl (7.4-10.4); Monocytes # 0.6 K/mm3 (0.1-1.0); Monocytes % 8.5 % (1.7-9.3); Neutrophils # 4.5 K/mm3 (1.8-7.8); Neutrophils % 64.7 % (37.0-80.0); Platelet Count 152 K/mm3 (142-424); Red Blood Count 2.79 M/mm3 (4.20-5.40); Red Cell Distribution Width 16.4 % (11.5-17.5)
[2018-06-21 06:50] LABS: Anion Gap 11.8 mEq/L (5-15); Blood Urea Nitrogen 5 mg/dL (7-18); Carbon Dioxide 27 mmol/L (21.0-32.0); Chloride 91 mmol/L (98-107); Creatinine Clearance Estimated 40 mL/min (50-200); Creatinine,Serum 0.64 mg/dL (0.55-1.02); Estimated Glomerular Filt Rate 93 ml/min (>60); GFR (African American) 113 ML/MIN (>60); Glucose 71 mg/dL (74-106); Magnesium 1.5 mg/dL (1.4-2.2); Sodium 127 mmol/L (136-145)
[2018-06-21 07:10] LABS: Potassium 2.8 mmoL/L (3.5-5.1)
[2018-06-21 07:18] LABS: Hemoglobin 9.8 g/dL (12.2-16.2)
--- NOTE | 2018-06-21 07:25 | P.CONPHA_ITS ---
[facility] Pharmacy VTE Monitoring - Patient Demographics Admission date: 06/20/18 Report Date: 06/21/18 Time: 07:25 Allergies/Adverse Reactions: Patient Allergies lisinopril [LISINOPRIL] Allergy (Severe, Verified 04/27/18 01:05) R-DVHYFN-HIXU/THROAT Penicillins [PENICILLINS] Allergy (Severe, Verified 04/27/18 01:05) R-LYONTC-CUBS/THROAT Sulfa (Sulfonamide Antibiotics) [SULFA (SULFONAMIDE ANTIBIOTICS)] Allergy (Severe, Verified 04/27/18 01:05) S-SKIN ERUPTIONS sulfamethoxazole [From BACTRIM] Allergy (Severe, Verified 04/27/18 01:05) S-SKIN ERUPTIONS trimethoprim [From BACTRIM] Allergy (Severe, Verified 04/27/18 01:05) S-SKIN ERUPTIONS latex [LATEX] Allergy (Intermediate, Verified 04/27/18 01:05) I-RASH metronidazole Adverse Reaction (Severe, Verified 04/29/18 10:12) Gastrointestinal Upset BANANAS (FOOD) Allergy (Severe, Uncoded 01/27/17 15:12) THROAT SWELLS Height: 1.7 m Weight: 44.707 kg Patient Problems: Current Active Problems (Updated 06/20/18 @ 13:27 by Ricki Lopez MD) UTI (urinary tract infection) (Acute) Alcoholism (Acute) Recurrent seizures (Acute) - VTE Risk Labs: VTE Related Lab Results Hgb 9.8 g/dL (12.2-16.2) L D 06/21/18 05:56 Hct 28.7 % (37.0-47.0) L 06/21/18 05:56 Plt Count 152 K/mm3 (142-424) 06/21/18 05:56 BUN 5 mg/dL (7-18) L 06/21/18 05:56 Creatinine 0.64 mg/dL (0.55-1.02) 06/21/18 05:56 Estimated Creat Clear 40 mL/min (50-200) 06/21/18 05:56 Was VTE Risk Assessment Performed: Yes VTE Score: 2 VTE Risk Level: Very Low Risk - Prophylaxis VTE Prophylaxis Ordered?: Yes Types of VTE Prophylaxis: TEDS Knee High Location of Applied Device: Bilateral Lower Extremeties - VTE Diagnosis Confirmed Treatment or plan recommended: Continue Current Treatment
--- NOTE | 2018-06-21 07:31 | HMH.PHAINT ---
MEDICATION RECONCILIATION COMPLETED ON PATIENT USING LIST FROM PREVIOUS ADMISSION AND EXTERNAL FILL HISTORY FROM PHARMACY. -STANFORD SHAFFERD
[2018-06-21 09:09] LABS: Alanine Aminotransferase 21 U/L (12-78); Albumin Level 2.7 gm/dL (3.4-5.0); Alkaline Phosphatase 39 U/L (46-116); Aspartate Amino Transferase 29 U/L (15-37); Bilirubin,Direct 0.1 mg/dL (0.0-0.2); Bilirubin,Indirect 0.4 mg/dL (0.0-0.9); Bilirubin,Total 0.5 mg/dL (0.2-1.0); Total Protein,Serum 6.6 gm/dL (6.4-8.2)
--- NOTE | 2018-06-21 09:21 | HMH.HP ---
*Admission Date: 06/20/18 <Araceli Ramos - 06/21/18 09:30> *Chief complaint: Seizures <Araceli Ramos - 06/21/18 09:30> *History of present illness: Mr. Foster is a 62-year-old female recently discharged from [facility] on June 18, 2018 after 5-day stay with diagnoses of hypotension, pneumonia, (possibly aspiration ), vomiting, hypo-magnesium, hyponatremia, seizures, cardiomyopathy, hypothyroidism, anemia, and newly diagnosed per EGD per Dr. Zuñiga, gastritis and antral and duodenal ulcers who was brought to [facility] emergency room after apparently having additional seizures at home. Patient is lethargic this morning and is unable to answer questions. History is obtained from emergency room record. With evaluation in the emergency room CT of the head showed no acute pathology. Chest x-ray showed almost resolved pneumonia. Patient was then admitted for further evaluation and treatment. She was felt to have a urinary tract infection. After admission patient did have seizure activity and was given IV Ativan as well as IV Keppra. She had no further seizures during the night and remains very lethargic this morning. During patient hospitalization June 13 through June 18, 2018 patient's sodium was low and renal failure function was elevated. lactic acid was also elevated. Chest x-ray did show a right middle lobe infiltrate. CT of the head showed nothing acute. She received IV fluids with boluses for her hypotension and was started on IV antibiotics. She was felt to have some adrenal insufficiency and was started on p.o. steroids. Hemoglobin did begin to decrease and she was found to have heme positive stool. Dr. Zuñiga performed an EGD and patient was found to have a moderate to severe patchy gastritis, shallow nonbleeding antral ulcer, and a shallow nonbleeding duodenal bulb ulcer with no signs of active hemorrhage. Patient was started on Protonix and Carafate. After the EGD she was stable and able to tolerate her diet without any nausea. She was ambulating in the room and she was discharged home. She had no further seizures after admission. To note blood cultures at discharge revealed gram-positive bacillus and was sent to [facility] for ID <Araceli Ramos - 06/21/18 09:44> [facility] History Medical History: Reports:: Anxiety, Cancer (MOUTH CANCER), Cardiomyopathy, Chronic Obstructive Pulmonary Disease (COPD), Depression, Hypertension, Internal Pacemaker, Seizures Denies:: Diabetes Mellitus Type 1, Diabetes Mellitus Type 2, MRSA <Araceli Ramos 06/21/18 09:30> *Have you ever received a pneumonia vaccine?: No <Araceli Ramos 06/21/18 09:30> *Have you received a flu vaccine this season?: No <Araceli Ramos 06/21/18 09:30> Other Medical History: Reports: Anemia, Hypothyroidism, Thyroid Disease <Araceli Ramos 06/21/18 09:30> Laterality Cases: Bilateral: Myringotomy (Ear Tubes) <Araceli Ramos 06/21/18 09:30> Other Surgeries: Yes: Hysterectomy-Total, Pacemaker <Araceli Ramos 06/21/18 09:30> Amputation: No <Araceli Ramos 06/21/18 09:30> Fractures: No <Araceli Ramos 06/21/18 09:30> Comment: Bottom teeth extracted; left radical neck dissection 04/29/2011; exploratory laparotomy with right colon 05/07/2011; I&D of left neck 05/08/2011; biopsy on jaw 2011 bilateral left March 2015 <Araceli Ramos 06/21/18 09:44> - *Social History Smoking Status: Current every day smoker <Araceli Ramos 06/21/18 09:30> Tobacco Type: cigarettes <Araceli Ramos 06/21/18 09:30> # Packs/Day (cigarettes): 1 <Araceli Ramos 06/21/18 09:30> Alcohol Intake: current <Araceli Ramos 06/21/18 09:30> Alcohol Intake Frequency:: 3 or more drinks per day <Araceli Ramos 06/21/18 09:30> *Occupational Status:: disabled <Araceli Ramos 06/21/18 09:30> Housing: house <Araceli Ramos 06/21/18 09:30> *Travel in the last 8 weeks: None <Araceli Ramos 06/21/18 09:30> - Psychiatric History Expresses thoughts of harming se
--- NOTE | 2018-06-21 09:25 | P.HP_ITS ---
*Admission Date: 06/20/18 <Araceli Ramos - 06/21/18 09:30> *Chief complaint: Seizures <Araceli Ramos - 06/21/18 09:30> *History of present illness: Mr. Foster is a 62-year-old female recently discharged from [facility] on June 18, 2018 after 5-day stay with diagnoses of hypotension, pneumonia, (possibly aspiration ), vomiting, hypo-magnesium, hyponatremia, seizures, cardiomyopathy, hypothyroidism, anemia, and newly diagnosed per EGD per Dr. Zuñiga, gastritis and antral and duodenal ulcers who was brought to [facility] emergency room after apparently having additional seizures at home. Patient is lethargic this morning and is unable to answer q uestions. History is obtained from emergency room record. With evaluation in the emergency room CT of the head showed no acute pathology. Chest x-ray showed almost resolved pneumonia. Patient was then admitted for further evaluation and treatment. She was felt to have a urinary tract infection. After admission patient did have seizure activity and was given IV Ativan as well as IV Keppra. She had no further seizures during the night and remains very lethargic this morning. During patient hospitalization June 13 through June 18, 2018 patient's sodium was low and renal failure function was elevated. lactic acid was also elevated. Chest x-ray did show a right middle lobe infiltrate. CT of the head showed nothing acute. She received IV fluids with boluses for her hypotension and was started on IV antibiotics. She was felt to have some adrenal insufficiency and was started on p.o. steroids. Hemoglobin did begin to decrease and she was found to have heme positive stool. Dr. Zuñiga performed an EGD and patient was found to have a moderate to severe patchy gastritis, shallow nonbleeding antral ulcer, and a shallow nonbleeding duodenal bulb ulcer with no signs of active hemorrhage. Patient was started on Protonix and Carafate. After the EGD she was stable and able to tolerate her diet without any nausea. She was ambulating in the room and she was discharged home. She had no further seizures after admission. To note blood cultures at discharge revealed gram-positive bacillus and was sent to [facility] for ID <Araceli Ramos - 06/21/18 09:44> [facility] History Medical History: Reports:: Anxiety, Cancer (MOUTH CANCER), Cardiomyopathy, Chronic Obstructive Pulmonary Disease (COPD), Depression, Hypertension, Internal Pacemaker, Seizures Denies:: Diabetes Mellitus Type 1, Diabetes Mellitus Type 2, MRSA <Arcaeli Ramos 06/21/18 09:30> *Have you ever received a pneumonia vaccine?: No <Araceli Ramos 06/21/18 09:30> *Have you received a flu vaccine this season?: No <Araceli Ramos 06/21/18 09:30> Other Medical History: Reports: Anemia, Hypothyroidism, Thyroid Disease <Araceli Ramos 06/21/18 09:30> Laterality Cases: Bilateral: Myringotomy (Ear Tubes) <Araceli Ramos 06/21/18 09:30> Other Surgeries: Yes: Hysterectomy-Total, Pacemaker <Araceli Ramos 06/21/18 09:30> Amputation: No <Araceli Ramos 06/21/18 09:30> Fractures: No <Araceli Ramos 06/21/18 09:30> Comment: Bottom teeth extracted; left radical neck dissection 04/29/2011; exploratory laparotomy with right colon 05/07/2011; I&D of left neck 05/08/2011; biopsy on jaw 2011 bilateral left March 2015 <Araceli Ramos 06/21/18 09:44> - *Social History Smoking Status: Current every day smoker <Araceli Ramos 06/21/18 09:30> Tobacco Type: cigarettes <Araceli Ramos 06/21/18 09:30> # Packs/Day (cigarettes): 1 <Araceli Ramos 06/21/18 09:30> Alcohol Intake: current <Araceli Ramos 06/21/18 09:30> Alcohol Intake Frequency:: 3 or mo
--- NOTE | 2018-06-21 15:41 | PC.NURSE ---
Pt resting in bed. Slept at intervals throughout shift. A/O x 1. Continues to be lethargic, able to verbalize concrete needs. Ate few bites at lunch and has drank on and off throughout shift. PANCHO's in place with non-skid socks. Pt de-accessed port, port re-accessed per this nurse. Continues with 20g IV to RFA, patent and intact. Abdomen soft and non-tender. Denies pain. Denies N/V/D. No seizure activity thus far this shift. Seizure pads in place. Bed alarm in place r/t unsafe unassisted transfers. Indwelling catheter in place draining clear yellow urine to bedside drain. Call light within reach, will continue to observe.
--- NOTE | 2018-06-21 19:09 | PC.NURSE ---
report given to aakash
[2018-06-22] VITALS (8 sets, daily range): BP systolic 102–142; BP diastolic 59–86; PULSE 80–100; RESP 16–20; TEMP 36.6–37.1; O2SAT 92–99; BMI 15.5
--- NOTE | 2018-06-22 00:53 | PC.NURSE ---
Pt is laying in bed resting with eyes closed at this time. Has been up to restroom one time this shift. Had a large BM. Has been a/o x 3. Has been pulled up in bed several times. Lungs have been clear, resp even and non labored. No seizure activity noted. Pt is very thin, weak in lower ext.Has to have standby assist while ambulating. Has drank a chocolate ensure, apple sauce, sips of water. Port is flushing easily, no s/sx of infection noted. IV is also patent, flushes easily. Bed safety is on, TEDS are on. Encouraged pt to notify staff of any needs. Educated on how to use call light. Bed is locked in low position, side rails up x 2. Will continue to monitor.
--- NOTE | 2018-06-22 08:57 | HMH.ACPN2 ---
Internal Medicine - PN: Frieda *Date: 06/22/18 *Time: 08:57 Interval history: Pt with no new complaints today, no seizure activity reported overnight. Exam Vital signs and Labs for Last 24 Hours: Temp Pulse Resp BP Pulse Ox 98.5 F 87 18 137/78 94 L 06/22/18 08:00 06/22/18 08:00 06/22/18 08:00 06/22/18 08:00 06/22/18 08:00 Laboratory Results - last 24 hr 06/20/18 11:04: Urine Color Yellow, Urine Appearance Cloudy, Urine pH 7.5, Ur Specific [place] 1.020, Urine Protein 2+, Urine Glucose (UA) Negative, Urine Ketones Negative, Urine Blood 1+, Urine Nitrate Positive, Urine Bilirubin Negative, Urine Urobilinogen 0.2, Ur Leukocyte Esterase 2+ A, Urine RBC 3-5, Urine WBC Tntc, Ur Squamous Epith Cells 20-50, Urine Bacteria 4+ 06/21/18 05:56: Total Bilirubin 0.5, Direct Bilirubin 0.1, Indirect Bilirubin 0.4, AST 29 D, ALT 21, Alkaline Phosphatase 39 L, Total Protein 6.6, Albumin 2.7 L D Vital Signs - 24 hr 06/21/18 11:32 06/21/18 11:35 06/21/18 15:29 Temperature 98.4 F 98.2 F Pulse Rate 80 Pulse Rate [Right Radial] 92 H 78 Respiratory Rate 16 16 Blood Pressure [Left Arm] 122/75 112/74 02 Sat by Pulse Oximetry 99 96 06/21/18 20:00 06/21/18 20:40 06/22/18 00:00 Temperature 98.5 F 98.1 F Pulse Rate Pulse Rate [Right Radial] 94 H 86 Respiratory Rate 16 16 Blood Pressure [Left Arm] 103/60 L 107/62 L 02 Sat by Pulse Oximetry 98 95 92 L 06/22/18 04:00 06/22/18 08:00 Temperature 97.8 F 98.5 F Pulse Rate Pulse Rate [Right Radial] 100 H 87 Respiratory Rate 18 18 Blood Pressure [Left Arm] 102/59 L 137/78 02 Sat by Pulse Oximetry 93 L 94 L I & O for Last 24 hours: Intake & Output 05/11/19 05/12/19 05/13/19 05/14/19 23:59 23:59 23:59 23:59 Intake Total 2282.167 / 2282.167 627 / 627 Output Total 1350 / 1350 1250 / 1250 300 / 300 Balance -1350 / -1350 1032.167 / 1032.167 327 / 327 Weight 100 lb 2.99 oz 98 lb 9 oz 98 lb 9 oz Microbiology Reports for the Last 24 Hours: Microbiology 06/20/18 11:04 Urine,Catheterized Urine Culture - Preliminary Gram Negative Rods Gram Negative Rods#2 - Constitutional no acute distress - *Routine HEENT Exam Head: Present: normocephalic Eye: Present: EOMI ENT: Present: mucous membranes moist - *Routine Neck Exam Present: supple. Absent: lymphadenopathy - *Routine Respiratory Exam Present: CTA bilaterally - *Routine Cardiovascular Exam Present: RRR - *Routine Abdominal Exam Present: soft, normoactive bowel sounds. Absent: tenderness - *Routine Extremities Exam Absent: cyanosis, clubbing, edema - *Routine Skin Exam Present: warm. Absent: rash - *Routine Neurological Exam Present: alert oriented x1, unaware she is in the hospital Assessment and Plan (1) Recurrent seizures Current visit: Yes Status: Acute Category: Medical Code(s): G40.909 - Epilepsy, unspecified, not intractable, without status epilepticus (2) Positive blood culture Current visit: Yes Status: Acute Category: Medical Code(s): R78.81 - Bacteremia (3) Gastritis Current visit: Yes Status: Chronic Category: Medical Code(s): K29.70 - Gastritis, unspecified, without bleeding (4) Duodenal ulcer Current visit: Yes Status: Chronic Category: Medical Code(s): K26.9 - Duodenal ulcer, unspecified as acute or chronic, without hemorrhage or perforation (5) Antral ulcer Current visit: Yes Status: Chronic Category: Medical Code(s): K25.9 - Gastric ulcer, unspecified as acute or chronic, without hemorrhage or perforation (6) Alcoholism Current visit: Yes Status: Chronic Category: Medical Code(s): F10.20 - Alcohol dependence, uncomplicated (7) UTI (urinary tract infection) Current visit: Yes Status: Acute Category: Medical Code(s): N39.0 - Urinary tract infection, site not specified (8) Anemia Current visit: No Status: Chronic Category:
--- NOTE | 2018-06-22 18:54 | PC.NURSE ---
PATIENT A&O X2, ABLE TO TELL RN HER NAME AND , LUNGS: EXPIRATORY WHEEZING HEARD, PULSES EQUAL, TRAFFIC SIGNAL REPAIRER WEAK BUT EQUAL. PATIENT STATED THAT HER NURSE CAME TO VISIT AND WANTS HER [place] OUT, RN EXPLAINED TO PATIENT THAT IT IS UP TO THE PHYSICIAN. PATIENT STATED WELL SHE WANTS IT OUT. RN ADVISED HER TO SPEAK TO THE MD. PATIENT STATED OKAY. PATIENT UP TO CHAIR TODAY, AMBULATED FAIR., NO SEIZURES DURING THIS SHIFT. APPETITE GOOD, PATIENT ASKED FOR A BATH AND BED CHANGE, SRNA PROVIDED CARE. NO NEW NEEDS OR CONCERNS AT THIS TIME.
[2018-06-23 04:00] VITALS: BP 144/72; PULSE 87; RESP 18; TEMP 36.5; O2SAT 92
--- NOTE | 2018-06-23 05:10 | PC.NURSE ---
PT ALERT AND ORIENTED X2. NO SEIZURES NOTED THIS SHIFT. SEIZURE PADS IN PLACE. IV SECURE AND PATENT, WELL PT'S PORT. CONTINUES ON IV ABX. PT TAKES HER MEDS CRUSHED IN APPLESAUCE W/O DIFFICULTY. RESPIRATIONS EVEN AND UNLABORED ON ROOM AIR. BREATH SOUNDS CLEAR. PT HAS ORDER FOR A.M. LABS TODAY. NO C/O PAIN OR DISCOMFORT. PT STABLE. WILL CONTINUE TO MONITOR. REPORT TO BE GIVEN TO ONCOMING NURSE.
[2018-06-23 07:10] LABS: Basophils % 0.2 % (0.1-2.0); Eosinophils # 0.1 K/mm3 (0.0-0.4); Hematocrit 27.7 % (37.0-47.0); Hemoglobin 9.4 g/dL (12.2-16.2); Lymphocytes # 1.8 K/mm3 (0.7-4.5); Lymphocytes % 26.2 % (10-50); Mean Corpuscular HGB Conc 33.9 g/dL (31.8-35.4); Mean Corpuscular Hemoglobin 35.3 pg (27.0-31.2); Mean Corpuscular Volume 104.1 fl (81-99); Mean Platelet Volume 7.7 fl (7.4-10.4); Monocytes # 0.5 K/mm3 (0.1-1.0); Monocytes % 6.9 % (1.7-9.3); Neutrophils # 4.4 K/mm3 (1.8-7.8); Neutrophils % 64.8 % (37.0-80.0); Platelet Count 158 K/mm3 (142-424); Red Blood Count 2.66 M/mm3 (4.20-5.40); White Blood Count 6.8 K/mm3 (4.8-10.8)
[2018-06-23 07:18] LABS: Anion Gap 8.4 mEq/L (5-15); Blood Urea Nitrogen 10 mg/dL (7-18); Carbon Dioxide 29 mmol/L (21.0-32.0); Chloride 97 mmol/L (98-107); Creatinine Clearance Estimated 40 mL/min (50-200); Creatinine,Serum 0.63 mg/dL (0.55-1.02); Estimated Glomerular Filt Rate 95 ml/min (>60); GFR (African American) 115 ML/MIN (>60); Glucose 93 mg/dL (74-106); Potassium 3.4 mmoL/L (3.5-5.1); Sodium 131 mmol/L (136-145)
--- NOTE | 2018-06-23 07:21 | SW/DCPLANNER ---
PATIENT READMITTED TO [facility] AFTER BEING DISCHARGED THE SAME DAY WITH RECURRING SEIZURES.. PATEINT IS WELL KNOWN TO [facility] FOR HER ETOH PROBLEMS.. PATIENT HAS A LONG HISTORY OF HEALTH ISSUES AND IS ADMITTED HERE OFTEN.. CM WILL OFFER AA INFORMATION AND PLACES TO GO TO HELP WITH HER ALCOHOL ADDICTION.. WILL SEE IF PATIENT IS INTERESTED ONCE SHE IS MEDICALLY STABLE TO DISCHARGE FROM HERE...
[2018-06-23 07:50] VITALS: BP 139/80; PULSE 87; RESP 17; TEMP 36.8; O2SAT 95
--- NOTE | 2018-06-23 08:18 | HMH.ACPN2 ---
<Zeny Day - Last Filed: 06/23/18 08:18> Internal Medicine - PN: Subj *Date: 06/23/18 *Time: 08:18 Interval history: Patient states she is feeling well this morning. She does have some pain in her feet. She states she did not rest well last night and can never sleep when she is in the hospital. She has not eaten breakfast yet this morning. Exam Vital signs and Labs for Last 24 Hours: Temp Pulse Resp BP Pulse Ox 98.3 F 87 17 139/80 95 06/23/18 07:50 06/23/18 07:50 06/23/18 07:50 06/23/18 07:50 06/23/18 07:50 Laboratory Results - last 24 hr 06/23/18 06:55: WBC 6.8, RBC 2.66 L, Hgb 9.4 L, Hct 27.7 L, MCV 104.1 H, MCH 35.3 H, MCHC 33.9, RDW 16.0, Plt Count 158, MPV 7.7, Neut % (Auto) 64.8, Lymph % (Auto) 26.2, [place] % (Auto) 6.9, Eos % (Auto) 2.0, Baso % (Auto) 0.2, Neut # (Auto) 4.4, Lymph # (Auto) 1.8, [place] # (Auto) 0.5, Eos # (Auto) 0.1, Baso # (Auto) 0.0 06/23/18 06:55: Sodium 131 L, Potassium 3.4 L D, Chloride 97 L, Carbon Dioxide 29, Anion Gap 8.4, BUN 10 D, Creatinine 0.63, Estimated Creat Clear 40, Estimated GFR 95, Est GFR ( Amer) 115, Glucose 93, Calcium 9.0 D I & O for Last 24 hours: Intake & Output 06/20/18 06/21/18 06/22/18 06/23/18 11:59 11:59 11:59 11:59 Intake Total 840 / 673.965 0032.167 / 2309.167 2463 / 2463 Output Total 1850 / 1850 1750 / 1750 200 / 200 Balance -1010 / -925.833 319.167 / 919.685 2579 / 2263 Weight 100 lb 98 lb 9 oz 98 lb 9 oz Microbiology Reports for the Last 24 Hours: Microbiology 06/20/18 11:04 Urine,Catheterized Urine Culture - Final Escherichia coli Escherichia coli#2 06/20/18 11:51 Blood Blood Culture - Preliminary NO GROWTH AFTER 48 HOURS 06/20/18 10:55 Blood Blood Culture - Preliminary NO GROWTH AFTER 48 HOURS - Constitutional no acute distress - *Routine Respiratory Exam Present: CTA bilaterally - *Routine Cardiovascular Exam Present: RRR - *Routine Abdominal Exam Present: soft, normoactive bowel sounds. Absent: tenderness - *Routine Extremities Exam Absent: cyanosis, clubbing, edema - *Routine Skin Exam Present: warm. Absent: rash - *Routine Neurological Exam Present: alert, oriented X3 Assessment and Plan (1) Recurrent seizures Current visit: Yes Status: Acute Category: Medical Code(s): G40.909 - Epilepsy, unspecified, not intractable, without status epilepticus (2) Positive blood culture Current visit: Yes Status: Acute Category: Medical Code(s): R78.81 - Bacteremia (3) Gastritis Current visit: Yes Status: Chronic Category: Medical Code(s): K29.70 - Gastritis, unspecified, without bleeding (4) Duodenal ulcer Current visit: Yes Status: Chronic Category: Medical Code(s): K26.9 - Duodenal ulcer, unspecified as acute or chronic, without hemorrhage or perforation (5) Antral ulcer Current visit: Yes Status: Chronic Category: Medical Code(s): K25.9 - Gastric ulcer, unspecified as acute or chronic, without hemorrhage or perforation (6) Alcoholism Current visit: Yes Status: Chronic Category: Medical Code(s): F10.20 - Alcohol dependence, uncomplicated (7) UTI (urinary tract infection) Current visit: Yes Status: Acute Category: Medical Code(s): N39.0 - Urinary tract infection, site not specified (8) Anemia Current visit: No Status: Chronic Category: Medical Code(s): D64.9 - Anemia, unspecified (9) Hyponatremia Current visit: No Status: Acute Category: Medical Code(s): E87.1 - Hypo-osmolality and hyponatremia (10) Low body mass index (BMI) Current visit: No Status: Acute Category: Medical (11) Cardiomyopathy Current visit: No Status: Chronic Category: Medical Code(s): I42.9 - Cardiomyopathy, unspecified (12) Hypothyroidism Current visit: No Status: Chronic Category: Medical Code(s): E
--- NOTE | 2018-06-23 08:23 | P.PN_ITS ---
<Zeny Day - Last Filed: 06/23/18 08:18> Internal Medicine - PN: Subj *Date: 06/23/18 *Time: 08:18 Interval history: Patient states she is feeling well this morning. She does have some pain in her feet. She states she did not rest well last night and can never sleep when she is in the hospital. She has not eaten breakfast yet this morning. Exam Vital signs and Labs for Last 24 Hours: Temp Pulse Resp BP Pulse Ox 98.3 F 87 17 139/80 95 06/23/18 07:50 06/23/18 07:50 06/23/18 07:50 06/23/18 07:50 06/23/18 07:50 Laboratory Results - last 24 hr 06/23/18 06:55: WBC 6.8, RBC 2.66 L, Hgb 9.4 L, Hct 27.7 L, MCV 104.1 H, MCH 35.3 H, MCHC 33.9, RDW 16.0, Plt Count 158, MPV 7.7, Neut % (Auto) 64.8, Lymph % (Auto) 26.2, [place] % (Auto) 6.9, Eos % (Auto) 2.0, Baso % (Auto) 0.2, Neut # (Auto) 4.4, Lymph # (Auto) 1.8, [place] # (Auto) 0.5, Eos # (Auto) 0.1, Baso # (Auto) 0.0 06/23/18 06:55: Sodium 131 L, Potassium 3.4 L D, Chloride 97 L, Carbon Dioxide 29, Anion Gap 8.4, BUN 10 D, Creatinine 0.63, Estimated Creat Clear 40, Estimated GFR 95, Est GFR ( Amer) 115, Glucose 93, Calcium 9.0 D I & O for Last 24 hours: Intake & Output 06/20/18 06/21/18 06/22/18 06/23/18 11:59 11:59 11:59 11:59 Intake Total 840 / 708.846 2381.167 / 2309.167 2463 / 2463 Output Total 1850 / 1850 1750 / 1750 200 / 200 Balance -1010 / -925.833 319.167 / 801.073 0343 / 2263 Weight 100 lb 98 lb 9 oz 98 lb 9 oz Microbiology Reports for the Last 24 Hours: Microbiology 06/20/18 11:04 Urine,Catheterized Urine Culture - Final Escherichia coli Escherichia coli#2 06/20/18 11:51 Blood Blood Culture - Preliminary NO GROWTH AFTER 48 HOURS 06/20/18 10:55 Blood Blood Culture - Preliminary NO GROWTH AFTER 48 HOURS - Constitutional no acute distress - *Routine Respiratory Exam Present: CTA bilaterally - *Routine Cardiovascular Exam Present: RRR - *Routine Abdominal Exam Present: soft, normoactive bowel sounds. Absent: tenderness - *Routine Extremities Exam Absent: cyanosis, clubbing, edema - *Routine Skin Exam Present: warm. Absent: rash - *Routine Neurological Exam Present: alert, oriented X3 Assessment and Plan (1) Recurrent seizures Current visit: Yes Status: Acute Category: Medical Code(s): G40.909 - Epilepsy, unspecified, not intractable, without status epilepticus (2) Positive blood culture Current visit: Yes Status: Acute Category: Medical Code(s): R78.81 - Bacteremia (3) Gastritis Current visit: Yes Status: Chronic Category: Medical Code(s): K29.70 - Gastritis, unspecified, without bleeding (4) Duodenal ulcer Current visit: Yes Status: Chronic Category: Medical Code(s): K26.9 - D uodenal ulcer, unspecified as acute or chronic, without hemorrhage or perforation (5) Antral ulcer Current visit: Yes Status: Chronic Category: Medical Code(s): K25.9 - Gastric ulcer, unspecified as acute or chronic, without hemorrhage or perforation (6) Alcoholism Current visit: Yes Status: Chronic Category: Medical Code(s): F10.20 - Alcohol dependence, uncomplicated (7) UTI (urinary tract infection) Current visit: Yes Status: Acute Category: Medical Code(s)
--- NOTE | 2018-06-23 09:54 | DIET.NUTRFU ---
Pt is on a regular diet with chopped meats. Pt PO intake has varied during admission, but pt with fair appetite. PO intake 55% average at last five meals. Pt is receiving Ensure TID to help supplement diet. WIll continue with current plan of care and monitor.
--- NOTE | 2018-06-23 11:07 | HMH.PHAINT ---
DISCHARGE COUNSELING PROVIDED TO PATIENT FOR ALL MEDICATIONS. DISCUSSED NEW MEDICATIONS FOR KEPPRA AND CEFTIN. PATIENT VERBALIZED UNDERSTANDING AND DID NOT HAVE ANY QUESTIONS.
--- NOTE | 2018-06-23 11:33 | SW/DCPLANNER ---
RECEIVED REFERRAL FOR HOME HEALTH SERVICES FOR THIS PATIENT: PATIENT LEFT HOSPITAL AND I CALLED HER AND SHE WISHES TO USE [facility]... I HAVE SENT REFERRAL TO [facility] AND ASKED FOR SERVICES TO START IN THE AM...
--- NOTE | 2018-06-23 12:33 | HMH.DCSUM ---
General - General Admission date:: 06/20/18 Discharge date: 06/23/18 HPI HPI: Mr. Ramirez is a 62-year-old female recently discharged from [facility] on June 18, 2018 after 5-day stay with diagnoses of hypotension, pneumonia, (possibly aspiration ), vomiting, hypo-magnesium, hyponatremia, seizures, cardiomyopathy, hypothyroidism, anemia, and newly diagnosed per EGD per Dr. Zuñiga, gastritis and antral and duodenal ulcers who was brought to [facility] emergency room after apparently having additional seizures at home. Patient is lethargic this morning and is unable to answer questions. History is obtained from emergency room record. With evaluation in the emergency room CT of the head showed no acute pathology. Chest x-ray showed almost resolved pneumonia. Patient was then admitted for further evaluation and treatment. She was felt to have a urinary tract infection. After admission patient did have seizure activity and was given IV Ativan as well as IV Keppra. She had no further seizures during the night and remains very lethargic this morning. During patient hospitalization June 13 through June 18, 2018 patient's sodium was low and renal failure function was elevated. lactic acid was also elevated. Chest x-ray did show a right middle lobe infiltrate. CT of the head showed nothing acute. She received IV fluids with boluses for her hypotension and was started on IV antibiotics. She was felt to have some adrenal insufficiency and was started on p.o. steroids. Hemoglobin did begin to decrease and she was found to have heme positive stool. Dr. Escudero performed an EGD and patient was found to have a moderate to severe patchy gastritis, shallow nonbleeding antral ulcer, and a shallow nonbleeding duodenal bulb ulcer with no signs of active hemorrhage. Patient was started on Protonix and Carafate. After the EGD she was stable and able to tolerate her diet without any nausea. She was ambulating in the room and she was discharged home. She had no further seizures after admission. To note blood cultures at discharge revealed gram-positive bacillus and was sent to [facility] for ID. Hospital Course Hospital Course: Patientis 's head CT showed prominent cortical atrophy. The patient's chest x-ray showed mild to moderate COPD and an almost completely resolved right middle lobe pneumonia. The patient was given IV Ativan and started on IV Keppra. She was given IV potassium and IV magnesium as well. She was started on IV fluids and IV antibiotics. She had no further seizure activity. Her Keppra was continued. Her urine culture grew out E. coli which was sensitive to the cefepime. Preliminary blood cultures were negative. She was stable to be discharged home on Keppra and Ceftin and will follow-up with Dr. Pagan on 06/30/2018. Objective Vital signs: Temp Pulse Resp BP Pulse Ox 98.3 F 87 17 139/80 95 06/23/18 07:50 06/23/18 07:50 06/23/18 07:50 06/23/18 07:50 06/23/18 07:50 Narrative: - Constitutional no acute distress Comments: Lethargic. Unable to assist with exam - *Routine HEENT Exam ENT: Present: mucous membranes moist - *Routine Respiratory Exam Comments: Few bibasilar crackles - *Routine Cardiovascular Exam Present: RRR - *Routine Abdominal Exam Present: soft, normoactive bowel sounds. Absent: tenderness, distended - *Routine Extremities Exam Absent: edema, calf tenderness - *Routine Neurological Exam Difficulty to awaken. She does answer some questions with yes or no and then drifts back off to sleep Results Labs on day of discharge: Labs from last 24 hours 06/23/18 06/23/18 06:55 06:55 WBC 6.8 RBC 2.66 L Hgb 9.4 L Hct 27.7 L MCV 104.1 H MCH 35.3 H MCHC 33.9 RDW 16.0 Plt Count 158 MPV 7.7 Neut % (Auto) 64.8 Lymph % (Auto) 26.2 Wake % (Auto) 6.9 Eos % (Auto) 2.0 Baso % (Auto) 0.2
--- NOTE | 2018-06-23 12:37 | P.DS_ITS ---
General - General Admission date:: 06/20/18 Discharge date: 06/23/18 HPI HPI: Mr. Ramirez is a 62-year-old female recently discharged from [facility] on June 18, 2018 after 5-day stay with diagnoses of hypotension, pneumonia, (possibly aspiration ), vomiting, hypo-magnesium, hyponatremia, seizures, cardiomyopathy, hypothyroidism, anemia, and newly diagnosed per EGD per Dr. Zuñiga, gastritis and antral and duodenal ulcers who was brought to [facility] emergency room after apparently having additional seizures at home. Patient is lethargic this morning and is unable to answer questions. History is obtained from emergency room record. With evaluation in the emergency room CT of the head showed no acute pathology. Chest x-ray showed almost resolved pneumonia. Patient was then admitted for further evaluation and treatment. She was felt to have a urinary tract infection. After admission patient did have seizure activity and was given IV Ativan as well as IV Keppra. She had no further seizures during the night and remains very lethargic this morning. During patient hospitalization June 13 through June 18, 2018 patient's sodium was low and renal failure function was elevated. lactic acid was also elevated. Chest x-ray did show a right middle lobe infiltrate. CT of the head showed nothing acute. She received IV fluids with boluses for her hypotension and was started on IV antibiotics. She was felt to have some adrenal insufficiency and was started on p.o. steroids. Hemoglobin did begin to decrease and she was found to have heme positive stool. Dr. Escudero performed an EGD and patient was found to have a moderate to severe patchy gastritis, shallow nonbleeding antral ulcer, and a shallow nonbleeding duodenal bulb ulcer with no signs of active hemorrhage. Patient was started on Protonix and Carafate. After the EGD she was stable and able to tolerate her diet without any nausea. She was ambulating in the room and she was discharged home. She had no further seizures after admission. To note blood cultures at discharge revealed gram-positive bacillus and was sent to [facility] for ID. Hospital Course Hospital Course: Patientis 's head CT showed prominent cortical atrophy. The patient's chest x- ray showed mild to moderate COPD and an almost completely resolved right middle lobe pneumonia. The patient was given IV Ativan and started on IV Keppra. She was given IV potassium and IV magnesium as well. She was started on IV fluids and IV antibiotics. She had no further seizure activity. Her Keppra was continued. Her urine culture grew out E. coli which was sensitive to the cefepime. Preliminary blood cultures were negative. She was stable to be discharged home on Keppra and Ceftin and will follow-up with Dr. Pagan on 06/30/2018. Objective Vital signs: Temp Pulse Resp BP Pulse Ox 98.3 F 87 17 139/80 95 06/23/18 07:50 06/23/18 07:50 06/23/18 07:50 06/23/18 07:50 06/23/18 07:50 Narrative: - Constitutional no acute distress Comments: Lethargic. Unable to assist with exam - *Routine HEENT Exam ENT: Present: mucous membranes moist - *Routine Respiratory Exam Comments: Few bibasilar crackles - *Routine Cardiovascular Exam Present: RRR - *Routine Abdominal Exam Present: soft, normoactive bowel sounds. Absent: tenderness, distended - *Routine Extremities Exam Absent: edema, calf tenderness - *Routine Neurological Exam Difficulty to a
== END 2018-06-23 11:32 | disposition home health service (06) | DRG 101 ==
LOC: ER 13:27 → 2ND 13:41
PROVIDERS: Nurse Practitioner Family; Admitting Provider Family Medicine; Emergency Provider Emergency Medicine; PCP Family Medicine; Visit Provider Family Medicine
DX: G40.909 Epilepsy, unspecified, not intractable, without status epilepticus (principal); N39.0 Urinary tract infection, site not specified; I42.9 Cardiomyopathy, unspecified; B96.20 Unspecified Escherichia coli [E. coli] as the cause of diseases classified elsewhere; I10 Essential (primary) hypertension; Z72.0 Tobacco use; Z95.0 Presence of cardiac pacemaker; D64.9 Anemia, unspecified; E03.9 Hypothyroidism, unspecified; J44.9 Chronic obstructive pulmonary disease, unspecified; F10.20 Alcohol dependence, uncomplicated
CPT/HCPCS: 36415; 70450; 71045; 80048; 80053; 80076; 80305; 81001; 83605; 83735; 85025; 87040; 87086; 87088; 87186; 93005; 94761; 95816; 96365; 96367; 99285; G0378; J0692

== ENCOUNTER 2018-07-31 13:44 | Observation (INO) ==
--- NOTE | 2018-07-31 13:56 | Emergency Department Note ---
ED Disposition Clinical Impression: COPD (chronic obstructive pulmonary disease), Alcoholism, Tobacco use disorder, Hypomagnesemia Disposition: Still a Patient Condition on Discharge: Fair Referrals: Provider,Referral, [Referring] - - Critical Care Critical Care Time: No Attestation: On , the high probability of a clinically significant, sudden or life threatening deterioration of the following system(s) required my full and direct attention, intervention and personal management. The time I documented below is in addition to time spent performing reported procedures but includes the following listed in this critical care notation. Medical Decision Making - Juan José Inquiry Pt receiving controlled substance: No Juan José was queried for this patient: No Vital Signs: 07/31/18 13:44 07/31/18 15:20 07/31/18 16:34 Temperature 97.5 F L 97.7 F Temperature Source Oral Oral Pulse Rate [Right Radial] 113 H 111 H 110 H Respiratory Rate 22 Blood Pressure [Right Arm] 142/69 H 141/88 H 144/87 H Blood Pressure Mean [Right Arm] 93 105 106 Blood Pressure Source [Right Arm] Manual Cuff/ Doppler Automatic Cuff Automatic Cuff Blood Pressure Position [Right Arm] Sitting Sitting Sitting 02 Sat by Pulse Oximetry 98 100 100 Oxygen Delivery Method Room Air Nasal Cannula Room Air Oxygen Flow Rate (LPM) 3 07/31/18 17:48 Temperature Temperature Source Pulse Rate [Right Radial] 117 H Respiratory Rate Blood Pressure [Right Arm] 141/74 H Blood Pressure Mean [Right Arm] 96 Blood Pressure Source [Right Arm] Automatic Cuff Blood Pressure Position [Right Arm] Sitting 02 Sat by Pulse Oximetry 95 Oxygen Delivery Method Room Air Oxygen Flow Rate (LPM) - Lab Data Lab Results 07/31/18 14:05: WBC 10.2, RBC 3.63 L, Hgb 11.4 L, Hct 35.6 L, MCV 98.1, MCH 31.4 H, MCHC 32.0, RDW 15.1, Plt Count 132 L, MPV 7.4, Neut % (Auto) 80.2 H, Lymph % (Auto) 13.2, [place] % (Auto) 6.1, Eos % (Auto) 0.3, Baso % (Auto) 0.2, Neut # (Auto) 8.1 H, Lymph # (Auto) 1.3, [place] # (Auto) 0.6, Eos # (Auto) 0.0, Baso # (Auto) 0.0 07/31/18 14:05: Sodium 137, Potassium 3.6, Chloride 99, Carbon Dioxide 19 L, Anion Gap 22.6 H, BUN 14, Creatinine 0.85, Estimated Creat Clear 40, Estimated GFR 67, Est GFR ( Amer) 81, Glucose 69 L, Calcium 8.7, Total Bilirubin 0.8, AST 33, ALT 16, Alkaline Phosphatase 51, Troponin I < 0.02, Total Protein 6.9, Albumin 3.5, Globulin 3.4 H, Albumin/Globulin Ratio 1.0 L, Plasma/Serum Alcohol 0 07/31/18 14:05: Lactate 1.2 07/31/18 14:05: Magnesium 0.5 L 07/31/18 14:05: D-Dimer 1590 H* 07/31/18 14:05: B-Natriuretic Peptide 151 H Result diagrams: 07/31/18 14:05 07/31/18 14:05 Orders (Tests/Meds): ED MEDICATIONS Discontinued Medications Generic Name Dose Route Start Last Admin Trade Name Markos PRN Reason Stop Dose Admin Folic Acid 1 mg 07/31/18 14:30 07/31/18 14:47 Folic Acid 1mg Tablet PO 07/31/18 14:31 1 mg ONCE ONE Administration Magnesium Sulfate 2 gm/ 1,015 mls @ 333 mls/hr 07/31/18 14:30 07/31/18 14:47 Thiamine HCl 100 mg/ IV 07/31/18 17:32 333 mls/hr Multivitamins 10 ml/ Lactated ONCE ONE Administration Ringer's Ioversol 70 ml 07/31/18 17:22 07/31/18 17:23 Rad-Optiray 350 100ml Vial IV 07/31/18 17:23 70 ml ONCE ONE Administration Protocol Sodium Chloride 50 ml 07/31/18 17:22 07/31/18 17:22 Rad-Ns 50ml Vial IV 07/31/18 17:23 50 ml ONCE ONE Administration Sodium Chloride 10 ml 07/31/18 17:22 07/31/18 17:22 Rad-Saline Flush 10ml Syringe IV 07/31/18 17:23 10 ml ONCE ONE Administration ORDERS Category Date Time Status CT Chest w/PE protocol [CT angio chest] Stat Cat Scan 07/31/18 14:55 Taken XR chest portable Stat Exams 07/31/18 13:45 Taken B12 level [Vitamin B12] Stat Lab 07/31/18 14:05 Received Drug Screen,Urine Stat Lab 07/31/18 13:51 Ordered Folate, RBC Stat Lab 07/31/18 14:05 Received UA [Urinalysis and Microscopic] Stat Lab 07/31/18 13:52 Ordered Blood Culture Stat Micro 07/31/18 14:05 Received - Radiology Data #1 Image(s): Chest Image Reviewed: Yes I reviewed the patient's radiology image Preliminary Findings: Abnormal Stop changes no acute findings. - CT Data CT Scan: Chest Time Received: 18:[address] Reviewed: Yes: I have viewed the radiologist's interpretation Preliminary Findings: Abnormal - ECG Data Tracing #1 Baseline artifact, paced rhythm, 108/min ECG initial impression date: 07/31/18 ECG initial impression time: 14:45 Medical Decision Narrative: I discussed the patient with Dr. Retana who is very familiar with her clinical and social situation, agreed to admit her for magnesium replacement and COPD treatment. I contacted her son and inform him that he need to come but he is in [facility]. Medical power of videotape editor is not in the hospital. Resp/SOB HPI - General Stated Complaint: SOA, ETOH Time Seen by Provider: 07/31/18 13:45 Mode of Arrival: EMS Limitations: No Limitations Description of Symptoms (Recalled from ER Triage Doc. by RN): Pt c/o feeling SOA, per EMS report pt was anxious upon their arrival. Pt reported to EMS that she has drank a fifth of vodka today. Pt is home O2 dependent at 2L per [place] - History of Present Illness 62 years old white female with history of COPD oxygen dependent and alcoholism. The patient has been drinking this morning and went off her oxygen, she contacte d EMS service and upon arrival she complained of shortness of breath, she was in no respiratory distress and she was found to have oxygen saturation above 90 %. she denies having fever chills productive sputum nausea vomiting diarrhea dysuria or hematuria. Upon arrival to the ED the patient was receiving a DuoNeb treatment oxygen saturation is above 100% clear to auscultation in no cardiopulmonary distress. MD Complaint: shortness of breath Onset (ago): hour(s) Severity: mild Consistency/Duration: constant Relieving factors: oxygen, bronchodilators Exacerbating factors: movement Known history of: COPD Associated symptoms: denies other symptoms - Related Data Home oxygen amount: 2 liters Home Medications Medication Instructions Recorded Confirmed RX: Spironolactone 25 mg PO DAILY 04/27/18 06/30/18 RX: Levothyroxine Sodium 150 mcg PO DAILY 06/13/18 06/30/18 [Synthroid 150mcg (0.15mg) tablet] RX: Albuterol Sulfate [Albuterol 2 puffs IH QIDP PRN 06/14/18 06/30/18 HFA Inhaler] RX: Cholecalciferol (Vitamin D3) 2,000 units PO DAILY 06/14/18 06/30/18 [Vitamin D3] RX: Estradiol 1 mg PO DAILY 06/14/18 06/30/18 RX: Ferrous Sulfate 325 mg PO BID 06/14/18 06/30/18 RX: Oxybutynin Chloride [Ditropan 5 mg PO TID 06/14/18 06/30/18 5mg tablet] RX: Raloxifene HCl 60 mg PO DAILY 06/14/18 06/30/18 RX: Sertraline HCl [Zoloft] 100 mg PO BID 06/14/18 06/30/18 Previous Rx's Medication Instructions Recorded RX: Carvedilol [Coreg 6.25mg 6.25 mg PO BID #60 tab 06/18/18 Tablet] RX: Gabapentin [Neurontin 100mg 100 mg PO TID #90 cap 06/18/18 cap] RX: Sucralfate [Carafate 1gm 2 gm PO BID #120 tab 06/18/18 Tab] RX: predniSONE [Deltasone 20mg 20 mg PO DAILY #20 tab 06/18/18 tablet] cefUROXime axetil [Ceftin 500mg 500 mg PO BID #14 tab 06/23/18 Tab (GEQ)] levETIRAcetam [Keppra 500mg tablet] 500 mg PO BID #60 tab 06/23/18 Allergies Allergy/AdvReac Type Severity Reaction Status Date / Time lisinopril [LISINOPRIL] Allergy Severe S-SWELLS-OR Verified 06/30/18 11:15 AL/THROAT Penicillins [PENICILLINS] Allergy Severe S-SWELLS-OR Verified 06/30/18 11:15 AL/THROAT Sulfa (Sulfonamide Allergy Severe S-SKIN Verified 06/30/18 11:15 Antibiotics) ERUPTIONS [SULFA (SULFONAMIDE ANTIBIOTICS)] sulfamethoxazole Allergy Severe S-SKIN Verified 06/30/18 11:15 [From BACTRIM] ERUPTIONS trimethoprim [From BACTRIM] Allergy Severe S-SKIN Verified 06/30/18 11:15 ERUPTIONS latex [LATEX] Allergy Intermediate I-RASH Verified 06/30/18 11:15 metronidazole AdvReac Severe Gastrointestinal Verified 06/30/18 11:15 Upset BANANAS (FOOD) Allergy Severe THROAT Uncoded 06/30/18 11:15 SWELLS [facility] History - Hepatitis A Screen Drug use history?: No High risk sexual behaviors?: No History of sexually transmitted infection?: No Currently employed?: No Childcare worker?: No Do you have indoor plumbing?: Yes Do you have electricity?: Yes Attestation statement:: This patient has been screened for Hepatitis A risk factors. I have reviewed the patient's past medical history: Yes Medical History: Reports:: Anxiety, Cancer, Cardiomyopathy, Chronic Obstructive Pulmonary Disease (COPD), Depression, Hypertension, Internal Pacemaker, Seizures Denies:: Diabetes Mellitus Type 1, Diabetes Mellitus Type 2, MRSA Other Medical History: Reports: Anemia, Hypothyroidism, Thyroid Disease Comment: Peripheral neuropathy, Home 02 Laterality Cases: Other Surgeries: Yes: Cancer Surgery, Colon Resection, Hysterectomy-Total, Pacemaker, Other Amputation: No Fractures: No Comment: Bottom teeth extracted; left radical neck dissection 04/29/2011; exploratory laparotomy with right colon 05/07/2011; I&D of left neck 05/08/2011; biopsy on jaw 2011 bilateral left March 2015, breast implants - Social History Smoking Status: Current every day smoker Tobacco Type: cigarettes # Packs/Day (cigarettes): 3 Alcohol Intake: current Alcohol Intake Frequency:: 3 or more drinks per day Occupational Status: disabled Housing: house - Psychiatric History Pschychiatric History:: Reports:: Anxiety, Depression Family Hx:: Cancer, Hyperlipidemia, Hypertension ROS Obtained: Yes All systems reviewed & no additional complaints Physical Exam - General General appearance: alert, in no apparent distress - Head Head exam: atraumatic, normocephalic, normal inspection - Eye Eye exam: Present: normal appearance, PERRL, EOMI - ENT ENT exam: Present: normal exam, normal oropharynx, mucous membranes moist, TM's normal bilaterally, normal external ear exam - Neck Neck exam: Present: normal inspection, full ROM, trachea midline. Absent: meningismus, lymphadenopathy - Chest Chest inspection: Present: normal inspection, symmetric chest wall rise. Absent: tenderness - Respiratory Respiratory exam: Present: normal lung sounds bilaterally. Absent: respiratory distress - Cardiovascular Cardiovascular exam: Present: regular rate, normal rhythm. Absent: JVD - Abdominal Exam Abdominal exam: Present: soft, normal bowel sounds. Absent: distention, tenderness, guarding - Extremities Exam Extremities exam: Present: normal inspection, full ROM, normal capillary refill. Absent: calf tenderness - Back Exam Back exam: Present: normal inspection. Absent: tenderness - Neurological Exam Neurological exam: Present: alert, oriented X3 - Psychiatric Psychiatric exam: Present: normal affect, normal mood - Skin Skin exam: Present: warm, dry, intact, normal color - Lymphatic Lymphatic Findings: no adenopathy
[2018-07-31 14:27] LABS: Basophils % 0.2 % (0.1-2.0); Eosinophils % 0.3 % (0.1-12.0); Hematocrit 35.6 % (37.0-47.0); Hemoglobin 11.4 g/dL (12.2-16.2); Lymphocytes # 1.3 K/mm3 (0.7-4.5); Lymphocytes % 13.2 % (10-50); Mean Corpuscular Volume 98.1 fl (81-99); Mean Platelet Volume 7.4 fl (7.4-10.4); Monocytes # 0.6 K/mm3 (0.1-1.0); Monocytes % 6.1 % (1.7-9.3); Neutrophils # 8.1 K/mm3 (1.8-7.8); Neutrophils % 80.2 % (37.0-80.0); Platelet Count 132 K/mm3 (142-424); Red Blood Count 3.63 M/mm3 (4.20-5.40); Red Cell Distribution Width 15.1 % (11.5-17.5); White Blood Count 10.2 K/mm3 (4.8-10.8)
[2018-07-31 14:33] LABS: Alanine Aminotransferase 16 U/L (12-78); Albumin Level 3.5 gm/dL (3.4-5.0); Alkaline Phosphatase 51 U/L (46-116); Anion Gap 22.6 mEq/L (5-15); Aspartate Amino Transferase 33 U/L (15-37); Bilirubin,Total 0.8 mg/dL (0.2-1.0); Blood Urea Nitrogen 14 mg/dL (7-18); Calcium 8.7 mg/dL (8.5-10.1); Carbon Dioxide 19 mmol/L (21.0-32.0); Chloride 99 mmol/L (98-107); Globulin 3.4 gm/dl (1.3-3.2); Glucose 69 mg/dL (74-106); Sodium 137 mmol/L (136-145); Total Protein,Serum 6.9 gm/dL (6.4-8.2)
[2018-07-31 14:35] LABS: Ethyl Alcohol 0 mg/dL (0-99)
[2018-08-01 07:32] LABS: Basophils % 0.4 % (0.1-2.0); Eosinophils # 0.2 K/mm3 (0.0-0.4); Eosinophils % 3.1 % (0.1-12.0); Hematocrit 33.5 % (37.0-47.0); Hemoglobin 10.6 g/dL (12.2-16.2); Lymphocytes # 1.6 K/mm3 (0.7-4.5); Lymphocytes % 23.6 % (10-50); Mean Corpuscular HGB Conc 31.6 g/dL (31.8-35.4); Mean Corpuscular Volume 98.6 fl (81-99); Mean Platelet Volume 7.5 fl (7.4-10.4); Monocytes # 0.3 K/mm3 (0.1-1.0); Monocytes % 5.1 % (1.7-9.3); Neutrophils # 4.5 K/mm3 (1.8-7.8); Neutrophils % 67.8 % (37.0-80.0); Platelet Count 119 K/mm3 (142-424); White Blood Count 6.7 K/mm3 (4.8-10.8)
[2018-08-01 07:39] LABS: INR 1.02 (0.9-1.1); Prothrombin Time 10.6 seconds (9.4-11.8)
[2018-08-01 07:40] LABS: Calcium 8.1 mg/dL (8.5-10.1)
--- NOTE | 2018-08-01 09:50 | History & Physical Report ---
*Admission Date: 07/31/18 *Chief complaint: Shortness of breath *History of present illness: 62 year old female patient of Dr. Pagan'sejal brought to [facility] ER yesterday by EMS due to shortness of breath. Patient had been seen in the office of [facility] the day before and was diagnosed with a COPD exacerbation. She was prescribed Prednisone and Levaquin. Patient's breathing did not improve and she called 911 for further assistance. EMS reported patient had drank some whiskey yesterday morning and was not using her supplemental oxygen when they arrived. She was tachypneic and wheezing. Her O2 sat was in the 80's. She was given a neb treatment and then brought to the ER. [facility] History Medical History: Reports:: Anxiety, Cancer, Cardiomyopathy, Congestive Heart Failure (alcohol induced), Chronic Obstructive Pulmonary Disease (COPD), Depression, Home Oxygen, Hypertension, Internal Pacemaker, Seizures Denies:: Diabetes Mellitus Type 1, Diabetes Mellitus Type 2, MRSA *Have you ever received a pneumonia vaccine?: Yes *Have you received a flu vaccine this season?: Yes Other Medical History: Reports: Anemia, Hormone Therapy, Hypothyroidism, Thyroid Disease, Other (seizure disorder, cirrhosis) Laterality Cases: Bilateral: Myringotomy (Ear Tubes) Other Surgeries: Yes: Cancer Surgery, Colon Resection, Hysterectomy-Total, Pacemaker, Other Amputation: No Fractures: No - *Social History Educational Level: Attended High School Smoking Status: Current every day smoker Tobacco Type: cigarettes # Packs/Day (cigarettes): 2 Alcohol Intake: current Alcohol Intake Frequency:: 3 or more drinks per day *Occupational Status:: disabled Housing: house *Travel in the last 8 weeks: None - Psychiatric History Expresses thoughts of harming self/others: None Suicide Plan Description: No Plan Pschychiatric History:: Reports:: Anxiety, Depression Family Hx:: Cancer (colon) Review of Systems - Constitutional Denies chills - Eyes Denies blurry vision - ENT Denies bleeding gums - *Cardiovascular Denies chest pain - *Gastrointestinal Denies abdominal pain - *Genitourinary Denies difficulty urinating - *Musculoskeletal Denies joint swelling - Integumentary/Breasts Denies rash - *Neurologic Denies dizziness - Psychiatric Reports confusion Meds Home Medications Medication Instructions Recorded Confirmed Type Spironolactone 25 mg PO DAILY 04/27/18 07/31/18 History Levothyroxine Sodium [Synthroid 150 mcg PO DAILY 06/13/18 07/31/18 History 150mcg (0.15mg) tablet] Albuterol Sulfate [Albuterol HFA 2 puffs IH QIDP PRN 06/14/18 07/31/18 History Inhaler] Cholecalciferol (Vitamin D3) 2,000 units PO DAILY 06/14/18 07/31/18 History [Vitamin D3] Estradiol 1 mg PO DAILY 06/14/18 07/31/18 History Ferrous Sulfate 325 mg PO BID 06/14/18 07/31/18 History Oxybutynin Chloride [Ditropan 5mg 5 mg PO TID 06/14/18 07/31/18 History tablet] Raloxifene HCl 60 mg PO DAILY 06/14/18 07/31/18 History Sertraline HCl [Zoloft] 100 mg PO BID 06/14/18 07/31/18 History Carvedilol [Coreg 6.25mg 6.25 mg PO BID #60 tab 06/18/18 07/31/18 Rx Tablet] Gabapentin [Neurontin 100mg 100 mg PO TID #90 cap 06/18/18 07/31/18 Rx cap] Sucralfate [Carafate 1gm Tab] 2 gm PO BID #120 tab 06/18/18 07/31/18 Rx predniSONE [Deltasone 20mg 20 mg PO DAILY #20 tab 06/18/18 07/31/18 Rx tablet] cefUROXime axetil [Ceftin 500mg 500 mg PO BID #14 tab 06/23/18 07/31/18 Rx Tab (GEQ)] levETIRAcetam [Keppra 500mg tablet] 500 mg PO BID #60 tab 06/23/18 07/31/18 Rx Allergies Allergy/AdvReac Type Severity Reaction Status Date / Time lisinopril [LISINOPRIL] Allergy Severe S-SWELLS-OR Verified 06/30/18 11:15 AL/THROAT Penicillins [PENICILLINS] Allergy Severe S-SWELLS-OR Verified 06/30/18 11:15 AL/THROAT Sulfa (Sulfonamide Allergy Severe S-SKIN Verified 06/30/18 11:15 Antibiotics) ERUPTIONS [SULFA (SULFONAMIDE ANTIBIOTICS)] sulfamethoxazole Allergy Severe S-SKIN Verified 06/30/18 11:15 [From BACTRIM] ERUPTIONS trimethoprim [From BACTRIM] Allergy Severe S-SKIN Verified 06/30/18 11:15 ERUPTIONS latex [LATEX] Allergy Intermediate I-RASH Verified 06/30/18 11:15 metronidazole AdvReac Severe Gastrointestinal Verified 06/30/18 11:15 Upset BANANAS (FOOD) Allergy Severe THROAT Uncoded 06/30/18 11:15 SWELLS Exam Vital signs and Labs for Last 24 Hours: Temp Pulse Resp BP Pulse Ox 97.9 F 86 16 148/82 H 100 08/01/18 08:00 08/01/18 08:00 08/01/18 08:00 08/01/18 08:00 08/01/18 08:00 Laboratory Results - last 24 hr 07/31/18 14:05: WBC 10.2, RBC 3.63 L, Hgb 11.4 L, Hct 35.6 L, MCV 98.1, MCH 31.4 H, MCHC 32.0, RDW 15.1, Plt Count 132 L, MPV 7.4, Neut % (Auto) 80.2 H, Lymph % (Auto) 13.2, Swain % (Auto) 6.1, Eos % (Auto) 0.3, Baso % (Auto) 0.2, Neut # (Auto) 8.1 H, Lymph # (Auto) 1.3, Swain # (Auto) 0.6, Eos # (Auto) 0.0, Baso # (Auto) 0.0 07/31/18 14:05: Sodium 137, Potassium 3.6, Chloride 99, Carbon Dioxide 19 L, Anion Gap 22.6 H, BUN 14, Creatinine 0.85, Estimated Creat Clear 40, Estimated GFR 67, Est GFR ( Amer) 81, Glucose 69 L, Calcium 8.7, Total Bilirubin 0.8, AST 33, ALT 16, Alkaline Phosphatase 51, Troponin I < 0.02, Total Protein 6.9, Albumin 3.5, Globulin 3.4 H, Albumin/Globulin Ratio 1.0 L, Plasma/Serum Alcohol 0 07/31/18 14:05: Lactate 1.2 07/31/18 14:05: Magnesium 0.5 L 07/31/18 14:05: D-Dimer 1590 H* 07/31/18 14:05: B-Natriuretic Peptide 151 H 08/01/18 06:14: WBC 6.7 D, RBC 3.40 L, Hgb 10.6 L, Hct 33.5 L, MCV 98.6, MCH 31.1, MCHC 31.6 L, RDW 15.0, Plt Count 119 L, MPV 7.5, Neut % (Auto) 67.8, Lymph % (Auto) 23.6, Swain % (Auto) 5.1, Eos % (Auto) 3.1, Baso % (Auto) 0.4, Neut # (Auto) 4.5, Lymph # (Auto) 1.6, Swain # (Auto) 0.3, Eos # (Auto) 0.2, Baso # (Auto) 0.0 08/01/18 06:14: PT 10.6, INR 1.02 08/01/18 06:14: Sodium 137, Potassium 3.0 L, Chloride 100, Carbon Dioxide 20 L, Anion Gap 20.0 H, BUN 8 D, Creatinine 0.65 D, Estimated Creat Clear 40, Estimated GFR 92, Est GFR ( Amer) 111 D, Glucose 60 L, Calcium 8.1 L, Magnesium 1.0 L D Vital Signs - 24 hr 07/31/18 13:44 07/31/18 15:20 07/31/18 16:34 Temperature 97.5 F L 97.7 F Pulse Rate Pulse Rate [Right Brachial] Pulse Rate [Right Radial] 113 H 111 H 110 H Respiratory Rate 22 Blood Pressure Blood Pressure [Right Arm] 142/69 H 141/88 H 144/87 H 02 Sat by Pulse Oximetry 98 100 100 07/31/18 17:48 07/31/18 19:06 07/31/18 19:41 Temperature 98 F Pulse Rate 79 Pulse Rate [Right Brachial] Pulse Rate [Right Radial] 117 H 106 H Respiratory Rate 20 Blood Pressure 120/70 Blood Pressure [Right Arm] 141/74 H 123/72 02 Sat by Pulse Oximetry 95 96 07/31/18 20:58 07/31/18 21:30 07/31/18 21:59 Temperature 98.0 F Pulse Rate 100 H Pulse Rate [Right Brachial] 108 H Pulse Rate [Right Radial] 108 H Respiratory Rate 20 20 Blood Pressure Blood Pressure [Right Arm] 156/80 H 02 Sat by Pulse Oximetry 99 99 08/01/18 00:00 08/01/18 04:00 08/01/18 04:55 Temperature 97.6 F 98.0 F Pulse Rate Pulse Rate [Right Brachial] 94 H 90 Pulse Rate [Right Radial] 88 Respiratory Rate 18 16 Blood Pressure Blood Pressure [Right Arm] 132/88 136/73 02 Sat by Pulse Oximetry 100 100 08/01/18 07:38 08/01/18 08:00 Temperature 97.9 F Pulse Rate Pulse Rate [Right Brachial] 86 Pulse Rate [Right Radial] Respiratory Rate 20 16 Blood Pressure Blood Pressure [Right Arm] 148/82 H 02 Sat by Pulse Oximetry 99 100 I & O for Last 24 hours: Intake & Output 07/29/18 07/30/18 07/31/18 08/01/18 23:59 23:59 23:59 23:59 Intake Total 350 / 350 452 / 452 Balance 350 / 350 452 / 452 Weight 98 lb 4 oz - Constitutional no acute distress, thin - *Routine HEENT Exam Head: Present: normocephalic Eye: Present: EOMI ENT: Present: mucous membranes moist - *Routine Neck Exam Present: supple. Absent: lymphadenopathy - *Routine Respiratory Exam Present: wheezes (rare, good air movement overall) - *Routine Cardiovascular Exam Present: RRR - *Routine Abdominal Exam Present: soft, normoactive bowel sounds, tenderness (minimal periumbilical). Absent: distended, rebound, guarding, firm - *Routine Extremities Exam Absent: cyanosis, clubbing, edema - *Routine Skin Exam Present: warm. Absent: rash - *Routine Neurological Exam Present: alert H&P: Result - Imaging and Cardiology Chest x-ray Status: Preliminary report (no pneumoia) CT scan - chest Status: Preliminary report (no PE or infiltrate) Assessment and Plan (1) COPD exacerbation Current visit: Yes Status: Acute Category: Medical Code(s): J44.1 - Chronic obstructive pulmonary disease with (acute) exacerbation (2) Non compliance w medication regimen Current visit: Yes Status: Acute Category: Medical Code(s): Z91.14 - Patient's other noncompliance with medication regimen (3) Seizure disorder Current visit: Yes Status: Acute Category: Medical Code(s): G40.909 - Epilepsy, unspecified, not intractable, without status epilepticus (4) Alcoholic cirrhosis of liver without ascites Current visit: Yes Status: Acute Category: Medical Code(s): K70.30 - Alcoholic cirrhosis of liver without ascites (5) Depression Current visit: Yes Status: Acute Category: Medical Code(s): F32.9 - Major depressive disorder, single episode, unspecified (6) Hypomagnesemia Current visit: Yes Status: Acute Category: Medical Code(s): E83.42 - Hypomagnesemia (7) Tobacco use disorder Current visit: Yes Status: Acute Category: Medical Code(s): F17.200 - Nicotine dependence, unspecified, uncomplicated (8) Alcoholism Current visit: Yes Status: Chronic Category: Medical Code(s): F10.20 - Alcohol dependence, uncomplicated (9) Hypokalemia Current visit: No Status: Acute Category: Medical Code(s): E87.6 - Hypokalemia (10) Low body mass index (BMI) Current visit: No Status: Acute Category: Medical (11) Anemia Current visit: No Status: Chronic Category: Medical Code(s): D64.9 - Anemia, unspecified (12) Cardiomyopathy Current visit: No Status: Chronic Category: Medical Code(s): I42.9 - Car diomyopathy, unspecified (13) Hypothyroidism Current visit: No Status: Chronic Category: Medical Code(s): E03.9 - Hypothyroidism, unspecified - Assessment and plan all Dx Assessment and Plan for all problems:: Patient admitted to [facility] due to failing outpatient treatment of her COPD exacerbation and low magnesium level. She seems to be a little better this morning. Plan to wean supplemental oxygen and continue antibiotics. Pt is on seizure and alcohol withdrawal precautions. The medication list in the H&P is incorrect and is unabled to be changed at this time.
--- NOTE | 2018-08-01 10:24 | Pharmacy Consult Notes ---
[facility] Pharmacy VTE Monitoring - Patient Demographics Admission date: 08/01/18 Report Date: 08/01/18 Time: Allergies/Adverse Reactions: Patient Allergies banana Allergy (Severe, Verified 08/01/18 10:18) Anaphylaxis lisinopril [LISINOPRIL] Allergy (Severe, Verified 06/30/18 11:15) Z-[id number]/THROAT Penicillins [PENICILLINS] Allergy (Severe, Verified 06/30/18 11:15) [id number]/THROAT Sulfa (Sulfonamide Antibiotics) [SULFA (SULFONAMIDE ANTIBIOTICS)] Allergy (Severe, Verified 06/30/18 11:15) S-SKIN ERUPTIONS sulfamethoxazole [From BACTRIM] Allergy (Severe, Verified 06/30/18 11:15) S-SKIN ERUPTIONS trimethoprim [From BACTRIM] Allergy (Severe, Verified 06/30/18 11:15) S-SKIN ERUPTIONS latex [LATEX] Allergy (Intermediate, Verified 06/30/18 11:15) I-RASH metronidazole Adverse Reaction (Severe, Verified 06/30/18 11:15) Gastrointestinal Upset Height: 1.7 m Weight: 44.565 kg Patient Problems: Current Active Problems (Updated 08/01/18 @ 10:02 by Jasmeet Retana MD) Alcoholism (Chronic) Hypomagnesemia (Acute) COPD (chronic obstructive pulmonary disease) (Acute) Tobacco use disorder (Acute) COPD exacerbation (Acute) Non compliance w medication regimen (Acute) Seizure disorder (Acute) Alcoholic cirrhosis of liver without ascites (Acute) Depression (Acute) - VTE Risk Labs: VTE Related Lab Results Hgb 10.6 g/dL (12.2-16.2) L 08/01/18 06:14 Hct 33.5 % (37.0-47.0) L 08/01/18 06:14 Plt Count 119 K/mm3 (142-424) L 08/01/18 06:14 PT 10.6 seconds (9.4-11.8) 08/01/18 06:14 INR 1.02 (0.9-1.1) 08/01/18 06:14 BUN 8 mg/dL (7-18) D 08/01/18 06:14 Creatinine 0.65 mg/dL (0.55-1.02) D 08/01/18 06:14 Estimated Creat Clear 40 mL/min (50-200) 08/01/18 06:14 Was VTE Risk Assessment Performed: Yes VTE Score: 8 VTE Risk Level: Moderate Risk - Prophylaxis Types of VTE Prophylaxis: TEDS Knee High (PANCHO HOSE ORDER PLACED) Location of Applied Device: Not Applicable
--- NOTE | 2018-08-01 10:58 | Pharmacy Consult Notes ---
[facility] Pharmacy VTE Monitoring - Patient Demographics Admission date: 08/01/18 Report Date: 08/01/18 Time: 10:58 Allergies/Adverse Reactions: Patient Allergies banana Allergy (Severe, Verified 08/01/18 10:18) Anaphylaxis lisinopril [LISINOPRIL] Allergy (Severe, Verified 06/30/18 11:15) [id number]/THROAT Penicillins [PENICILLINS] Allergy (Severe, Verified 06/30/18 11:15) I-QQOOHF-OHUU/THROAT Sulfa (Sulfonamide Antibiotics) [SULFA (SULFONAMIDE ANTIBIOTICS)] Allergy (Severe, Verified 06/30/18 11:15) S-SKIN ERUPTIONS sulfamethoxazole [From BACTRIM] Allergy (Severe, Verified 06/30/18 11:15) S-SKIN ERUPTIONS trimethoprim [From BACTRIM] Allergy (Severe, Verified 06/30/18 11:15) S-SKIN ERUPTIONS latex [LATEX] Allergy (Intermediate, Verified 06/30/18 11:15) I-RASH metronidazole Adverse Reaction (Severe, Verified 06/30/18 11:15) Gastrointestinal Upset Height: 1.7 m Weight: 44.565 kg Patient Problems: Current Active Problems (Updated 08/01/18 @ 10:02 by Jasmeet Retana MD) Alcoholism (Chronic) Hypomagnesemia (Acute) COPD (chronic obstructive pulmonary disease) (Acute) Tobacco use disorder (Acute) COPD exacerbation (Acute) Non compliance w medication regimen (Acute) Seizure disorder (Acute) Alcoholic cirrhosis of liver without ascites (Acute) Depression (Acute) - VTE Risk Labs: VTE Related Lab Results Hgb 10.6 g/dL (12.2-16.2) L 08/01/18 06:14 Hct 33.5 % (37.0-47.0) L 08/01/18 06:14 Plt Count 119 K/mm3 (142-424) L 08/01/18 06:14 PT 10.6 seconds (9.4-11.8) 08/01/18 06:14 INR 1.02 (0.9-1.1) 08/01/18 06:14 BUN 8 mg/dL (7-18) D 08/01/18 06:14 Creatinine 0.65 mg/dL (0.55-1.02) D 08/01/18 06:14 Estimated Creat Clear 40 mL/min (50-200) 08/01/18 06:14 Was VTE Risk Assessment Performed: Yes VTE Score: 8 VTE Risk Level: Moderate Risk - Prophylaxis Types of VTE Prophylaxis: TEDS Knee High (PANCHO HOSE ORDERED) Location of Applied Device: Not Applicable
[2018-08-02 07:08] LABS: Basophils % 0.4 % (0.1-2.0); Eosinophils # 0.4 K/mm3 (0.0-0.4); Hemoglobin 11.3 g/dL (12.2-16.2); Lymphocytes # 1.7 K/mm3 (0.7-4.5); Lymphocytes % 17.8 % (10-50); Mean Corpuscular HGB Conc 30.6 g/dL (31.8-35.4); Mean Corpuscular Volume 100.1 fl (81-99); Monocytes # 0.6 K/mm3 (0.1-1.0); Neutrophils # 6.8 K/mm3 (1.8-7.8); Neutrophils % 71.8 % (37.0-80.0); Platelet Count 133 K/mm3 (142-424); Red Cell Distribution Width 14.9 % (11.5-17.5); White Blood Count 9.4 K/mm3 (4.8-10.8)
[2018-08-02 07:13] LABS: Anion Gap 16.8 mEq/L (5-15); Calcium 7.6 mg/dL (8.5-10.1)
--- NOTE | 2018-08-02 07:36 | Progress Note ---
Internal Medicine - PN: Subj *Date: 08/02/18 *Time: 07:33 Interval history: Patient would like to go home. She denies chest pain and shortness of breath. She does have a cough that is productive at times. She has not been out of bed. She denies any stomach issues. She states she is voiding although incontinent. Exam Vital signs and Labs for Last 24 Hours: Temp Pulse Resp BP Pulse Ox 97.8 F 85 18 117/73 98 08/02/18 04:00 08/02/18 04:00 08/02/18 04:00 08/02/18 04:00 08/02/18 04:00 Laboratory Results - last 24 hr 07/31/18 14:05: Vitamin B12 324 08/01/18 06:14: WBC 6.7 D, RBC 3.40 L, Hgb 10.6 L, Hct 33.5 L, MCV 98.6, MCH 31.1, MCHC 31.6 L, RDW 15.0, Plt Count 119 L, MPV 7.5, Neut % (Auto) 67.8, Lymph % (Auto) 23.6, [place] % (Auto) 5.1, Eos % (Auto) 3.1, Baso % (Auto) 0.4, Neut # (Auto) 4.5, Lymph # (Auto) 1.6, [place]inger # (Auto) 0.3, Eos # (Auto) 0.2, Baso # (Auto) 0.0 08/01/18 06:14: PT 10.6, INR 1.02 08/01/18 06:14: Sodium 137, Potassium 3.0 L, Chloride 100, Carbon Dioxide 20 L, Anion Gap 20.0 H, BUN 8 D, Creatinine 0.65 D, Estimated Creat Clear 40, Estimated GFR 92, Est GFR ( Amer) 111 D, Glucose 60 L, Calcium 8.1 L, Magnesium 1.0 L D 08/02/18 06:45: WBC 9.4 D, RBC 3.70 L, Hgb 11.3 L, Hct 37.0, MCV 100.1 H, MCH 30.6, MCHC 30.6 L, RDW 14.9, Plt Count 133 L, MPV 8.0, Neut % (Auto) 71.8, Lymph % (Auto) 17.8, [place]inger % (Auto) 6.0, Eos % (Auto) 4.0, Baso % (Auto) 0.4, Neut # (Auto) 6.8, Lymph # (Auto) 1.7, Grainger # (Auto) 0.6, Eos # (Auto) 0.4, Baso # (Auto) 0.0 08/02/18 06:45: Sodium 135 L, Potassium 3.8 D, Chloride 100, Carbon Dioxide 22, Anion Gap 16.8 H, BUN 6 L, Creatinine 0.63, Estimated Creat Clear 40, Estimated GFR 95, Est GFR ( Amer) 115, Glucose 78, Calcium 7.6 L, Magnesium 1.2 L D I & O for Last 24 hours: Intake & Output 07/30/18 07/31/18 08/01/18 08/02/18 11:59 11:59 11:59 11:59 Intake Total 802 / 802 2127 Balance 802 / 802 2127 Weight 98 lb 4 oz - Constitutional no acute distress Comments: Sitting up in the bed trying to eat her breakfast. Head is dropped and she is drowsy. - *Routine Respiratory Exam Comments: Poor inspiratory effort. Congested cough - *Routine Cardiovascular Exam Present: RRR - *Routine Abdominal Exam Present: soft, normoactive bowel sounds. Absent: tenderness - *Routine Extremities Exam Present: pulses intact. Absent: edema, calf tenderness - *Routine Neurological Exam Present: alert Lethargic. Speech is clear and patient answers questions readily Assessment and Plan (1) COPD exacerbation Current visit: Yes Status: Acute Category: Medical Code(s): J44.1 - Chronic obstructive pulmonary disease with (acute) exacerbation (2) Non compliance w medication regimen Current visit: Yes Status: Acute Category: Medical Code(s): Z91.14 - Patient's other noncompliance with medication regimen (3) Seizure disorder Current visit: Yes Status: Acute Category: Medical Code(s): G40.909 - Epilepsy, unspecified, not intractable, without status epilepticus (4) Alcoholic cirrhosis of liver without ascites Current visit: Yes Status: Acute Category: Medical Code(s): K70.30 - Alcoholic cirrhosis of liver without ascites (5) Depression Current visit: Yes Status: Acute Category: Medical Code(s): F32.9 - Major depressive disorder, single episode, unspecified (6) Hypomagnesemia Current visit: Yes Status: Acute Category: Medical Code(s): E83.42 - Hypomagnesemia (7) Tobacco use disorder Current visit: Yes Status: Acute Category: Medical Code(s): F17.200 - Nicotine dependence, unspecified, uncomplicated (8) Alcoholism Current visit: Yes Status: Chronic Category: Medical Code(s): F10.20 - Alcohol dependence, uncomplicated (9) Hypokalemia Current visit: No Status: Acute Category: Medical Code(s): E87.6 - Hypokalemia (10) Low body mass index (BMI) Current visit: No Status: Acute Category: Medical (11) Anemia Current visit: No Status: Chronic Category: Medical Code(s): D64.9 - Anemia, unspecified (12) Cardiomyopathy Current visit: No Status: Chronic Category: Medical Code(s): I42.9 - Cardiomyopathy, unspecified (13) Hypothyroidism Current visit: No Status: Chronic Category: Medical Code(s): E03.9 - Hypothyroidism, unspecified - Assessment and plan all Dx Assessment and Plan for all problems:: Continue with IV antibiotics. Ronaldo chasejal have been on a as needed basis and will schedule. She has not received one since admission. Out of bed.
[2018-08-03 06:04] LABS: Basophils % 0.3 % (0.1-2.0); Eosinophils # 0.3 K/mm3 (0.0-0.4); Hematocrit 35.4 % (37.0-47.0); Hemoglobin 11.3 g/dL (12.2-16.2); Lymphocytes # 1.6 K/mm3 (0.7-4.5); Lymphocytes % 21.6 % (10-50); Mean Corpuscular Volume 102.7 fl (81-99); Mean Platelet Volume 8.2 fl (7.4-10.4); Monocytes # 0.3 K/mm3 (0.1-1.0); Monocytes % 4.3 % (1.7-9.3); Neutrophils # 5.2 K/mm3 (1.8-7.8); Neutrophils % 69.7 % (37.0-80.0); Platelet Count 120 K/mm3 (142-424); Red Blood Count 3.45 M/mm3 (4.20-5.40); Red Cell Distribution Width 15.3 % (11.5-17.5); White Blood Count 7.4 K/mm3 (4.8-10.8)
[2018-08-03 06:11] LABS: Anion Gap 11.6 mEq/L (5-15); Calcium 7.6 mg/dL (8.5-10.1)
--- NOTE | 2018-08-03 08:13 | Progress Note ---
Internal Medicine - PN: Subj *Date: 08/03/18 *Time: 08:10 Interval history: Patient states again that she wants to go home. She states she slept last night. She is not eating well but is drinking fluids. She has been out of bed to the chair and has walked to the bathroom. She states she is unsteady with walking. She denies chest pain and shortness of breath. She feels her cough is less. Exam Vital signs and Labs for Last 24 Hours: Temp Pulse Resp BP Pulse Ox 98.0 F 78 17 138/90 94 L 08/03/18 04:00 08/03/18 06:03 08/03/18 04:00 08/03/18 04:00 08/03/18 06:07 Laboratory Results - last 24 hr 08/03/18 05:47: WBC 7.4, RBC 3.45 L, Hgb 11.3 L, Hct 35.4 L, MCV 102.7 H, MCH 32.9 H, MCHC 32.0, RDW 15.3, Plt Count 120 L, MPV 8.2, Neut % (Auto) 69.7, Lymph % (Auto) 21.6, [place] % (Auto) 4.3, Eos % (Auto) 4.0, Baso % (Auto) 0.3, Neut # (Auto) 5.2, Lymph # (Auto) 1.6, [place] # (Auto) 0.3, Eos # (Auto) 0.3, Baso # (Auto) 0.0 08/03/18 05:47: Sodium 133 L, Potassium 3.6, Chloride 100, Carbon Dioxide 25, Anion Gap 11.6, BUN 5 L, Creatinine 0.74, Estimated Creat Clear 41, Estimated GFR 79, Est GFR ( Amer) 96, Glucose 152 H D, Calcium 7.6 L, Magnesium 0.8 L D I & O for Last 24 hours: Intake & Output 07/31/18 08/01/18 08/02/18 08/03/18 11:59 11:59 11:59 11:59 Intake Total 902 / 902 2368 / 2368 3593 / 3593 Balance 902 / 902 2368 / 2368 3593 / 3593 Weight 98 lb 4 oz 101 lb 2 oz Microbiology Reports for the Last 24 Hours: Microbiology 07/31/18 16:46 Sputum - Expectorated Sputum Gram Stain - Final 07/31/18 14:05 Blood Blood Culture - Preliminary NO GROWTH AFTER 48 HOURS 07/31/18 14:05 Blood Blood Culture - Preliminary NO GROWTH AFTER 48 HOURS - Constitutional no acute distress Comments: Awakened from sleep. Awakens easily. Eyes are more focused this a.m. - *Routine Respiratory Exam Present: CTA bilaterally (Anteriorly impaired posteriorly. Better inspiratory effort with encouragement) - *Routine Cardiovascular Exam Present: RRR - *Routine Abdominal Exam Present: soft, normoactive bowel sounds. Absent: tenderness - *Routine Extremities Exam Absent: edema, calf tenderness - *Routine Neurological Exam Present: alert, oriented X3 Assessment and Plan (1) COPD exacerbation Current visit: Yes Status: Acute Category: Medical Code(s): J44.1 - Chronic obstructive pulmonary disease with (acute) exacerbation (2) Non compliance w medication regimen Current visit: Yes Status: Acute Category: Medical Code(s): Z91.14 - Patient's other noncompliance with medication regimen (3) Seizure disorder Current visit: Yes Status: Acute Category: Medical Code(s): G40.909 - Epilepsy, unspecified, not intractable, without status epilepticus (4) Alcoholic cirrhosis of liver without ascites Current visit: Yes Status: Acute Category: Medical Code(s): K70.30 - Alcoholic cirrhosis of liver without ascites (5) Depression Current visit: Yes Status: Acute Category: Medical Code(s): F32.9 - Major depressive disorder, single episode, unspecified (6) Hypomagnesemia Current visit: Yes Status: Acute Category: Medical Code(s): E83.42 - Hypomagnesemia (7) Tobacco use disorder Current visit: Yes Status: Acute Category: Medical Code(s): F17.200 - Nicotine dependence, unspecified, uncomplicated (8) Alcoholism Current visit: Yes Status: Chronic Category: Medical Code(s): F10.20 - Alcohol dependence, uncomplicated (9) Hypokalemia Current visit: No Status: Acute Category: Medical Code(s): E87.6 - Hypokalemia (10) Low body mass index (BMI) Current visit: No Status: Acute Category: Medical (11) Anemia Current visit: No Status: Chronic Category: Medical Code(s): D64.9 - Anemia, unspecified (12) Cardiomyopathy Current visit: No Status: Chronic Category: Medical Code(s): I42.9 - Cardiomyopathy, unspecified (13) Hypothyroidism Current visit: No Status: Chronic Category: Medical Code(s): E03.9 - Hypothyroidism, unspecified - Assessment and plan all Dx Assessment and Plan for all problems:: Magnesium level is lower today.. Will give IV and p.o. magnesium. We will continue with antibiotics and duo nebs.
[2018-08-03 16:02] VITALS: BP 115/60
--- NOTE | 2018-08-05 16:52 | Discharge Summary ---
General - General Admission date:: 07/31/18 Discharge date: 08/03/18 HPI HPI: 62 year old female patient of Dr. Pagan's brought to [facility] ER yesterday by EMS due to shortness of breath. Patient had been seen in the office of [facility] the day before and was diagnosed with a COPD exacerbation. She was prescribed Prednisone and Levaquin. Patient's breathing did not improve and she called 911 for further assistance. EMS reported patient had drank some whiskey yesterday morning and was not using her supplemental oxygen when they arrived. She was tachypneic and wheezing. Her O2 sat was in the 80's. She was given a neb treatment and then brought to the ER. Hospital Course Hospital Course: The patient's chest x-ray showed nothing acute. She had a CTA which showed no evidence of PE or pneumonia. The patient was admitted and started on Levaquin. Her magnesium was low, therefore she was started on some magnesium. She was on seizure and alcohol withdrawal precautions. She was started on potassium for hy pokalemia. Duo nebs were also added PRN and scheduled. The patient did feel better and wanted to go home. She had been out of bed to the chair and walk to the bathroom. She was sleeping well and drinking but not eating. She denied any chest pain or shortness of breath and felt her cough had improved. Her magnesium was lower and she was given IV and p.o. magnesium. Her blood and sputum cultures showed no growth. She was stable to be discharged home on Levaquin and magnesium and will follow up with Dr. Pagan in the office. Objective Vital signs: Temp Pulse Resp BP Pulse Ox 97.7 F 92 H 18 115/60 98 08/03/18 16:00 08/03/18 16:00 08/03/18 16:00 08/03/18 16:00 08/03/18 16:00 Narrative: - Constitutional no acute distress, thin - *Routine HEENT Exam Head: Present: normocephalic Eye: Present: EOMI ENT: Present: mucous membranes moist - *Routine Neck Exam Present: supple. Absent: lymphadenopathy - *Routine Respiratory Exam Present: wheezes (rare, good air movement overall) - *Routine Cardiovascular Exam Present: RRR - *Routine Abdominal Exam Present: soft, normoactive bowel sounds, tenderness (minimal periumbilical). Absent: distended, rebound, guarding, firm - *Routine Extremities Exam Absent: cyanosis, clubbing, edema - *Routine Skin Exam Present: warm. Absent: rash - *Routine Neurological Exam Present: alert Results Labs on day of discharge: Labs from last 24 hours 08/02/18 11:45 Hct (Send Out) 33.8 L Folate Hemolysate 506.2 RBC Folate 1498 DS: Diagnosis - Discharge Diagnosis (1) COPD exacerbation Status: Acute (2) Non compliance w medication regimen Status: Acute (3) Seizure disorder Status: Acute (4) Alcoholic cirrhosis of liver without ascites Status: Acute (5) Depression Status: Acute (6) Hypomagnesemia Status: Acute (7) Tobacco use disorder Status: Acute (8) Alcoholism Status: Chronic (9) Hypokalemia Status: Acute (10) Low body mass index (BMI) Status: Acute (11) Anemia Status: Chronic (12) Cardiomyopathy Status: Chronic (13) Hypothyroidism Status: Chronic Discharge Plan - Patient Discharge Instructions ACTIVITY: Limited activity DIET: regular diet Patient Instructions: DI for Chronic Obstructive Pulmonary Disease, DI for Seizure Disorder -- Adult, How to Quit Smoking - Follow up Plan Follow up with: Berta Pagan MD [Primary Care Provider] - 08/07/18 10:30 am Disposition: Home, Self-Usp Medications: Home Medications Medication Instructions Recorded Confirmed Type Spironolactone 25 mg PO DAILY 04/27/18 07/31/18 History Levothyroxine Sodium [Synthroid 150 mcg PO DAILY 06/13/18 07/31/18 History 150mcg (0.15mg) tablet] Albuterol Sulfate [Albuterol HFA 2 puffs IH QIDP PRN 06/14/18 07/31/18 History Inhaler] Cholecalciferol (Vitamin D3) 2,000 units PO DAILY 06/14/18 07/31/18 History [Vitamin D3] Estradiol 1 mg PO DAILY 06/14/18 07/31/18 History Ferrous Sulfate 325 mg PO BID 06/14/18 07/31/18 History Oxybutynin Chloride [Ditropan 5mg 5 mg PO TID 06/14/18 07/31/18 History tablet] Raloxifene HCl 60 mg PO DAILY 06/14/18 07/31/18 History Sertraline HCl [Zoloft] 100 mg PO BID 06/14/18 07/31/18 History Carvedilol [Coreg 6.25mg 6.25 mg PO BID #60 tab 06/18/18 07/31/18 Rx Tablet] Gabapentin [Neurontin 100mg 100 mg PO TID #90 cap 06/18/18 07/31/18 Rx cap] Sucralfate [Carafate 1gm Tab] 2 gm PO BID #120 tab 06/18/18 07/31/18 Rx levETIRAcetam [Keppra 500mg tablet] 500 mg PO BID #60 tab 06/23/18 07/31/18 Rx predniSONE [Deltasone 20mg 20 mg PO BID 08/01/18 08/01/18 History tablet] Magnesium Oxide [Mag-Ox 400mg Tab] 400 mg PO BID #60 tab 08/03/18 Rx levoFLOXacin [Levaquin 500mg 500 mg PO 1100 #5 tab 08/03/18 Rx tab] Prescriptions/Medication Reconciliation: New levoFLOXacin [Levaquin 500mg tab] 500 mg PO 1100 #5 tab Magnesium Oxide [Mag-Ox 400mg Tab] 400 mg PO BID #60 tab Continued Spironolactone 25 mg PO DAILY Levothyroxine Sodium [Synthroid 150mcg (0.15mg) tablet] 150 mcg PO DAILY Albuterol Sulfate [Albuterol HFA Inhaler] 2 puffs IH QIDP PRN PRN Reason: Shortness Of Breath Or Wheezing Estradiol 1 mg PO DAILY Ferrous Sulfate 325 mg PO BID Oxybutynin Chloride [Ditropan 5mg tablet] 5 mg PO TID Raloxifene HCl 60 mg PO DAILY Sertraline HCl [Zoloft] 100 mg PO BID Carvedilol [Coreg 6.25mg Tablet] 6.25 mg PO BID #60 tab Sucralfate [Carafate 1gm Tab] 2 gm PO BID #120 tab levETIRAcetam [Keppra 500mg tablet] 500 mg PO BID #60 tab Cholecalciferol (Vitamin D3) [Vitamin D3] 2,000 units PO DAILY Gabapentin [Neurontin 100mg cap] 100 mg PO TID #90 cap predniSONE [Deltasone 20mg tablet] 20 mg PO BID
== END 2018-08-03 17:15 | disposition home or self-care (01) ==
LOC: SUPCPDRO → 2ND 13:44 → ER 13:44 → 2ND 20:40
PROVIDERS: ADMIT Family Medicine; ATTEND Family Medicine
DX: Z88.8 Allergy status to other drugs, medicaments and biological substances; Z88.2 Allergy status to sulfonamides; I10 Essential (primary) hypertension; F32.9 Major depressive disorder, single episode, unspecified; Z88.1 Allergy status to other antibiotic agents; E46 Unspecified protein-calorie malnutrition; J44.1 Chronic obstructive pulmonary disease with (acute) exacerbation; F10.20 Alcohol dependence, uncomplicated; E03.9 Hypothyroidism, unspecified; Z88.0 Allergy status to penicillin; Z91.14 Patient's other noncompliance with medication regimen; E83.42 Hypomagnesemia; Z91.040 Latex allergy status; Z91.018 Allergy to other foods; I42.9 Cardiomyopathy, unspecified; E87.6 Hypokalemia; K70.30 Alcoholic cirrhosis of liver without ascites; D64.9 Anemia, unspecified; G40.909 Epilepsy, unspecified, not intractable, without status epilepticus; Z95.0 Presence of cardiac pacemaker; Z79.899 Other long term (current) drug therapy; F17.200 Nicotine dependence, unspecified, uncomplicated; Z68.1 Body mass index [BMI] 19.9 or less, adult
CPT/HCPCS: 36415; 71010; 71045; 71275; 80048; 80053; 82607; 82747; 83605; 83735; 83880; 84484; 85014; 85025; 85378; 85610; 87040; 87070; 87077; 87186; 87205; 93005; 94640; 94761; 99285; G0378; J1956; J2405; Q9967

== ENCOUNTER 2018-08-06 17:12 | Observation (INO) ==
--- NOTE | 2018-08-06 17:17 | Emergency Department Note ---
ED Disposition Clinical Impression: Hypoglycemia Altered mental status Qualifiers: Altered mental status type: disorientation Qualified Code(s): R41.0 - Disorientation, unspecified Disposition: Admitted as Observation Condition on Discharge: Fair Instructions: DI for Altered Mental Status Referrals: Provider,Referral, [Primary Care Provider] - - Critical Care Critical Care Time: No Attestation: On , the high probability of a clinically significant, sudden or life threatening deterioration of the following system(s) required my full and direct attention, intervention and personal management. The time I documented below is in addition to time spent performing reported procedures but includes the following listed in this critical care notation. Medical Decision Making - Juan José Inquiry Pt receiving controlled substance: No Vital Signs: 08/06/18 17:17 08/06/18 17:29 08/06/18 18:01 Temperature 98.6 F Temperature Source Oral Pulse Rate [Left Radial] 93 H 97 H 89 Respiratory Rate 18 Blood Pressure [Right Arm] 143/77 H 131/70 120/67 Blood Pressure Mean [Right Arm] 99 90 84 Blood Pressure Source [Right Arm] Automatic Cuff Blood Pressure Position [Right Arm] Sitting 02 Sat by Pulse Oximetry 98 97 96 Oxygen Delivery Method Room Air 08/06/18 18:49 Temperature Temperature Source Pulse Rate [Left Radial] 78 Respiratory Rate Blood Pressure [Right Arm] 154/91 H Blood Pressure Mean [Right Arm] 112 Blood Pressure Source [Right Arm] Automatic Cuff Blood Pressure Position [Right Arm] Sitting 02 Sat by Pulse Oximetry Oxygen Delivery Method - Lab Data Lab Results 08/06/18 17:18: WBC 9.8, RBC 3.83 L, Hgb 12.5, Hct 39.9, MCV 104.2 H, MCH 32.7 H , MCHC 31.3 L, RDW 15.5, Plt Count 140 L, MPV 8.4, Neut % (Auto) 66.9, Lymph % (Auto) 24.8, [place] % (Auto) 6.0, Eos % (Auto) 1.8, Baso % (Auto) 0.4, Neut # (Auto) 6.6, Lymph # (Auto) 2.4, [place] # (Auto) 0.6, Eos # (Auto) 0.2, Baso # (Auto) 0.0 08/06/18 17:18: Sodium 132 L, Potassium 2.9 L*, Chloride 96 L, Carbon Dioxide 26, Anion Gap 12.9, BUN 15, Creatinine 0.80, Estimated Creat Clear 37, Estimated GFR 72, Est GFR ( Amer) 87, Glucose 132 H, Calcium 9.2, Magnesium 0.9 L, Total Bilirubin 0.3, AST 22, ALT 17, Alkaline Phosphatase 55, Troponin I < 0.02, Total Protein 7.1, Albumin 3.4, Globulin 3.7 H, Albumin/Globulin Ratio 0.9 L, Pl asma/Serum Alcohol 0 08/06/18 18:26: Urine Color Yellow, Urine Appearance Clear, Urine pH 7.0, Ur Specific [place] 1.015, Urine Protein Negative, Urine Glucose (UA) Trace, Urine Ketones Negative, Urine Blood Trace-i, Urine Nitrate Negative, Urine Bilirubin Negative, Urine Urobilinogen 0.2, Ur Leukocyte Esterase Negative, Urine WBC Occasional, Ur Squamous Epith Cells 3-5, Urine Bacteria Trace 08/06/18 18:26: Urine Opiates Screen Negative, Urine Methadone Screen Negative, Ur Barbituates Screen Negative, Ur Phencyclidine Scrn Negative, Ur Amphetamines Screen Negative, U Benzodiazepines Scrn Negative, Urine Cocaine Screen Negative, U Marijuana (THC) Screen Negative 08/06/18 18:30: Specimen Source Left radial, O2 % room air, ABG pH 7.51 H, ABG pCO2 30.9 L, ABG pO2 64.1 L, ABG HCO3 24.0, ABG Total CO2 25.0, ABG O2 Saturation 93, ABG Base Excess 1.0, Noah Test Acceptable 08/06/18 18:53: Ammonia 29 Result diagrams: 08/06/18 17:18 08/06/18 17:18 Orders (Tests/Meds): ED MEDICATIONS Generic Name Dose Route Start Last Admin Trade Name Freq PRN Reason Stop Dose Admin Multivitamins 10 ml/ Thiamine 1,015 mls @ 150 mls/hr 08/06/18 18:25 08/06/18 19:05 HCl 100 mg/ Magnesium Sulfate IV 08/07/18 01:10 150 mls/hr 2 gm/ Lactated Ringer's .[id number] CORBIN Administration Discontinued Medications Generic Name Dose Route Start Last Admin Trade Name Freq PRN Reason Stop Dose Admin Folic Acid 1 mg 08/06/18 18:24 08/06/18 18:49 Folic Acid 1mg Tablet PO 08/06/18 18:25 1 mg ONCE ONE Administration Potassium Chloride 60 meq 08/06/18 18:11 08/06/18 18:48 Klor-Con 20meq Tablet PO 08/06/18 18:12 60 meq ONCE ONE Administration ORDERS Category Date Time Status CT head/brain wo con Stat Cat Scan 08/06/18 18:30 Taken Chest XR -- portable [XR chest portable] Stat Exams 08/06/18 17:29 Taken - Radiology Data #1 Image(s): Chest Image Reviewed: Yes I reviewed the patient's radiology image Pacemaker, Port-A-Cath, minimal blunting left costophrenic angle. - CT Data CT Scan: Head Time Received: 19:[address] Reviewed: Yes: I have viewed the radiologist's interpretation Findings Narrative: CT scan interpreted by ad radiologist. Faxed report received and reviewed: No acute intracranial process, no change from 06/20/2018. - ECG Data Tracing #1 EKG interpreted by Miller Wei MD: Rhythm: Ventricular paced rhythm Rate: 92 No evidence of acute ischemia or injury - Physician Consults Physician Consulted: Ej Time: 18:40 Reason -: Pt condition Comment/Response: Confirms that patient is not normally disoriented or confused. Agrees with further evaluation for altered mental status. I will perform further evaluation for altered mental status with CT head, ABGs, ammonia level, and call him back. Additional Consult: Ej Time: 19:48 Reason -: Admission Comment/Response: Agrees to admit the patient to the hospital. We discussed the patient's clinical information, including history, exam, laboratory and radiology results and ED course. Per hospital procedure, I will write temporary bridge inpatient orders on the patient. Specific orders requested by the admitting physician: Alcohol withdrawal protocol Medical Decision Narrative: Patient recently admitted here 07/31/2018, discharge 08/03/2018. She was admitted for shortness of breath, COPD exacerbation. I do not see any documentation in that record that she was confused or disoriented during that admission. This appears to be new. General Adult HPI - General Chief complaint: Altered Mental Status Stated complaint: ALTERED MENTAL STATUS Time Seen by Provider: 08/06/18 18:16 - History of Present Illness HPI narrative: Brought in by ambulance with report of altered mental status. EMS reports that her blood sugar was low and treated with D50. The patient is not diabetic, not on insulin. The patient is a very poor, extremely inconsistent historian. She is oriented to person and place. She says that the date is 1955. She says that she feels "terrible". When I asked her to be more specific, she tells me that she is having chest pain and pain from her pacemaker for 8 years, constantly every day. She admits to drinking alcohol and I see that she has a history of alcoholism and alcohol withdrawal from her previous visits. She initially told me that she has been drinking today, but then told me she has not had anything to drink today. She initially told me that she was eating and drinking well, but then when I asked her when the last time she ate was she says she has not eaten anything today, yesterday, or the day before because she does not have an appetite. She says she lives alone. - Related Data Home Medications Medication Instructions Recorded Confirmed Spironolactone 25 mg PO DAILY 04/27/18 08/06/18 Levothyroxine Sodium [Synthroid 150 mcg PO DAILY 06/13/18 08/06/18 150mcg (0.15mg) tablet] Albuterol Sulfate [Albuterol HFA 2 puffs IH QIDP PRN 06/14/18 07/31/18 Inhaler] Cholecalciferol (Vitamin D3) 2,000 units PO DAILY 06/14/18 07/31/18 [Vitamin D3] Estradiol 1 mg PO DAILY 06/14/18 08/06/18 Ferrous Sulfate 325 mg PO BID 06/14/18 08/06/18 Oxybutynin Chloride [Ditropan 5mg 5 mg PO TID 06/14/18 08/06/18 tablet] Raloxifene HCl 60 mg PO DAILY 06/14/18 08/06/18 Sertraline HCl [Zoloft] 100 mg PO BID 06/14/18 08/06/18 predniSONE [Deltasone 20mg 20 mg PO BID 08/01/18 08/01/18 tablet] Carvedilol [Coreg 6.25mg 6.25 mg PO BID 08/06/18 08/06/18 Tablet] Gabapentin [Neurontin 100mg 100 mg PO TID 08/06/18 08/06/18 cap] Magnesium Oxide [Mag-Ox 400mg Tab] 400 mg PO BID 08/06/18 08/06/18 Previous Rx's Medication Instructions Recorded Sucralfate [Carafate 1gm Tab] 2 gm PO BID #120 tab 06/18/18 levETIRAcetam [Keppra 500mg tablet] 500 mg PO BID #60 tab 06/23/18 levoFLOXacin [Levaquin 500mg 500 mg PO 1100 #5 tab 08/03/18 tab] Allergies Allergy/AdvReac Type Severity Reaction Status Date / Time banana Allergy Severe Anaphylaxis Verified 08/01/18 10:18 lisinopril [LISINOPRIL] Allergy Severe S-SWELLS-OR Verified 06/30/18 11:15 AL/THROAT Penicillins [PENICILLINS] Allergy Severe S-SWELLS-OR Verified 06/30/18 11:15 AL/THROAT Sulfa (Sulfonamide Allergy Severe S-SKIN Verified 06/30/18 11:15 Antibiotics) ERUPTIONS [SULFA (SULFONAMIDE ANTIBIOTICS)] sulfamethoxazole Allergy Severe S-SKIN Verified 06/30/18 11:15 [From BACTRIM] ERUPTIONS trimethoprim [From BACTRIM] Allergy Severe S-SKIN Verified 06/30/18 11:15 ERUPTIONS latex [LATEX] Allergy Intermediate I-RASH Verified 06/30/18 11:15 metronidazole AdvReac Severe Gastrointestinal Verified 06/30/18 11:15 Upset [facility] History - Hepatitis A Screen Attestation statement:: This patient has been screened for Hepatitis A risk factors. I have reviewed the patient's past medical history: Yes Medical History: Reports:: Anxiety, Cancer, Cardiomyopathy, Congestive Heart Failure (alcohol induced), Chronic Obstructive Pulmonary Disease (COPD), Depression, Home Oxygen, Hypertension, Internal Pacemaker, Seizures Denies:: Diabetes Mellitus Type 1, Diabetes Mellitus Type 2, MRSA Other Medical History: Reports: Anemia, Hormone Therapy, Hypothyroidism, Thyroid Disease, Other (seizure disorder, cirrhosis) Comment: Peripheral neuropathy, Home 02 Laterality Cases: Bilateral: Myringotomy (Ear Tubes) Other Surgeries: Yes: Cancer Surgery, Colon Resection, Hysterectomy-Total, Pacemaker, Other Amputation: No Fractures: No Comment: Bottom teeth extracted; left radical neck dissection 04/29/2011; exploratory laparotomy with right colon 05/07/2011; I&D of left neck 05/08/2011; biopsy on jaw 2011 bilateral left March 2015, breast implants - Social History Smoking Status: Current every day smoker Tobacco Type: cigarettes # Packs/Day (cigarettes): 2 Alcohol Intake: current Alcohol Intake Frequency:: 3 or more drinks per day Occupational Status: disabled Housing: house - Psychiatric History Pschychiatric History:: Reports:: Anxiety, Depression Family Hx:: Cancer (colon) ROS Obtained: Yes All systems reviewed & no additional complaints - Constitutional Constitutional: Denies fever(s) - Cardiovascular Cardiovascular: Reports chest pain (Chronic) - Respiratory Respiratory: No dyspnea - Gastrointestinal Gastrointestingal: Denies: abdominal pain, diarrhea, vomiting - Neurologic Neurologic: Denies headache(s) Physical Exam - General General appearance: alert, in no apparent distress - Head Head exam: atraumatic, normocephalic - Eye Eye exam: Present: normal appearance, PERRL, EOMI - ENT ENT exam: Present: mucous membranes moist - Neck Neck exam: Present: normal inspection, full ROM - Chest Chest inspection: Present: normal inspection, symmetric chest wall rise - Respiratory Respiratory exam: Present: normal lung sounds bilaterally. Absent: respiratory distress - Cardiovascular Cardiovascular exam: Present: regular rate, normal rhythm, normal heart sounds, Pacemaker/defibrillator - Abdominal Exam Abdominal exam: Present: soft, normal bowel sounds. Absent: distention, tenderness - Extremities Exam Extremities exam: Present: normal inspection - Neurological Exam Neurological exam: Present: alert, CN II-XII intact, other (Oriented x2). Absent: motor sensory deficit - Psychiatric Psychiatric exam: Present: normal affect, normal mood - Skin Skin exam: Present: warm, dry
[2018-08-06 17:58] LABS: Alanine Aminotransferase 17 U/L (12-78); Albumin Level 3.4 gm/dL (3.4-5.0); Albumin/Globulin Ratio 0.9 (1.1-1.8); Alkaline Phosphatase 55 U/L (46-116); Anion Gap 12.9 mEq/L (5-15); Aspartate Amino Transferase 22 U/L (15-37); Bilirubin,Total 0.3 mg/dL (0.2-1.0); Blood Urea Nitrogen 15 mg/dL (7-18); Calcium 9.2 mg/dL (8.5-10.1); Carbon Dioxide 26 mmol/L (21.0-32.0); Chloride 96 mmol/L (98-107); Globulin 3.7 gm/dl (1.3-3.2); Glucose 132 mg/dL (74-106); Sodium 132 mmol/L (136-145); Total Protein,Serum 7.1 gm/dL (6.4-8.2)
[2018-08-06 18:09] LABS: Ethyl Alcohol 0 mg/dL (0-99)
[2018-08-06 18:25] LABS: Basophils % 0.4 % (0.1-2.0); Eosinophils # 0.2 K/mm3 (0.0-0.4); Eosinophils % 1.8 % (0.1-12.0); Hematocrit 39.9 % (37.0-47.0); Hemoglobin 12.5 g/dL (12.2-16.2); Lymphocytes # 2.4 K/mm3 (0.7-4.5); Lymphocytes % 24.8 % (10-50); Mean Corpuscular HGB Conc 31.3 g/dL (31.8-35.4); Mean Corpuscular Volume 104.2 fl (81-99); Mean Platelet Volume 8.4 fl (7.4-10.4); Monocytes # 0.6 K/mm3 (0.1-1.0); Neutrophils # 6.6 K/mm3 (1.8-7.8); Neutrophils % 66.9 % (37.0-80.0); Platelet Count 140 K/mm3 (142-424); Red Blood Count 3.83 M/mm3 (4.20-5.40); Red Cell Distribution Width 15.5 % (11.5-17.5); White Blood Count 9.8 K/mm3 (4.8-10.8)
[2018-08-06 18:32] LABS: Microscopic, Urine URINE MICROSCOPIC (MICROSCOPIC)
[2018-08-06 18:39] LABS: Appearance,Urine CLEAR (Clear); Bilirubin,Urine Negative (Negative); Blood, Urine TRACE-I (Negative); Color,Urine YELLOW (Yellow); Glucose,Urine (UA) TRACE (Negative); Ketones,Urine Negative (Negative); Leukocyte Esterase,Urine Negative (Negative); Protein,Urine Negative (Negative); Specific Gravity, Urine 1.015 (1.005-1.030); Urobilinogen,Urine 0.2 EU/dl (0.2)
[2018-08-06 18:42] LABS: ABG Oxygen Saturation 93 % (90-100); ABG PCO2 30.9 mmhg (35.0-45.0); ABG PH 7.51 mmol/L (7.35-7.45); ABG PO2 64.1 mmhg (80-100)
[2018-08-06 18:43] LABS: Allen's Test Acceptable; Oxygen room air %
[2018-08-06 18:47] LABS: WBC,Urine Occasional #/hpf (0-3)
[2018-08-06 18:48] LABS: Bacteria,Urine Trace /lpf
[2018-08-06 19:10] LABS: Amphetamine/Metha Screen,Urine Negative ng/mL (<1000); Barbiturates Screen,Urine Negative ng/mL (<200); Benzodiazepines Screen,Urine Negative ng/mL (<200); Cannabinoid Screen,Urine Negative ng/mL (<50); Cocaine Screen,Urine Negative ng/mL (<300); Methadone Screen,Urine Negative ng/mL (<300); Opiate Screen,Urine Negative ng/mL (<300); Phencyclidine Screen,Urine Negative ng/mL (<25)
[2018-08-06 20:31] LABS: Activated Partial Thrombo Time 25.7 seconds (23.6-34.0); INR 1.04 (0.9-1.1); Prothrombin Time 10.8 seconds (9.4-11.8)
[2018-08-07 07:07] LABS: Anion Gap 10.7 mEq/L (5-15); Calcium 8.5 mg/dL (8.5-10.1)
--- NOTE | 2018-08-07 08:44 | History & Physical Report ---
*Admission Date: 08/07/18 *Chief complaint: Confusion, altered mental status. *History of present illness: This is a 62-year-old white female chronic alcoholic was discharged from the hospital only a few days ago. She returns now with altered mental status. On the morning of exam she is feeling better. Her potassium which was 2.9 on admission is now normal. She admits that she did not get her medications filled upon discharge, particularly the magnesium. She had low magnesium on her last admission. When she presented in the emergency room she was confused and had a very inconsistent history. She did not appear to be alcohol intoxicated at the time she was admitted. Her blood sugar was very low on admission. She does not have a history of diabetes and does not take medications that would lower her blood sugar. She has been on prednisone recently and she takes Keppra 500 mg twice a day. She was readmitted for stabilization. Significant in her past history is chronic alcoholism, cirrhosis of the liver, alcoholic cardiomyopathy with pacemaker placement. [facility] History Medical History: Reports:: Anxiety, Cancer, Cardiomyopathy, Congestive Heart Failure, Chronic Obstructive Pulmonary Disease (COPD), Depression, Home Oxygen, Hypertension, Internal Pacemaker, Seizures Denies:: Diabetes Mellitus Type 1, Diabetes Mellitus Type 2, MRSA *Have you ever received a pneumonia vaccine?: Yes *Have you received a flu vaccine this season?: Yes Other Medical History: Reports: Anemia, Hormone Therapy, Hypothyroidism, Thyroid Disease, Other (seizure disorder, cirrhosis) Laterality Cases: Bilateral: Myringotomy (Ear Tubes) Other Surgeries: Yes: Cancer Surgery, Colon Resection, Hysterectomy-Total, Pacemaker, Other Amputation: No Fractures: No - *Social History Smoking Status: Current every day smoker Tobacco Type: cigarettes # Packs/Day (cigarettes): 1 Alcohol Intake: current Alcohol Intake Frequency:: 3 or more drinks per day *Occupational Status:: disabled Housing: house *Travel in the last 8 weeks: None - Psychiatric History Expresses thoughts of harming self/others: None Suicide Plan Description: No Plan Pschychiatric History:: Reports:: Anxiety, Depression Family Hx:: Cancer (colon) Review of Systems - Constitutional Reports anorexia - Eyes Denies change in vision - ENT Reports dizziness, Denies bleeding gums - *Cardiovascular Reports chest pain, Reports lightheadedness, Denies rapid, pounding, or irreg ular heartbeat - *Respiratory Reports chest congestion - *Gastrointestinal Denies abdominal pain - *Musculoskeletal Reports decreased muscle mass - Integumentary/Breasts Denies bleeding lesions - *Neurologic Denies headache(s) - Psychiatric Reports anxiety Meds Home Medications Medication Instructions Recorded Confirmed Type Spironolactone 25 mg PO DAILY 04/27/18 08/06/18 History Levothyroxine Sodium [Synthroid 150 mcg PO DAILY 06/13/18 08/06/18 History 150mcg (0.15mg) tablet] Albuterol Sulfate [Albuterol HFA 2 puffs IH QIDP PRN 06/14/18 08/06/18 History Inhaler] Cholecalciferol (Vitamin D3) 2,000 units PO DAILY 06/14/18 07/31/18 History [Vitamin D3] Estradiol 1 mg PO DAILY 06/14/18 08/06/18 History Ferrous Sulfate 325 mg PO BID 06/14/18 08/06/18 History Oxybutynin Chloride [Ditropan 5mg 5 mg PO TID 06/14/18 08/06/18 History tablet] Raloxifene HCl 60 mg PO DAILY 06/14/18 08/06/18 History Sertraline HCl [Zoloft] 100 mg PO BID 06/14/18 08/06/18 History Sucralfate [Carafate 1gm Tab] 2 gm PO BID #120 tab 06/18/18 08/06/18 Rx levETIRAcetam [Keppra 500mg tablet] 500 mg PO BID #60 tab 06/23/18 07/31/18 Rx predniSONE [Deltasone 20mg 20 mg PO BID 08/01/18 08/01/18 History tablet] levoFLOXacin [Levaquin 500mg 500 mg PO 1100 #5 tab 08/03/18 Rx tab] Carvedilol [Coreg 6.25mg 6.25 mg PO BID 08/06/18 08/06/18 History Tablet] Gabapentin [Neurontin 100mg 100 mg PO TID 08/06/18 08/06/18 History cap] Magnesium Oxide [Mag-Ox 400mg Tab] 400 mg PO BID 08/06/18 08/06/18 History Allergies Allergy/AdvReac Type Severity Reaction Status Date / Time banana Allergy Severe Anaphylaxis Verified 08/01/18 10:18 lisinopril [LISINOPRIL] Allergy Severe S-SWELLS-OR Verified 06/30/18 11:15 AL/THROAT Penicillins [PENICILLINS] Allergy Severe S-SWELLS-OR Verified 06/30/18 11:15 AL/THROAT Sulfa (Sulfonamide Allergy Severe S-SKIN Verified 06/30/18 11:15 Antibiotics) ERUPTIONS [SULFA (SULFONAMIDE ANTIBIOTICS)] sulfamethoxazole Allergy Severe S-SKIN Verified 06/30/18 11:15 [From BACTRIM] ERUPTIONS trimethoprim [From BACTRIM] Allergy Severe S-SKIN Verified 06/30/18 11:15 ERUPTIONS latex [LATEX] Allergy Intermediate I-RASH Verified 06/30/18 11:15 metronidazole AdvReac Severe Gastrointestinal Verified 06/30/18 11:15 Upset Exam Vital signs and Labs for Last 24 Hours: Temp Pulse Resp BP Pulse Ox 98.1 F 72 18 145/73 H 98 08/07/18 08:00 08/07/18 08:00 08/07/18 08:00 08/07/18 08:00 08/07/18 08:00 Laboratory Results - last 24 hr 08/06/18 17:12: PT 10.8, INR 1.04, APTT 25.7 08/06/18 17:12: Phosphorus 3.3 08/06/18 17:18: WBC 9.8, RBC 3.83 L, Hgb 12.5, Hct 39.9, MCV 104.2 H, MCH 32.7 H , MCHC 31.3 L, RDW 15.5, Plt Count 140 L, MPV 8.4, Neut % (Auto) 66.9, Lymph % (Auto) 24.8, [place] % (Auto) 6.0, Eos % (Auto) 1.8, Baso % (Auto) 0.4, Neut # (Auto) 6.6, Lymph # (Auto) 2.4, [place] # (Auto) 0.6, Eos # (Auto) 0.2, Baso # (Auto) 0.0 08/06/18 17:18: Sodium 132 L, Potassium 2.9 L*, Chloride 96 L, Carbon Dioxide 26, Anion Gap 12.9, BUN 15, Creatinine 0.80, Estimated Creat Clear 37, Estimated GFR 72, Est GFR ( Amer) 87, Glucose 132 H, Calcium 9.2, Magnesium 0.9 L, Total Bilirubin 0.3, AST 22, ALT 17, Alkaline Phosphatase 55, Troponin I < 0.02, Total Protein 7.1, Albumin 3.4, Globulin 3.7 H, Albumin/Globulin Ratio 0.9 L, Plasma/Serum Alcohol 0 08/06/18 18:26: Urine Color Yellow, Urine Appearance Clear, Urine pH 7.0, Ur Specific [place] 1.015, Urine Protein Negative, Urine Glucose (UA) Trace, Urine Ketones Negative, Urine Blood Trace-i, Urine Nitrate Negative, Urine Bilirubin Negative, Urine Urobilinogen 0.2, Ur Leukocyte Esterase Negative, Urine WBC Occasional, Ur Squamous Epith Cells 3-5, Urine Bacteria Trace 08/06/18 18:26: Urine Opiates Screen Negative, Urine Methadone Screen Negative, Ur Barbituates Screen Negative, Ur Phencyclidine Scrn Negative, Ur Amphetamines Screen Negative, U Benzodiazepines Scrn Negative, Urine Cocaine Screen Negative, U Marijuana (THC) Screen Negative 08/06/18 18:30: Specimen Source Left radial, O2 % room air, ABG pH 7.51 H, ABG pCO2 30.9 L, ABG pO2 64.1 L, ABG HCO3 24.0, ABG Total CO2 25.0, ABG O2 Saturation 93, ABG Base Excess 1.0, Noah Test Acceptable 08/06/18 18:53: Ammonia 29 08/07/18 06:44: Sodium 134 L, Potassium 3.7 D, Chloride 99, Carbon Dioxide 28, Anion Gap 10.7, BUN 10 D, Creatinine 0.56 D, Estimated Creat Clear 40, Es timated GFR 109, Est GFR ( Amer) 132 D, Glucose 107 H, Calcium 8.5 I & O for Last 24 hours: Intake & Output 08/04/18 08/05/18 08/06/18 08/07/18 11:59 11:59 11:59 11:59 Intake Total 927 / 927 Balance 927 / 927 Weight 98 lb 4 oz - Constitutional no acute distress - *Routine HEENT Exam Head: Present: normocephalic (Except for wasting of the mandible.) Eye: Present: PERRL, normal accommodation. Absent: nystagmus ENT: Present: mucous membranes moist - *Routine Neck Exam Present: supple - Routine Chest/Breast/Axilla Exam Chest wall: Present: tenderness, pacemaker - *Routine Respiratory Exam Present: rales (Rales at the bases. Good air movement otherwise.) - *Routine Cardiovascular Exam Present: RRR - *Routine Abdominal Exam Present: soft. Absent: tenderness - *Routine Extremities Exam Absent: edema (Muscle atrophy of the lower extremities.) - *Routine Skin Exam Present: intact - *Routine Neurological Exam Present: alert, oriented X3 (At this time she seems quite oriented and states she feels better.) Assessment and Plan (1) Hypomagnesemia Current visit: Yes Status: Acute Category: Medical Code(s): E83.42 - Hypomagnesemia (2) Hypokalemia Current visit: Yes Status: Acute Category: Medical Code(s): E87.6 - Hypokalemia (3) Altered mental status Current visit: Yes Status: Acute Qualifiers: Altered mental status type: disorientation Qualified Code(s): R41.0 - Disorientation, unspecified Category: Medical Code(s): R41.82 - Altered mental status, unspecified (4) Hypoglycemia Current visit: Yes Status: Acute Category: Medical Code(s): E16.2 - Hypoglycemia, unspecified (5) Alcoholic cirrhosis of liver without ascites Current visit: No Status: Acute Category: Medical Code(s): K70.30 - Alcoholic cirrhosis of liver without ascites (6) COPD (chronic obstructive pulmonary disease) Current visit: No Status: Acute Category: Medical Code(s): J44.9 - Chronic obstructive pulmonary disease, unspecified (7) Cardiomyopathy Current visit: No Status: Chronic Category: Medical Code(s): I42.9 - Cardiomyopathy, unspecified - Assessment and plan all Dx Assessment and Plan for all problems:: See orders.
--- NOTE | 2018-08-07 14:14 | Pharmacy Consult Notes ---
[facility] Pharmacy VTE Monitoring - Patient Demographics Admission date: 08/07/18 Report Date: 08/07/18 Time: 14:14 Allergies/Adverse Reactions: Patient Allergies banana Allergy (Severe, Verified 08/01/18 10:18) Anaphylaxis lisinopril [LISINOPRIL] Allergy (Severe, Verified 06/30/18 11:15) H-[id number]/THROAT Penicillins [PENICILLINS] Allergy (Severe, Verified 06/30/18 11:15) S-[id number]/THROAT Sulfa (Sulfonamide Antibiotics) [SULFA (SULFONAMIDE ANTIBIOTICS)] Allergy (Severe, Verified 06/30/18 11:15) S-SKIN ERUPTIONS sulfamethoxazole [From BACTRIM] Allergy (Severe, Verified 06/30/18 11:15) S-SKIN ERUPTIONS trimethoprim [From BACTRIM] Allergy (Severe, Verified 06/30/18 11:15) S-SKIN ERUPTIONS latex [LATEX] Allergy (Intermediate, Verified 06/30/18 11:15) I-RASH metronidazole Adverse Reaction (Severe, Verified 06/30/18 11:15) Gastrointestinal Upset Height: 1.68 m Weight: 44.565 kg Patient Problems: Current Active Problems (Updated 08/07/18 @ 08:54 by Berta Pagan MD) Altered mental status (Acute) Hypoglycemia (Acute) Hypomagnesemia (Acute) Hypokalemia (Acute) - VTE Risk Labs: VTE Related Lab Results Hgb 12.5 g/dL (12.2-16.2) 08/06/18 17:18 Hct 39.9 % (37.0-47.0) 08/06/18 17:18 Plt Count 140 K/mm3 (142-424) L 08/06/18 17:18 PT 10.8 seconds (9.4-11.8) 08/06/18 17:12 INR 1.04 (0.9-1.1) 08/06/18 17:12 APTT 25.7 seconds (23.6-34.0) 08/06/18 17:12 BUN 10 mg/dL (7-18) D 08/07/18 06:44 Creatinine 0.56 mg/dL (0.55-1.02) D 08/07/18 06:44 Estimated Creat Clear 40 mL/min (50-200) 08/07/18 06:44 Was VTE Risk Assessment Performed: No VTE Risk Level: Very Low Risk - Prophylaxis VTE Prophylaxis Ordered?: Yes Types of VTE Prophylaxis: TEDS Knee High Location of Applied Device: Bilateral Lower Extremeties - VTE Diagnosis Confirmed Treatment or plan recommended: Continue Current Treatment
[2018-08-08 07:08] LABS: Basophils % 0.2 % (0.1-2.0); Eosinophils # 0.1 K/mm3 (0.0-0.4); Eosinophils % 0.6 % (0.1-12.0); Hematocrit 36.2 % (37.0-47.0); Hemoglobin 11.4 g/dL (12.2-16.2); Lymphocytes # 2.1 K/mm3 (0.7-4.5); Lymphocytes % 21.8 % (10-50); Mean Corpuscular HGB Conc 31.5 g/dL (31.8-35.4); Mean Corpuscular Volume 101.2 fl (81-99); Mean Platelet Volume 8.5 fl (7.4-10.4); Monocytes # 0.5 K/mm3 (0.1-1.0); Monocytes % 4.9 % (1.7-9.3); Neutrophils # 6.8 K/mm3 (1.8-7.8); Neutrophils % 72.5 % (37.0-80.0); Platelet Count 144 K/mm3 (142-424); Red Blood Count 3.58 M/mm3 (4.20-5.40); Red Cell Distribution Width 15.4 % (11.5-17.5); White Blood Count 9.4 K/mm3 (4.8-10.8)
[2018-08-08 07:24] LABS: Anion Gap 12.9 mEq/L (5-15); Calcium 8.8 mg/dL (8.5-10.1)
--- NOTE | 2018-08-08 13:16 | Progress Note ---
Internal Medicine - PN: Subj *Date: 08/08/18 *Time: 13:13 Interval history: She is feeling quite well. She was able to sleep. She is eating okay. Her vital signs are normal and her blood tests have normalized. Dr. Pagan spoke with her power of commonwealth attorney today when he called. Exam Vital signs and Labs for Last 24 Hours: Temp Pulse Resp BP Pulse Ox 98.3 F 69 17 157/92 H 96 08/08/18 08:00 08/08/18 08:00 08/08/18 08:00 08/08/18 08:00 08/08/18 08:00 Laboratory Results - last 24 hr 08/08/18 06:52: WBC 9.4, RBC 3.58 L, Hgb 11.4 L, Hct 36.2 L, MCV 101.2 H, MCH 31.9 H, MCHC 31.5 L, RDW 15.4, Plt Count 144, MPV 8.5, Neut % (Auto) 72.5, Lymph % (Auto) 21.8, [place] % (Auto) 4.9, Eos % (Auto) 0.6, Baso % (Auto) 0.2, Neut # (Auto) 6.8, Lymph # (Auto) 2.1, [place] # (Auto) 0.5, Eos # (Auto) 0.1, Baso # (Auto) 0.0 08/08/18 06:52: Sodium 133 L, Potassium 3.9, Chloride 96 L, Carbon Dioxide 28, Anion Gap 12.9, BUN 8, Creatinine 0.66, Estimated Creat Clear 41, Estimated GFR 90, Est GFR ( Amer) 109, Glucose 110 H, Calcium 8.8 I & O for Last 24 hours: Intake & Output 08/06/18 08/07/18 08/08/18 08/09/18 11:59 11:59 11:59 11:59 Intake Total 927 / 927 1200 / 1200 Balance 927 / 927 1200 / 1200 Weight 98 lb 4 oz 100 lb - Constitutional no acute distress - *Routine HEENT Exam ENT: Present: mucous membranes moist - *Routine Neck Exam Present: supple - *Routine Respiratory Exam Present: CTA bilaterally - *Routine Cardiovascular Exam Present: RRR - *Routine Abdominal Exam Present: soft. Absent: tenderness - *Routine Exam Comments: She has a recurrent lesion in the left pudendal area that she had me examine. This seems to be a cystic structure which will periodically drain. It is not acutely inflamed. - *Routine Extremities Exam Absent: edema - *Routine Neurological Exam Present: alert, oriented X3 Assessment and Plan (1) Altered mental status Current visit: Yes Status: Acute Qualifiers: Altered mental status type: disorientation Qualified Code(s): R41.0 - Disorientation, unspecified Category: Medical Code(s): R41.82 - Altered mental status, unspecified (2) Hypomagnesemia Current visit: Yes Status: Acute Category: Medical Code(s): E83.42 - Hypomagnesemia (3) Hypokalemia Current visit: Yes Status: Acute Category: Medical Code(s): E87.6 - Hypokalemia (4) Hypoglycemia Current visit: Yes Status: Acute Category: Medical Code(s): E16.2 - Hypoglycemia, unspecified (5) Alcoholic cirrhosis of liver without ascites Current visit: No Status: Acute Category: Medical Code(s): K70.30 - Alcoholic cirrhosis of liver without ascites (6) COPD (chronic obstructive pulmonary disease) Current visit: No Status: Acute Category: Medical Code(s): J44.9 - Chronic obstructive pulmonary disease, unspecified (7) Cardiomyopathy Current visit: No Status: Chronic Category: Medical Code(s): I42.9 - Cardiomyopathy, unspecified - Assessment and plan all Dx Assessment and Plan for all problems:: Continue present regimen. Likely discharge tomorrow. "Meds to bed" may avoid problems of her going home without appropriate medications.
[2018-08-09 06:56] LABS: Albumin/Globulin Ratio 0.9 (1.1-1.8); Anion Gap 10.8 mEq/L (5-15); Bilirubin,Total 0.3 mg/dL (0.2-1.0); Globulin 3.5 gm/dl (1.3-3.2); Total Protein,Serum 6.5 gm/dL (6.4-8.2)
--- NOTE | 2018-08-09 08:50 | Progress Note ---
Internal Medicine - PN: Subj *Date: 08/09/18 *Time: 08:46 Interval history: Patient states she is feeling well. Gives the thumbs up sign. She is eating better. Bowels have moved. She is voiding although sometimes incontinent. She walks to the bathroom with help. She denies chest pain and breathing difficulties. She is ready to go home. Exam Vital signs and Labs for Last 24 Hours: Temp Pulse Resp BP Pulse Ox 97.2 F L 72 14 132/83 100 08/09/18 08:02 08/09/18 08:00 08/09/18 08:00 08/09/18 08:00 08/09/18 08:00 Laboratory Results - last 24 hr 08/09/18 05:52: Sodium 125 L, Potassium 4.8 D, Chloride 90 L, Carbon Dioxide 29, Anion Gap 10.8, BUN 10, Creatinine 0.71, Estimated Creat Clear 41, Estimated GFR 83, Est GFR ( Amer) 100, Glucose 120 H, Calcium 9.0, Total Bilirubin 0.3, AST 15 D, ALT 18, Alkaline Phosphatase 46, Total Protein 6.5, Albumin 3.0 L, Globulin 3.5 H, Albumin/Globulin Ratio 0.9 L I & O for Last 24 hours: Intake & Output 08/06/18 08/07/18 08/08/18 08/09/18 11:59 11:59 11:59 11:59 Intake Total 927 / 927 1200 / 1200 1080 / 1080 Output Total 0 / 0 Balance 927 / 927 1200 / 1200 1080 / 1080 Weight 98 lb 4 oz 100 lb 101 lb 8 oz - Constitutional no acute distress Comments: Sitting on the side of the bed eating her breakfast. Appears comfortable - *Routine Respiratory Exam Present: CTA bilaterally (Anteriorly and posteriorly with good air movement.) - *Routine Cardiovascular Exam Present: RRR - *Routine Abdominal Exam Present: soft, normoactive bowel sounds. Absent: tenderness - *Routine Extremities Exam Absent: edema, calf tenderness - *Routine Neurological Exam Present: alert, oriented X3, normal speech Assessment and Plan (1) Altered mental status Current visit: Yes Status: Acute Qualifiers: Altered mental status type: disorientation Qualified Code(s): R41.0 - Disorientation, unspecified Category: Medical Code(s): R41.82 - Altered mental status, unspecified (2) Hypomagnesemia Current visit: Yes Status: Acute Category: Medical Code(s): E83.42 - Hypomagnesemia (3) Hypokalemia Current visit: Yes Status: Acute Category: Medical Code(s): E87.6 - Hypokalemia (4) Hypoglycemia Current visit: Yes Status: Acute Category: Medical Code(s): E16.2 - Hypoglycemia, unspecified (5) Alcoholic cirrhosis of liver without ascites Current visit: No Status: Acute Category: Medical Code(s): K70.30 - Alcoholic cirrhosis of liver without ascites (6) COPD (chronic obstructive pulmonary disease) Current visit: No Status: Acute Category: Medical Code(s): J44.9 - Chronic obstructive pulmonary disease, unspecified (7) Cardiomyopathy Current visit: No Status: Chronic Category: Medical Code(s): I42.9 - Cardiomyopathy, unspecified - Assessment and plan all Dx Assessment and Plan for all problems:: Patient is ready for discharge
--- NOTE | 2018-08-09 22:39 | Discharge Summary ---
General - General Admission date:: 08/06/18 Discharge date: 08/09/18 HPI HPI: This is a 62-year-old white female chronic alcoholic was discharged from the hospital only a few days ago. She returns now with altered mental status. On the morning of exam she is feeling better. Her potassium which was 2.9 on admission is now normal. She admits that she did not get her medications filled upon discharge, particularly the magnesium. She had low magnesium on her last admission. When she presented in the emergency room she was confused and had a very inconsistent history. She did not appear to be alcohol intoxicated at the time she was admitted. Her blood sugar was very low on admission. She does not have a history of diabetes and does not take medications that would lower her blood sugar. She has been on prednisone recently and she takes Keppra 500 mg twice a day. She was readmitted for stabilization. Significant in her past history is chronic alcoholism, cirrhosis of the liver, alcoholic cardiomyopathy with pacemaker placement. Hospital Course Hospital Course: The patient's chest x-ray showed mild COPD but nothing acute. Her head CT showed market cortical atrophy but nothing acute. By the day after admission, her blood tests had normalized as had her vital signs. She was feeling well and was able to sleep and eat. Dr. Pagan did speak with her power of civil rights attorney. They felt she would need "meds to bed" to avoid problems of going home without appropriate medications. She was able to get up and walk to the bathroom without help and denied any pain. She wanted to go home. She was stable to be discharged home. Objective Vital signs: Temp Pulse Resp BP Pulse Ox 97.2 F L 72 14 132/83 100 08/09/18 08:02 08/09/18 08:00 08/09/18 08:00 08/09/18 08:00 08/09/18 08:00 Narrative: - Constitutional no acute distress - *Routine HEENT Exam Head: Present: normocephalic (Except for wasting of the mandible.) Eye: Present: PERRL, normal accommodation. Absent: nystagmus ENT: Present: mucous membranes moist - *Routine Neck Exam Present: supple - Routine Chest/Breast/Axilla Exam Chest wall: Present: tenderness, pacemaker - *Routine Respiratory Exam Present: rales (Rales at the bases. Good air movement otherwise.) - *Routine Cardiovascular Exam Present: RRR - *Routine Abdominal Exam Present: soft. Absent: tenderness - *Routine Extremities Exam Absent: edema (Muscle atrophy of the lower extremities.) - *Routine Skin Exam Present: intact - *Routine Neurological Exam Present: alert, oriented X3 (At this time she seems quite oriented and states she feels better.) Results Labs on day of discharge: Labs from last 24 hours 08/09/18 08/06/18 05:52 17:18 Sodium 125 L Potassium 4.8 D Chloride 90 L Carbon Dioxide 29 Anion Gap 10.8 BUN 10 Creatinine 0.71 Estimated Creat Clear 41 Estimated GFR 83 Est GFR ( Amer) 100 Glucose 120 H Calcium 9.0 Magnesium 0.9 L Total Bilirubin 0.3 AST 15 D ALT 18 Alkaline Phosphatase 46 Total Protein 6.5 Albumin 3.0 L Globulin 3.5 H Albumin/Globulin Ratio 0.9 L DS: Diagnosis - Discharge Diagnosis (1) Altered mental status Status: Acute (2) Hypomagnesemia Status: Acute (3) Hypokalemia Status: Acute (4) Hypoglycemia Status: Acute (5) Alcoholic cirrhosis of liver without ascites Status: Acute (6) COPD (chronic obstructive pulmonary disease) Status: Acute (7) Cardiomyopathy Status: Chronic Discharge Plan - Patient Discharge Instructions ACTIVITY: Continue current activity DIET: regular diet Patient Instructions: Hypoglycemia, Delirium, DI for Hypoglycemia, DI for Altered Mental Status - Follow up Plan Disposition: Home, Self-Skilled Nursing Medications: Home Medications Medication Instructions Recorded Confirmed Type Spironolactone 25 mg PO DAILY 04/27/18 08/06/18 History Levothyroxine Sodium [Synthroid 150 mcg PO DAILY 06/13/18 08/06/18 History 150mcg (0.15mg) tablet] Albuterol Sulfate [Albuterol HFA 2 puffs IH QIDP PRN 06/14/18 08/06/18 History Inhaler] Cholecalciferol (Vitamin D3) 2,000 units PO DAILY 06/14/18 08/07/18 History [Vitamin D3] Estradiol 1 mg PO DAILY 06/14/18 08/06/18 History Ferrous Sulfate 325 mg PO BID 06/14/18 08/06/18 History Oxybutynin Chloride [Ditropan 5mg 5 mg PO TID 06/14/18 08/06/18 History tablet] Raloxifene HCl 60 mg PO DAILY 06/14/18 08/06/18 History Sertraline HCl [Zoloft] 100 mg PO BID 06/14/18 08/06/18 History Sucralfate [Carafate 1gm Tab] 2 gm PO BID #120 tab 06/18/18 08/06/18 Rx levETIRAcetam [Keppra 500mg tablet] 500 mg PO BID #60 tab 06/23/18 08/07/18 Rx Carvedilol [Coreg 6.25mg 6.25 mg PO BID 08/06/18 08/06/18 History Tablet] Gabapentin [Neurontin 100mg 100 mg PO TID 08/06/18 08/06/18 History cap] Folic Acid [Folic Acid 1mg tablet] 1 mg PO DAILY #100 tab 08/09/18 Rx Magnesium Oxide [Mag-Ox 400mg Tab] 400 mg PO BID #60 tab 08/09/18 Rx Multivitamin [Multi-Vitamin Plain] 1 each PO 1700 tab 08/09/18 Rx Oxazepam 10 mg PO TID #90 cap 08/09/18 Rx Potassium Chloride [Micro-K 10mEq 10 meq PO BID #60 capsule.er 08/09/18 Rx cap] Thiamine HCl [Vitamin B-1 100mg 100 mg PO DAILY #100 tab 08/09/18 Rx tablet] predniSONE [Deltasone 20mg 20 mg PO DAILY #30 tab 08/09/18 Rx tablet] Prescriptions/Medication Reconciliation: New Folic Acid [Folic Acid 1mg tablet] 1 mg PO DAILY #100 tab Potassium Chloride [Micro-K 10mEq cap] 10 meq PO BID #60 capsule.er Thiamine HCl [Vitamin B-1 100mg tablet] 100 mg PO DAILY #100 tab Oxazepam 10 mg PO TID #90 cap Multivitamin [Multi-Vitamin Plain] 1 each PO 1700 tab Continued Spironolactone 25 mg PO DAILY Levothyroxine Sodium [Synthroid 150mcg (0.15mg) tablet] 150 mcg PO DAILY Albuterol Sulfate [Albuterol HFA Inhaler] 2 puffs IH QIDP PRN PRN Reason: Shortness Of Breath Or Wheezing Estradiol 1 mg PO DAILY Ferrous Sulfate 325 mg PO BID Oxybutynin Chloride [Ditropan 5mg tablet] 5 mg PO TID Raloxifene HCl 60 mg PO DAILY Sertraline HCl [Zoloft] 100 mg PO BID Sucralfate [Carafate 1gm Tab] 2 gm PO BID #120 tab levETIRAcetam [Keppra 500mg tablet] 500 mg PO BID #60 tab Gabapentin [Neurontin 100mg cap] 100 mg PO TID Carvedilol [Coreg 6.25mg Tablet] 6.25 mg PO BID Magnesium Oxide [Mag-Ox 400mg Tab] 400 mg PO BID #60 tab Cholecalciferol (Vitamin D3) [Vitamin D3] 2,000 units PO DAILY Changed predniSONE [Deltasone 20mg tablet] 20 mg PO DAILY #30 tab Discontinued levoFLOXacin [Levaquin 500mg tab] 500 mg PO 1100 #5 tab
== END 2018-08-09 13:31 | disposition home or self-care (01) ==
LOC: 2ND 17:12 → ER 17:12 → 2ND 20:30
PROVIDERS: ADMIT Family Medicine; ATTEND Family Medicine
DX: Z72.0 Tobacco use; E87.6 Hypokalemia; E16.2 Hypoglycemia, unspecified; Z88.2 Allergy status to sulfonamides; Z88.8 Allergy status to other drugs, medicaments and biological substances; E83.42 Hypomagnesemia; J44.9 Chronic obstructive pulmonary disease, unspecified; Z88.0 Allergy status to penicillin; R41.0 Disorientation, unspecified; K70.30 Alcoholic cirrhosis of liver without ascites; Z79.51 Long term (current) use of inhaled steroids; I42.9 Cardiomyopathy, unspecified
CPT/HCPCS: 36415; 70450; 71010; 71045; 80048; 80053; 80305; 81001; 82140; 82803; 83735; 84100; 84484; 85025; 85610; 85730; 93005; 96365; 99284; G0378

== ENCOUNTER 2018-10-18 12:17 | Outpatient (CLI) | payer MEDICARE, MEDICAID, SELFPAY ==
[2018-10-18 12:17] VITALS: BMI 16.1
[2018-10-18 12:53] LABS: Basophils % 0.5 % (0.1-2.0); Eosinophils # 0.2 K/mm3 (0.0-0.4); Hematocrit 34.2 % (37.0-47.0); Hemoglobin 11.6 g/dL (12.2-16.2); Lymphocytes # 1.6 K/mm3 (0.7-4.5); Lymphocytes % 21.5 % (10-50); Mean Corpuscular Hemoglobin 33.1 pg (27.0-31.2); Mean Corpuscular Volume 97.5 fl (81-99); Mean Platelet Volume 7.4 fl (7.4-10.4); Monocytes # 0.5 K/mm3 (0.1-1.0); Neutrophils # 5.2 K/mm3 (1.8-7.8); Neutrophils % 69.1 % (37.0-80.0); Platelet Count 160 K/mm3 (142-424); Red Blood Count 3.51 M/mm3 (4.20-5.40); Red Cell Distribution Width 16.3 % (11.5-17.5); White Blood Count 7.6 K/mm3 (4.8-10.8)
[2018-10-18 13:17] LABS: Hemoglobin A1C 4.9 % (0.0-7.0)
[2018-10-18 13:19] LABS: Alanine Aminotransferase 14 U/L (12-78); Albumin Level 3.7 gm/dL (3.4-5.0); Albumin/Globulin Ratio 0.8 (1.1-1.8); Alkaline Phosphatase 64 U/L (46-116); Anion Gap 17.7 mEq/L (5-15); Aspartate Amino Transferase 27 U/L (15-37); Bilirubin,Total 0.9 mg/dL (0.2-1.0); Blood Urea Nitrogen 16 mg/dL (7-18); Calcium 9.4 mg/dL (8.5-10.1); Carbon Dioxide 24 mmol/L (21.0-32.0); Chloride 88 mmol/L (98-107); Creatinine Clearance Estimated 41 mL/min (50-200); Creatinine,Serum 0.65 mg/dL (0.55-1.02); Estimated Glomerular Filt Rate 91 ml/min (>60); GFR (African American) 111 ML/MIN (>60); Globulin 4.5 gm/dl (1.3-3.2); Glucose 84 mg/dL (74-106); Potassium 3.7 mmoL/L (3.5-5.1); Sodium 126 mmol/L (136-145); Total Protein,Serum 8.2 gm/dL (6.4-8.2)
[2018-10-22 10:10] LABS: Levetiracetam (Keppra) None Detected ug/mL (10.0-40.0)
== END 2018-10-18 12:45 | disposition home or self-care (01) ==
PROVIDERS: PCP Family Medicine; Visit Provider Family Medicine
DX: Z45.2 Encounter for adjustment and management of vascular access device (principal); I42.6 Alcoholic cardiomyopathy; K70.30 Alcoholic cirrhosis of liver without ascites; Z79.899 Other long term (current) drug therapy
CPT/HCPCS: 80053; 80177; 83036; 85025; J1642

== ENCOUNTER → 2019-06-01 13:33 | Outpatient (CLI) | payer MEDICARE, OTHER, SELFPAY ==
--- NOTE | 2019-06-01 13:38 | XR_ITS ---
PROCEDURE: XR FOOT LT MIN 3V CLINICAL INDICATION: CELLULITIS THIRD TOE COMPARISON: FTR3 FOOT-RT-3 VIEWS from 01/22/2015 FTL3 FOOT-LT-3 VIEWS from 09/12/2015 FINDINGS: The no obvious fracture or dislocation. There is osteopenia at the distal phalanx of the 3rd toe. On the oblique view there is also an area of suspicious bony erosion involving the tip of the distal phalanx of the 2nd toe. This did not have a similar appearance on the previous exam. IMPRESSION: Suspected erosive change at the tuft of the distal phalanx of the 2nd toe raising the suspicion of osteomyelitis. Osteopenia of the distal phalanx of the 3rd toe. Please correlate as the patient's area of clinical concern. Dictated by: Noah Andrews MD 06/01/2019 14:10 Electronically signed by Noah Andrews MD in [place] 06/01/2019 14:10
== END ==
PROVIDERS: PCP Family Medicine; Visit Provider Family Medicine
DX: L03.032 Cellulitis of left toe (principal)
CPT/HCPCS: 73630

== ENCOUNTER 2019-10-01 21:04 | Inpatient (IN) | payer OTHER, MEDICARE, SELFPAY ==
[2019-10-01 21:06] VITALS: BMI 18.8
--- NOTE | 2019-10-01 21:07 | XR_ITS ---
PROCEDURE: XR CHEST PORTABLE CLINICAL HISTORY: SOA COMPARISON: CR CXR2V XR chest 2V from 06/13/[address] angio chest from 07/31/2018 FINDINGS: Biventricular and right atrial pacemaker is present from left subclavian approach. Normal heart size. There are atelectatic changes in the right lower lobe. Changes of COPD There is an old left 6th rib fracture IMPRESSION: Right lower lobe atelectasis with COPD Dictated by: Noah Andrews MD 10/01/2019 22:25 Noah Andrews MD in [place] 10/01/2019 22:25
--- NOTE | 2019-10-01 21:07 | ECG_ITS ---
APPROVED REPORT Exam: Resting ECG HR:103 bpm ECG Measurements Heart Rate 103 AXES WY 134 P 60 QRSd 152 QRS -57 QT 440 T 53 QTc 576 <Conclusion> Electronic ventricular pacemaker Electronically signed by : Hamzah Hancock, 10/02/2019 06:02:49
[2019-10-01 21:13] VITALS: BP 137/83; PULSE 112; RESP 28; TEMP 37.1; O2SAT 95; BMI 17.6
[2019-10-01 21:25] LABS: Basophils # 0.1 K/mm3 (0-0.2); Basophils % 0.6 % (0.1-2.0); Eosinophils # 0.3 K/mm3 (0.0-0.4); Eosinophils % 3.3 % (0.1-12.0); Hematocrit 36.4 % (37.0-47.0); Hemoglobin 12.2 g/dL (12.2-16.2); Lymphocytes # 1.3 K/mm3 (0.7-4.5); Lymphocytes % 15.7 % (10-50); Mean Corpuscular HGB Conc 33.5 g/dL (31.8-35.4); Mean Corpuscular Hemoglobin 36.2 pg (27.0-31.2); Mean Corpuscular Volume 107.8 fl (81-99); Mean Platelet Volume 9.1 fl (7.4-10.4); Monocytes # 0.1 K/mm3 (0.1-1.0); Monocytes % 1.5 % (1.7-9.3); Neutrophils # 6.6 K/mm3 (1.8-7.8); Platelet Count 87 K/mm3 (142-424); Red Blood Count 3.38 M/mm3 (4.20-5.40); Red Cell Distribution Width 14.6 % (11.5-17.5); White Blood Count 8.3 K/mm3 (4.8-10.8)
[2019-10-01 21:30] VITALS: BP 114/71; PULSE 107; RESP 28; O2SAT 98
[2019-10-01 21:31] LABS: Chloride 89 mmol/L (98-107); Potassium 3.2 mmoL/L (3.5-5.1); Sodium 128 mmol/L (136-145)
[2019-10-01 21:34] LABS: Alanine Aminotransferase 32 U/L (12-78); Albumin Level 4.6 g/dl (3.5-5.0); Albumin/Globulin Ratio 1.2 (1.1-1.8); Alkaline Phosphatase 119 U/L (38-126); Anion Gap 34.2 mEq/L (5-15); Aspartate Amino Transferase 102 U/L (14-36); Bilirubin,Total 1.8 mg/dl (0.2-1.3); Blood Urea Nitrogen 22 mg/dl (7-17); Creatinine Clearance Estimated 37 mL/min (50-200); Estimated Glomerular Filt Rate 45 ml/min (>60); GFR (African American) 54 ML/MIN (>60); Globulin 3.8 g/dL (1.3-3.2); Glucose 55 mg/dl (74-100); Total Protein,Serum 8.4 g/dl (6.3-8.2)
[2019-10-01 21:35] LABS: Calcium 9.1 mg/dl (8.4-10.2)
[2019-10-01 21:36] LABS: ABG Base Excess -19.6 mmol/L (-2.4-2.3); ABG HCO3 7.6 mmhg (22.0-26.0); ABG Oxygen Saturation 92 % (90-100); ABG PH 7.25 mmol/L (7.35-7.45); ABG PO2 71.3 mmhg (80-100); ABG TCO2 8.2 mmhg (23-27)
[2019-10-01 21:37] LABS: Carbon Dioxide 8 mmol/L (22.0-30.0); Ethyl Alcohol < 10 mg/dl (0-10)
[2019-10-01 21:37] LABS: ABG PCO2 17.9 mmhg (35.0-45.0); Allen's Test Y; Oxygen 2 %; Source R/R
--- NOTE | 2019-10-01 21:40 | HMH.EDSOB ---
ED Disposition Clinical Impression: Acute exacerbation of chronic obstructive airways disease, Metabolic acidosis, Renal insufficiency, Low body mass index (BMI), Tobacco use disorder Disposition: Admitted As Inpatient Condition on Discharge: Fair Referrals: PCP,No [Non-Staff] - - Critical Care Critical Care Time: No Attestation: On 10/01/19, the high probability of a clinically significant, sudden or life threatening deterioration of the following system(s) required my full and direct attention, intervention and personal management. The time I documented below is in addition to time spent performing reported procedures but includes the following listed in this critical care notation. Medical Decision Making - Medical Records Medical records reviewed: Yes: I reviewed the patient's medical records. - Juan José Inquiry Pt receiving controlled substance: No Vital Signs: 10/01/19 21:13 10/01/19 21:30 10/01/19 22:30 Temperature 98.7 F Temperature Source Oral Pulse Rate [Right] 112 H 107 H 100 H Respiratory Rate 28 H 28 H 22 Blood Pressure [Right Arm] 137/83 114/71 118/69 Blood Pressure Mean [Right Arm] 101 85 85 Blood Pressure Source [Right Arm] Automatic Cuff Automatic Cuff Automatic Cuff Blood Pressure Position [Right Arm] Sitting Supine Supine 02 Sat by Pulse Oximetry 95 98 98 Oxygen Delivery Method Room Air Nasal Cannula Nasal Cannula Oxygen Flow Rate (LPM) 2 10/01/19 23:00 Temperature Temperature Source Pulse Rate [Right] 102 H Respiratory Rate 22 Blood Pressure [Right Arm] 109/70 L Blood Pressure Mean [Right Arm] 83 Blood Pressure Source [Right Arm] Blood Pressure Position [Right Arm] 02 Sat by Pulse Oximetry 98 Oxygen Delivery Method Nasal Cannula Oxygen Flow Rate (LPM) - Lab Data Lab results reviewed: Yes: I reviewed the patient's lab results. Lab Results 10/01/19 21:08: Troponin I 0.03 10/01/19 21:08: WBC 8.3, RBC 3.38 L, Hgb 12.2, Hct 36.4 L, MCV 107.8 H, MCH 36.2 H, MCHC 33.5, RDW 14.6, Plt Count 87 L, MPV 9.1, Neut % (Auto) 79.0, Lymph % (Auto) 15.7, Hays % (Auto) 1.5 L, Eos % (Auto) 3.3, Baso % (Auto) 0.6, Neut # (Auto) 6.6, Lymph # (Auto) 1.3, Hays # (Auto) 0.1, Eos # (Auto) 0.3, Baso # (Auto) 0.1 10/01/19 21:08: Sodium 128 L, Potassium 3.2 L, Chloride 89 L, Carbon Dioxide 8 L*, Anion Gap 34.2 H, BUN 22 H, Creatinine 1.20 H, Estimated Creat Clear 37, Estimated GFR 45 L, Est GFR ( Amer) 54 L, Glucose 55 L, Calcium 9.1, Total Bilirubin 1.8 H, AST 102 H, ALT 32, Alkaline Phosphatase 119, Total Protein 8.4 H, Albumin 4.6, Globulin 3.8 H, Albumin/Globulin Ratio 1.2 10/01/19 21:08: Plasma/Serum Alcohol < 10 10/01/19 21:08: ESR 26 10/01/19 21:08: C-Reactive Protein 42.4 H 10/01/19 21:08: Lactate 2.7 H 10/01/19 21:08: SARS-CoV-2 IgG Ab (Rapid) Negative, SARS-CoV-2 IgM Ab (Rapid) Negative 10/01/19 21:35: Specimen Source R/r, O2 % 2, ABG pH 7.25 L, ABG pCO2 17.9 L, ABG pO2 71.3 L, ABG HCO3 7.6 L, ABG Total CO2 8.2 L, ABG O2 Saturation 92, ABG Base Excess -19.6 L, Noah Test Y Result diagrams: 10/01/19 21:08 10/01/19 21:08 Orders (Tests/Meds): ED MEDICATIONS Generic Name Dose Route Start Last Admin Trade Name Freq PRN Reason Stop Dose Admin Sodium Chloride 10 ml 10/01/19 21:50 Sodium Chloride 0.9% 10ml Vial IV 10/31/19 21:49 NEEDED PRN to Dilute Lorazepam inj Discontinued Medications Generic Name Dose Route Start Last Admin Trade Name Freq PRN Reason Stop Dose Admin Sodium Chloride 1,000 mls @ 999 mls/hr 10/01/19 21:45 10/01/19 21:33 Sod Chlor 0.9% 1000ml Bag IV 10/01/19 22:45 999 mls/hr .Q1H1M CORBIN Administration Ioversol 70 ml 10/02/19 00:22 10/02/19 00:23 Rad-Optiray 350 100ml Vial IV 10/02/19 00:23 70 ml ONCE ONE Administration Protocol Lorazepam 0.5 mg 10/01/19 21:50 10/01/19 21:51 Ativan 2mg/Ml Vial IV 10/01/19 21:51 0.5 mg ONCE ONE Administration Methylprednisolone Sodium Succinate 125 mg 10/01/19 21:
[2019-10-01 21:46] LABS: Lactic Acid 2.7 mmol/L (0.7-2.1); Troponin I 0.03 ng/ml (0.00-0.034)
[2019-10-01 22:00] LABS: C-Reactive Protein 42.4 mg/L (0-4)
[2019-10-01 22:02] LABS: Erythrocyte Sedimentation Rate 26 mm/hr (0-30)
[2019-10-01 22:10] LABS: Coronavirus 19 IgG Antibody Negative (Negative); Coronavirus 19 IgM Antibody Negative (Negative)
--- NOTE | 2019-10-01 22:16 | CT_ITS ---
PROCEDURE: CT ANGIO CHEST Referring Doctor: Ricki Khan Patient Age:64Y CLINCIAL INDICATION: SOA the chest pain COMPARISON: CT AGCHEST CT angio chest from 07/31/[address] ABDOMEN PELVIS W CON from 02/11/2019 TECHNIQUE: IV Contrast: 70ML OPTIRAY 350 followed by 40 mL normal saline bolus Thin-section axial images obtained with thickened axial images along with the MIPP sagittal and coronal reformats CT a re-formatted images performed by technologist on independent workstation. All CT scans at the facility use one or more dose reduction, viz: automated exposure control, ma/kV adjustment per patient size (including targeted exams where dose is matched to indication, i.e. head), or iterative reconstruction technique. FINDINGS: PULMONARY ARTERIES: No pulmonary embolus evident. Good visualization of pulmonary arteries the AORTA: No acute finding. No thoracic aortic aneurysm or dissection evident the very minimal atheromatous plaque descending thoracic aorta LUNGS/&CHEST WALL: COPD with prominent emphysematous changes. Hyperexpansion. Recent healing fractures of the right 6th 7th 8th and 9th ribs which have occurred since February CT abdomen. The lung beneath this area at Right lung base demonstrates linear scarring and atelectasis, extending from the periphery lung to the right infrahilar region Also healing fracture posterior left 10th rib with associated scarring and atelectasis just deep to this area at left lower lobe/left left lung base. Also rather linear area of density with some pleural thickening at the posterior LLL. Of the the slight irregularity at the lateral 7th rib could be due to motion artifact of versus fracture. Neither of these areas were seen on a February 2019 CT abdomen. They do appear to reflect associated atelectasis scarring and possibly resolved and areas of inflammation beneath recent rib fractures The patient had a left L1 transverse process fracture in February 2019 which has since healed. There is also old healed fracture of the sternum the noted the . Bilateral breast implants again observed the pacemaker/defibrillator overlies the left chest with multiple leads unchanged since February a the the Port-A-Cath central line enters from right subclavian vein with tip at the SVC. PLEURAL SPACES: No significant pleural the effusion. No evidence of pneumothorax. HEART: Upper the normal heart size. No significant pericardial effusion. MEDIASTINAL AND HILAR STRUCTURES: No mediastinal or hilar mass evident. No dominant adenopathy Trachea note would appear to be layering moderate secretions a along the posterior aspect lower 3rd of the trachea superior to the melissa BONY STRUCTURES: No acute bony abnormalities apparent. The LYMPH NODES: No enlarged lymph nodes evident. UPPER ABDOMEN: Diffuse fatty changes the liver IMPRESSION: 1.. No evidence of pulmonary embolism. Good visualization pulmonary arteries and aorta 2... COPD, emphysematous changes. The no acute pneumonia. No pleural effusions 3..Linear areas atelectasis and scarring lung bases bilaterally -correlate with bilateral rib fractures which have occurred since February 2019. (These rib fractures were NOT noted on [facility] report) Parenchymal scarring with minor focal pleural thickening at left lung base posteriorly correlates with advanced healing at a posterior left 10th rib fracture . More pronounced area of parenchymal scarring and atelectasis at the Right lung base correlate with more recent appearing right 6, 7th, 8th and 9th ribs fractures . Also note healing old left L1 transverse process fracture that occurred likely in February 2019.. 4.. Prominent hepatic steatosis Dictated by:
[2019-10-01 22:30] VITALS: BP 118/69; PULSE 100; RESP 22; O2SAT 98
[2019-10-01 23:00] VITALS: BP 109/70; PULSE 102; RESP 22; O2SAT 98
[2019-10-02] VITALS (14 sets, daily range): BP systolic 50–135; BP diastolic 33–87; PULSE 55–100; RESP 17–24; TEMP 32.3–37.1; O2SAT 89–98; BMI 17.8
[2019-10-02 00:38] LABS: Reflex Lactic Add Lactic Reflex
[2019-10-02 00:55] LABS: Lactic Acid Follow Up (RFLX 1) 0.8 mmol/L (0.7-2.1)
--- NOTE | 2019-10-02 01:02 | PC.NURSE ---
Straight cathed pt for UA 175 ml of cloudy yellow urine out
[2019-10-02 01:07] LABS: Troponin I 0.02 ng/ml (0.00-0.034)
[2019-10-02 01:24] LABS: Microscopic, Urine URINE MICROSCOPIC (MICROSCOPIC)
[2019-10-02 01:47] LABS: Appearance,Urine CLEAR (Clear); Bilirubin,Urine Negative (Negative); Blood, Urine 2+ (Negative); Color,Urine YELLOW (Yellow); Glucose,Urine (UA) Negative (Negative); Ketones,Urine 2+ (Negative); Leukocyte Esterase,Urine 1+ (Negative); Nitrate,Urine Negative (Negative); Protein,Urine 1+ (Negative); Specific Gravity, Urine 1.015 (1.005-1.030); Urobilinogen,Urine 0.2 EU/dl (0.2)
--- NOTE | 2019-10-02 01:55 | PC.NURSE ---
up to bed side britta, full assist needed to stand and pivot.
[2019-10-02 01:59] LABS: Bacteria,Urine Trace /lpf; Squamous Epithelial Cell,Urine Occasional #/hpf (0-5)
--- NOTE | 2019-10-02 02:18 | PC.NURSE ---
PT ARRIVED TO THE FLOOR VIA STRETCHER FROM ER WITH [facility] [place] [facility] [place] 0215.
[2019-10-02 04:37] LABS: Troponin I 0.02 ng/ml (0.00-0.034)
[2019-10-02 04:47] LABS: Blood Urea Nitrogen 19 mg/dl (7-17); Chloride 91 mmol/L (98-107); Creatinine Clearance Estimated 30 mL/min (50-200); Estimated Glomerular Filt Rate 45 ml/min (>60); GFR (African American) 54 ML/MIN (>60); Glucose 129 mg/dl (74-100); Potassium 3.1 mmoL/L (3.5-5.1); Sodium 127 mmol/L (136-145)
[2019-10-02 04:49] LABS: Basophils % 0.1 % (0.1-2.0); Eosinophils % 0.5 % (0.1-12.0); Hematocrit 30.8 % (37.0-47.0); Lymphocytes # 0.3 K/mm3 (0.7-4.5); Lymphocytes % 3.4 % (10-50); Mean Corpuscular Hemoglobin 36.4 pg (27.0-31.2); Mean Corpuscular Volume 110.2 fl (81-99); Mean Platelet Volume 8.7 fl (7.4-10.4); Monocytes # 0.1 K/mm3 (0.1-1.0); Monocytes % 1.2 % (1.7-9.3); Neutrophils # 7.7 K/mm3 (1.8-7.8); Neutrophils % 94.8 % (37.0-80.0); Platelet Count 62 K/mm3 (142-424); Red Cell Distribution Width 14.6 % (11.5-17.5); White Blood Count 8.1 K/mm3 (4.8-10.8)
[2019-10-02 05:06] LABS: Anion Gap 34.1 mEq/L (5-15); Carbon Dioxide < 5 mmol/L (22.0-30.0); MANUAL DIFFERENTIAL MANUAL DIFFERENTIAL (MANUAL DIFF)
[2019-10-02 05:07] LABS: Magnesium 0.5 mg/dl (1.6-2.3)
[2019-10-02 05:13] LABS: Hemoglobin 10.3 g/dL (12.2-16.2)
--- NOTE | 2019-10-02 05:53 | PC.NURSE ---
Pt is currently resting in chair with pull alarm on. Critical lab called this shift. SEE PROVIDER NOTIFICATION. AM labs pulled via right chest port. Pressure wound on coccyx, picture and consent in pt chart. DNR form signed and in pt chart. Pt has been incontinent x2. Pt has refused a bath this shift, but stated maybe later, I'm too anxious . Pt reported to staff that she has not eaten in 5 days, but when offered food multiple times, she has declined stating I am too tired. Pt has stated the last time she had ETOH was over 24 hours ago. Initial CIWA score was 4. Seizure pads have been placed on bed. Call light is within reach, no complaints at this time. Will continue to monitor.
[2019-10-02 06:02] LABS: Calcium 7.9 mg/dl (8.4-10.2)
[2019-10-02 07:31] LABS: Anisocytosis 2+; Lymphocytes % 4 % (10-50); Macrocytosis 2+; Neutrophils % 96 % (42-76); Platelet Estimate Marked Decrease; Total Cells Counted 100
--- NOTE | 2019-10-02 12:58 | HMH.HP ---
*Admission Date: 10/02/19 *Chief complaint: Progressive debilitation *History of present illness: This 64-year-old white female was admitted through the emergency room. She is chronic alcoholic with alcoholic cardiomyopathy cirrhosis of the liver and progressive debilitation which has become more severe over the past several months. She has recently become a hospice patient and is designated DNR. [facility] History Medical History: Reports:: Anxiety, Cancer, Cardiomyopathy, Congestive Heart Failure, Chronic Obstructive Pulmonary Disease (COPD), Depression, Home Oxygen, Hypertension, Internal Pacemaker, Myocardial Infarction, Seizures Denies:: Diabetes Mellitus Type 1, Diabetes Mellitus Type 2, MRSA *Have you ever received a pneumonia vaccine?: No *Have you received a flu vaccine this season?: Yes Other Medical History: Reports: Anemia, Hormone Therapy, Hypothyroidism, Liver Disease, Sinus Problems, Thyroid Disease, Other (seizure disorder, cirrhosis, alcoholism) Laterality Cases: Bilateral: Myringotomy (Ear Tubes) Other Surgeries: Yes: Cancer Surgery, Colon Resection, Hysterectomy-Total, Pacemaker, Plastic Surgery, Other Amputation: No Fractures: No - *Social History Last grade of school completed: 11th or 12th Smoking Status: Heavy tobacco smoker Tobacco Type: cigarettes # Packs/Day (cigarettes): 2 Alcohol Intake: current Alcohol Intake Frequency:: 0-2 drinks per day *Occupational Status:: disabled Housing: house Household Members: none *Travel in the last 8 weeks: None - Psychiatric History Pschychiatric History:: Reports:: Anxiety, Depression Family Hx:: Cancer, Substance abuse, Alcoholism, Mental illness Review of Systems - Review of Systems Review of systems:: unable to obtain - *Neurologic Denies localized weakness, Denies seizure-like activity Meds Home Medications Medication Instructions Recorded Confirmed Type Spironolactone [Spironolactone 25 mg PO DAILY 04/27/18 10/02/19 History 25mg Tablet] Levothyroxine Sodium [Synthroid 150 mcg PO DAILY 06/13/18 10/02/19 History 150mcg (0.15mg) tablet] Cholecalciferol (Vitamin D3) 2,000 units PO DAILY 06/14/18 10/02/19 History [Vitamin D3] Ferrous Sulfate 325 mg PO BID 06/14/18 10/02/19 History Oxybutynin Chloride [Ditropan 5mg 5 mg PO TID 06/14/18 10/02/19 History tablet] Raloxifene HCl 60 mg PO DAILY 06/14/18 10/02/19 History estradioL [Estradiol] 1 mg PO DAILY 06/14/18 10/02/19 History Sucralfate [Carafate 1gm Tab] 2 gm PO BID #120 tab 06/18/18 10/02/19 Rx Gabapentin [Neurontin 100mg 100 mg PO TID 08/06/18 10/02/19 History cap] carvediloL [Coreg 6.25mg 6.25 mg PO BID 08/06/18 10/02/19 History Tablet] Multivitamin [Multi-Vitamin Plain] 1 each PO 1700 10/29/18 10/02/19 History Potassium Chloride [Micro-K 10mEq 10 meq PO BID 10/29/18 10/02/19 History cap] Thiamine HCl [Vitamin B-1 100mg 100 mg PO DAILY 10/29/18 10/02/19 History tablet] levETIRAcetam [Keppra 500mg tablet] 500 mg PO BID 10/29/18 10/02/19 History Allergies Allergy/AdvReac Type Severity Reaction Status Date / Time banana Allergy Severe Anaphylaxis Verified 08/01/18 10:18 lisinopril [LISINOPRIL] Allergy Severe S-SWELLS-OR Verified 06/30/18 11:15 AL/THROAT Penicillins [PENICILLINS] Allergy Severe S-SWELLS-OR Verified 06/30/18 11:15 AL/THROAT Sulfa (Sulfonamide Allergy Severe S-SKIN Verified 06/30/18 11:15 Antibiotics) ERUPTIONS [SULFA (SULFONAMIDE ANTIBIOTICS)] sulfamethoxazole Allergy Severe S-SKIN Verified 06/30/18 11:15 [From BACTRIM] ERUPTIONS trimethoprim [From BACTRIM] Allergy Severe S-SKIN Verified 06/30/18 11:15 ERUPTIONS latex [LATEX] Allergy Intermediate I-RASH Verified 06/30/18 11:15 metronidazole AdvReac Severe Gastrointestinal Verified 06/30/18 11:15 Upset Exam Vital signs and Labs for Last 24 Hours: Temp Pulse Resp BP Pulse Ox 97.7 F 72 24 133/80 90 L 10/02/19 11:19 10/02/19 11:19
--- NOTE | 2019-10-02 14:17 | HMH.PHAVTE ---
[facility] Pharmacy VTE Monitoring - Patient Demographics Admission date: 10/02/19 Report Date: 10/02/19 Time: 14:17 Allergies/Adverse Reactions: Patient Allergies banana Allergy (Severe, Verified 08/01/18 10:18) Anaphylaxis lisinopril [LISINOPRIL] Allergy (Severe, Verified 06/30/18 11:15) C-[id number]-PGKH/THROAT Penicillins [PENICILLINS] Allergy (Severe, Verified 06/30/18 11:15) Q-[id number]-WVKP/THROAT Sulfa (Sulfonamide Antibiotics) [SULFA (SULFONAMIDE ANTIBIOTICS)] Allergy (Severe, Verified 06/30/18 11:15) S-SKIN ERUPTIONS sulfamethoxazole [From BACTRIM] Allergy (Severe, Verified 06/30/18 11:15) S-SKIN ERUPTIONS trimethoprim [From BACTRIM] Allergy (Severe, Verified 06/30/18 11:15) S-SKIN ERUPTIONS latex [LATEX] Allergy (Intermediate, Verified 06/30/18 11:15) I-RASH metronidazole Adverse Reaction (Severe, Verified 06/30/18 11:15) Gastrointestinal Upset Height: 1.52 m Weight: 41.419 kg Patient Problems: Current Active Problems Low body mass index (BMI) (Acute) Tobacco use disorder (Acute) Acute exacerbation of chronic obstructive airways disease (Acute) Metabolic acidosis (Acute) Renal insufficiency (Acute) Alcoholic cardiomyopathy (Acute) Status cardiac pacemaker (Acute) Debilitated patient (Acute) Hospice care patient (Acute) - VTE Risk Labs: VTE Related Lab Results Hgb 10.3 g/dL (12.2-16.2) L D 10/02/19 04:08 Hct 30.8 % (37.0-47.0) L 10/02/19 04:08 Plt Count 62 K/mm3 (142-424) L D 10/02/19 04:08 BUN 19 mg/dl (7-17) H 10/02/19 04:08 Creatinine 1.20 mg/dl (0.52-1.04) H 10/02/19 04:08 Estimated Creat Clear 30 mL/min (50-200) 10/02/19 04:08 - Prophylaxis Types of VTE Prophylaxis: TEDS Knee High (PANCHO HOSE ORDER PLACED) Location of Applied Device: Bilateral Lower Extremeties
--- NOTE | 2019-10-02 18:47 | PC.NURSE ---
PT HAS BEEN LETHARGIC AND LYING IN BED ALL SHIFT. WHEN PT DOES SPEAK, HER SPEECH IS SLURRED, MUMBLED AND INCOHERENT. PT HAS REFUSED ALL MEALS, LIMITED PO INTAKE WITH FLUIDS. LUNGS REMAIN DIMINISHED THROUGHOUT, O2 SATURATION IN MID TO HIGH 90'S ON 2L NC. PT FREQUENTLY TAKES O2 OFF. ABDOMEN IS SOFT AND TENDER WITH ACTIVE BS IN ALL QUADS. NO BM THIS SHIFT. PT VOIDS YELLOW URINE VIA BRIEF. VSS. SAFETY MEASURES IN PLACE. WILL CONTINUE TO MONITOR
--- NOTE | 2019-10-02 20:04 | PC.NURSE ---
Per ABout,RN--MD aware of pt's decline during previous shift.
--- NOTE | 2019-10-02 23:04 | PC.NURSE ---
RR 12 with pursed lip breathing noted. Unable to verbally respond. Reacts to painful stimuli only. Skin cold to touch. Pt no longer in position, lying on back. Pupil reaction very sluggish.
--- NOTE | 2019-10-03 00:24 | PC.NURSE ---
RR 12, pupils unreactive. No non-verbal s/sx of pain noted.
--- NOTE | 2019-10-03 01:57 | PC.NURSE ---
Pt continues to show no nonverbal s/sx of pain or air hunger. When RN asked questions of pt, she responds unintelligibly. Warm blankets continue to be applied and reapplied. Pt removes blankets from legs within minutes. Pupils continue to appear visibly unreactive.
--- NOTE | 2019-10-03 02:43 | PC.NURSE ---
Pt continues to show no nonverbal s/sx of distress/air hunger/pain.
[2019-10-03 03:35] VITALS: BP 55/42; PULSE 53; RESP 10; O2SAT 93
[2019-10-03 04:00] VITALS: PULSE 60
--- NOTE | 2019-10-03 04:31 | PC.NURSE ---
Boogie Hugger remains in place for hypothermia.
--- NOTE | 2019-10-03 04:34 | PC.NURSE ---
no nonverbal s/sx of pain/distress noted at this time
[2019-10-03 05:59] VITALS: PULSE 77; PULSE 80; O2SAT 90
--- NOTE | 2019-10-03 06:25 | PC.NURSE ---
Boogie steele has been in place most of this shift. Rectal temp now 89.4.
[2019-10-03 08:00] VITALS: BP 54/34; PULSE 48; PULSE 60; PULSE 62; RESP 13; TEMP 32.6; O2SAT 94
--- NOTE | 2019-10-03 08:22 | HMH.ACPN2 ---
Internal Medicine - PN: Subj *Date: 10/03/19 *Time: 08:23 Interval history: Patient appears to be actively dying. He has a very irregular respiratory effort. She remains on the hypothermia blanket. She has minimal response. Exam Vital signs and Labs for Last 24 Hours: Temp Pulse Resp BP Pulse Ox 90.2 F L 48 L 10 L 55/42 L 90 L 10/02/19 20:00 10/03/19 08:00 10/03/19 03:35 10/03/19 03:35 10/03/19 05:59 I & O for Last 24 hours: Intake & Output 09/30/19 10/01/19 10/02/19 10/03/19 11:59 11:59 11:59 11:59 Intake Total 1000 / 1000 3440 / 3440 Balance 1000 / 1000 3440 / 3440 Weight 91 lb 5 oz Microbiology Reports for the Last 24 Hours: Microbiology 10/02/19 01:00 Urine,Clean Catch Urine Culture - Preliminary NO GROWTH AFTER 24 HOURS - Constitutional Comments: Appears to be actively dying. She does appear comfortable. - *Routine Respiratory Exam Present: CTA bilaterally Comments: Irregular respiratory effort with periods of apnea. - *Routine Cardiovascular Exam Present: RRR - *Routine Extremities Exam Absent: edema - *Routine Skin Exam Present: dry Comments: Cool to touch - *Routine Neurological Exam Did seem to nod her head yes to some communication Assessment and Plan (1) Alcoholic cardiomyopathy Current visit: Yes Status: Acute Category: Medical Code(s): I42.6 - Alcoholic cardiomyopathy (2) Debilitated patient Current visit: Yes Status: Acute Category: Medical Code(s): R53.81 - Other malaise (3) Hospice care patient Current visit: Yes Status: Acute Category: Medical Code(s): Z51.5 - Encounter for palliative care (4) Status cardiac pacemaker Current visit: Yes Status: Acute Category: Surgical Code(s): Z95.0 - Presence of cardiac pacemaker (5) Metabolic acidosis Current visit: Yes Status: Acute Category: Medical Code(s): E87.2 - Acidosis (6) Low body mass index (BMI) Current visit: Yes Status: Acute Category: Medical (7) COPD (chronic obstructive pulmonary disease) Current visit: No Status: Acute Category: Medical Code(s): J44.9 - Chronic obstructive pulmonary disease, unspecified (8) Rectal prolapse Current visit: No Status: Acute Category: Medical Code(s): K62.3 - Rectal prolapse (9) Peripheral neuropathy Current visit: No Status: Chronic Category: Medical Code(s): G62.9 - Polyneuropathy, unspecified (10) Comfort measures only status Current visit: Yes Status: Acute Category: Medical Code(s): Z51.5 - Encounter for palliative care - Assessment and plan all Dx Assessment and Plan for all problems:: We will not draw labs this morning. Plan is to maintain comfort.
--- NOTE | 2019-10-03 09:14 | SW/DCPLANNER ---
Addendum entered by Argentina Swann 10/03/19 11:30: A.D. with Hospice has been here to evaluate this patient. A.DAngelique has stated that patient can be Hospice inpatient since admission on 10/02/2019. A.D. has stated that patient has had a rapid decline since Thursday. Original Note: This patient is currently under Hospice Care. I have spoke with Christa Gagnon with Hospice and she has confirmed this patient is receiving services under Hospice. I have asked Christa due to patients decline can patients Hospice nurse come evaluate. Christa has confirmed that she will send A.D. to [facility] to evaluate this patient.
[2019-10-03 11:16] VITALS: BMI 17.7
[2019-10-03 12:00] VITALS: PULSE 70
--- NOTE | 2019-10-03 13:46 | HMH.ACPN2 ---
Internal Medicine - PN: Subj *Date: 10/03/19 *Time: 13:46 Interval history: Patient pulseless, nonbreathing. Pronounced 1332. Exam Vital signs and Labs for Last 24 Hours: Temp Pulse Resp BP Pulse Ox 90.7 F L 62 13 54/34 L 94 L 10/03/19 08:00 10/03/19 08:00 10/03/19 08:00 10/03/19 08:00 10/03/19 08:00 I & O for Last 24 hours: Intake & Output 10/01/19 10/02/19 10/03/19 10/04/19 11:59 11:59 11:59 11:59 Intake Total 1000 / 1000 3440 / 3440 Output Total 0 / 0 Balance 1000 / 1000 3440 / 3440 Weight 91 lb 5 oz 90 lb 6.232 oz Microbiology Reports for the Last 24 Hours: Microbiology 10/02/19 01:00 Urine,Clean Catch Urine Culture - Preliminary NO GROWTH AFTER 24 HOURS Assessment and Plan (1) Alcoholic cardiomyopathy Current visit: Yes Status: Acute Category: Medical Code(s): I42.6 - Alcoholic cardiomyopathy (2) Debilitated patient Current visit: Yes Status: Acute Category: Medical Code(s): R53.81 - Other malaise (3) Hospice care patient Current visit: Yes Status: Acute Category: Medical Code(s): Z51.5 - Encounter for palliative care (4) Status cardiac pacemaker Current visit: Yes Status: Acute Category: Surgical Code(s): Z95.0 - Presence of cardiac pacemaker (5) Metabolic acidosis Current visit: Yes Status: Acute Category: Medical Code(s): E87.2 - Acidosis (6) Low body mass index (BMI) Current visit: Yes Status: Acute Category: Medical (7) COPD (chronic obstructive pulmonary disease) Current visit: No Status: Acute Category: Medical Code(s): J44.9 - Chronic obstructive pulmonary disease, unspecified (8) Rectal prolapse Current visit: No Status: Acute Category: Medical Code(s): K62.3 - Rectal prolapse (9) Peripheral neuropathy Current visit: No Status: Chronic Category: Medical Code(s): G62.9 - Polyneuropathy, unspecified (10) Comfort measures only status Current visit: Yes Status: Acute Category: Medical Code(s): Z51.5 - Encounter for palliative care - Assessment and plan all Dx Assessment and Plan for all problems:: Release body to home.
--- NOTE | 2019-10-03 15:46 | PC.NURSE ---
1316 PATIENT APPEARED TO BE WITHOUT A PULSE, APNEIC AND NON RESPONSIVE. [address] LARIOS'S OFFICE. THERE WAS NO ANSWER [address] LARIOS. 1318 THIS RN RECEIVED A PHONE CALL BACK FROM [employer] ASKING THIS RN WANTED DR. LARIOS PAGED OR DR. ANAYA WHO IS COMPOSITION PROFESSOR FOR [employer]. THIS RN STATED TO PAGE DR. ANAYA. 1320 THIS RN RECEIVED A PHONE CALL FROM [facility] FOR DR. ANAYA. THIS RN SPOKE WITH MD AND HE STATED TO CALL THE OFFICE. THIS RN EXPLAINED THERE WAS NO ANSWER, MD STATED THERE IS ALWAYS SOMEONE THERE, TRY AGAIN. [address] LARIOS'S OFFICE, RN SPOKE WITH DR. LARIOS AND NOTIFIED HIM OF FINDINGS. STATED THAT HE WOULD COME TO THE FLOOR. 1340 THIS RN PHONED JOHNNY, SPOKE WITH CHAVEZ WARNER , CASE #[id number]. THIS RN WAS INFORMED TO NOT RELEASE THE BODY UNTIL DONATION OF EYES WERE DETERMINED. 1358 JOHNNY PHONED BACK TO STATE PATIENT WAS NOT A CANDIDATE. 1406 THIS RN PHONED EMILIE ANDERSON TO NOTIFY OF AND TO ANSWER QUESTIONS. 1415 THIS RN NOTIFIED SAMARIA GUZMAN [place]. 1440 PATIENT LEFT HOSPITAL VIA GURNEY WITH SAMARIA GUZMAN [employer].
--- NOTE | 2019-10-03 21:47 | [facility].DCSUM ---
General - General Admission date:: 10/02/19 Discharge date: 10/03/19 HPI HPI: This 64-year-old white female was admitted through the emergency room. She was a chronic alcoholic with alcoholic cardiomyopathy, cirrhosis of the liver, and progressive debilitation which had become more severe over the past several months. She had recently become a hospice patient and was designated DNR. Hospital Course Hospital Course: The patient's chest x-ray showed a right lower lobe atelectasis with COPD. She had a chest CTA showing no evidence of PE. She did have COPD but no acute pneumonia. She was admitted for progressive debilitation. She was cachectic and obtunded and supportive care was ordered as she was a DNR. She appeared to be actively dying and had a very irregular respiratory effort. She was hypothermic with multiple electrolyte abnormalities and an elevated lactic acid. By 10/03/2019 the patient became pulseless and was pronounced at 1332. Her body was released to the home. Objective Vital signs: Temp Pulse Resp BP Pulse Ox 90.7 F L 70 13 54/34 L 94 L 10/03/19 08:00 10/03/19 12:00 10/03/19 08:00 10/03/19 08:00 10/03/19 08:00 Narrative: - Constitutional cachectic, obtunded Comments: She is cachectic and poorly responsive. She is basically moribund. - *Routine HEENT Exam Head: Present: normocephalic Eye: Present: PERRL, normal accommodation (She does not follow with her gaze.) ENT: Present: mucous membranes dry - *Routine Neck Exam Absent: tenderness, swelling - Routine Chest/Breast/Axilla Exam Chest wall: Present: pacemaker. Absent: tenderness - *Routine Respiratory Exam Present: decreased breath sounds. Absent: respiratory distress, rhonchi - *Routine Cardiovascular Exam Present: RRR (Paced) - *Routine Abdominal Exam Present: tenderness Comments: She reacts as if she has discomfort when examined. Her abdomen is scaphoid. - *Routine Rectal Exam Comments: Rectal exams not done. She has a history of severe rectal prolapse which has not been able to be surgically addressed due to her debilitated condition. - *Routine Exam Patient deferred: external exam - *Routine Extremities Exam Absent: edema - *Routine Skin Exam Absent: normal turgor Comments: Sallow, almost waxy in appearance. - *Routine Neurological Exam Present: altered mental status She is obtunded and does not have normal response. Results Labs on day of discharge: Preliminary micro results at discharge 10/01/19 21:08 Blood Culture - Preliminary Blood NO GROWTH AFTER 48 HOURS 10/01/19 21:08 Blood Culture - Preliminary Blood NO GROWTH AFTER 48 HOURS 10/02/19 01:00 Urine Culture - Preliminary Urine,Clean Catch NO GROWTH AFTER 24 HOURS DS: Diagnosis - Discharge Diagnosis (1) Alcoholic cardiomyopathy Status: Acute (2) Debilitated patient Status: Acute (3) Hospice care patient Status: Acute (4) Status cardiac pacemaker Status: Acute (5) Metabolic acidosis Status: Acute (6) Low body mass index (BMI) Status: Acute (7) COPD (chronic obstructive pulmonary disease) Status: Acute (8) Rectal prolapse Status: Acute (9) Peripheral neuropathy Status: Chronic (10) Comfort measures only status Status: Acute Discharge Plan - Patient Discharge Instructions Patient Instructions: Chronic Obstructive Pulmonary Disease, DI for Chronic Obstructive Pulmonary Disease, DI for Shortness of Breath - Follow up Plan Disposition: Home Medications: Home Medications Medication Instructions Recorded Confirmed Type Spironolactone [Spironolactone 25 mg PO DAILY 04/27/18 10/02/19 History 25mg Tablet] Levothyroxine Sodium [Synthroid 150 mcg PO DAILY 06/13/18 10/02/19 History 150mcg (0.15mg) tablet] Cholecalciferol (Vitamin D3) 2,000 units PO DAILY 06/14/18 10/02/19 History [Vitamin D3]
== END 2019-10-03 14:40 | disposition expired | DRG 316 ==
LOC: ER 10-02 00:37 → 2ND 10-02 01:07
PROVIDERS: Admitting Provider Family Medicine; Emergency Provider Emergency Medicine; PCP Family Medicine; Visit Provider Family Medicine
DX: I42.6 Alcoholic cardiomyopathy; E03.9 Hypothyroidism, unspecified; I50.9 Heart failure, unspecified; Z99.81 Dependence on supplemental oxygen; Z95.0 Presence of cardiac pacemaker; I25.2 Old myocardial infarction; Z72.0 Tobacco use; K62.3 Rectal prolapse; Z66 Do not resuscitate; Z88.2 Allergy status to sulfonamides; Z88.0 Allergy status to penicillin; Z88.8 Allergy status to other drugs, medicaments and biological substances; Z79.890 Hormone replacement therapy; Z79.899 Other long term (current) drug therapy; I11.0 Hypertensive heart disease with heart failure; K70.30 Alcoholic cirrhosis of liver without ascites
CPT/HCPCS: 71045; 71275; 80048; 80053; 81001; 82803; 83605; 83735; 84484; 85007; 85025; 85651; 86140; 86328; 87040; 87086; 93005; 94640; 96365; 96375; 99285; Q9967